=== PATIENT | female | born 1940 | race Asian ===

== ENCOUNTER 2018-03-07 13:04 | Emergency (ER) | payer OTHER, MEDICARE ==
[2018-03-07 13:10] VITALS: BMI 21.4
--- NOTE | 2018-03-07 13:11 | PDOC ---
History of Present Illness - General Chief Complaint: Pain, Acute Stated Complaint: SHOULDER PAIN - History of Present Illness Initial Comments: The patient is a 77F w/ a history of breast ca s/p lumpectomy, hypothyroidism, T2DM, HTN, s/p L shoulder arthroplasty 3y ago who presents for evaluation of 10d of worsening, atraumatic, L shoulder pain. Denies joint swelling/redness, denies changes in sensation. Denies ever having had this type of pain since prior to her surgery. Denies fevers/chills, States that previously, her orthopedist would give her an injection in her shoulder that would alleviate this type of pain. Her orthopedist is in [place] and her PCP is unable to see her until next week. At baseline the patient reports she is able to abduct her L shoulder to 90degrees and is now unable to abduct her shoulder at all 2/2 pain Tried Tylenol 1g w/ minimal relief 03/07/18 13:42 Past History - Past Medical History Allergies/Adverse Reactions: Allergies Allergy/AdvReac Type Severity Reaction Status Date / Time No Known Allergies Allergy Verified 03/07/18 13:05 Home Medications: Ambulatory Orders Levothyroxine [Synthroid -] 25 mcg PO DAILY 03/07/18 Losartan Potassium 25 mg PO DAILY 03/07/18 Metformin HCl [Glucophage] 500 mg PO BID 03/07/18 Naproxen 500 gm MC BID PRN 10 Days #20 powder 03/07/18 Terazosin HCl [Hytrin] 1 mg PO DAILY 03/07/18 Review of Systems - Review of Systems Able to Perform ROS?: Yes Comments:: GENERAL/CONSTITUTIONAL: No fever or chills. No weakness HEAD, EYES, EARS, NOSE AND THROAT: No change in vision. No ear pain or discharge. No sore throat CARDIOVASCULAR: No chest pain or shortness of breath RESPIRATORY: No cough, wheezing, or hemoptysis GASTROINTESTINAL: No nausea, vomiting, diarrhea or constipation GENITOURINARY: No dysuria, frequency, or change in urination SKIN: No rash NEUROLOGIC: No headache, vertigo, loss of consciousness, or change in strength/ sensation ENDOCRINE: No increased thirst. No abnormal weight change HEMATOLOGIC/LYMPHATIC: No anemia, easy bleeding, or history of blood clots ALLERGIC/IMMUNOLOGIC: No hives or skin allergy 03/07/18 13:10 *Physical Exam - Vital Signs Vital Signs Temp Pulse Resp BP Pulse Ox 97 F L 92 H 16 140/60 100 03/07/18 13:06 03/07/18 13:06 03/07/18 13:06 03/07/18 13:06 03/07/18 13:06 03/07/18 13:10 - Physical Exam Comments: GENERAL: Awake, alert, and fully oriented, in no acute distress HEAD: No signs of trauma, normocephalic, atraumatic EYES: PERRLA, EOMI, sclera anicteric, conjunctiva clear ENT: Hearing grossly normal, nares patent, oropharynx clear without exudates. Moist mucosa LUNGS: breathing comfortably on room air, speaking in full sentences, symmetric chest rise HEART: Regular rate and rhythm, normal S1 and S2, no murmurs appreciated, peripheral pulses normal and equal bilaterally ABDOMEN: Soft, nontender, normoactive bowel sounds. No guarding, no rebound NEUROLOGICAL: Cranial nerves II through XII grossly intact. Normal speech, normal gait, no focal sensorimotor deficits SKIN: Warm, Dry, normal turgor, no rashes or lesions noted RUE: Inspection: No erythema or ecchymosis. Exquisite TTP over acromion process and with AROM/PROM of the shoulder; no distal TTP or limitations in ROM; no open wounds. Compartments soft and compressible Sensation: sensation present to light touch m/r/u n Motor: intact AIN/PIN/Ulnar in hand; 5/5 Wrist flex/ext; 5/5 Elbow flex/ext; 2/ 5 Shoulder ABd,Flex limited by pain Vascular: 2+ radial pulse palpated, BCR all fingers <2 sec. LUE: Inspection: No erythema or ecchymosis. No tenderness, no obvious abnormalities, no open wounds. Compartments soft and compressible, pain within proportion, no pain to passive stretch Sensation: sensation present to light touch m/r/u n Motor: intact AIN/PIN/Ulnar in hand; 5/5 Wrist flex/ext; 5/5 Elbow flex/ext; 5/ 5 Shoulder ABd,Flex Vascular: 2+ radial pulse palpated, BCR all fingers <2 sec. 03/07/18 13:10 ED Treatment Course - LABORATORY CBC & Chemistry Diagram: 03/07/18 14:02 03/07/18 14:02 Medical Decision Making - Medical Decision Making The patient is a 77F w/ a history of b/l shoulder arthroplasty who presents for evaluation of 10d of worsening L shoulder pain and subsequent decreased ROM. Shoulder is point TTP over acromion. CMP, CBC, cardiac enzymes ECG CXR, L shoulder series Toradol 15mg IV once 03/07/18 13:46 No leukocytosis Hgb 10, at baseline per pt 03/07/18 14:27 Trop I neg Lytes wnl no VAHID 03/07/18 15:28 XR w/o evidence of fx, dislocation, effusion, or SQ air Patient provided with sling Rx for Naproxen to pt's pharmacy Discharge instructions and return precautions given Ortho referral given Plan discussed w/ patient is in agreement and verbalized understanding Dispo: Home w/ ortho f/u 03/07/18 18:44 *DC/Admit/Observation/Transfer Diagnosis at time of Disposition: Left shoulder pain Qualifiers: Chronicity: acute Qualified Code(s): M25.512 - Pain in left shoulder - Discharge Dispostion Disposition: HOME Condition at time of disposition: Stable Decision to Admit order: No - Prescriptions Prescriptions: Naproxen 500 gm MC BID PRN 10 Days #20 powder PRN Reason: Pain - Referrals Referrals: Christopher Smith DO [Staff Physician] - - Patient Instructions Printed Discharge Instructions: DI for Shoulder Pain Additional Instructions: You were seen in the Emergency Department today for evaluation of left shoulder pain. You were evaluated and found not to have a fracture or dislocations. There is also no evidence of infection, build up of joint fluid, or overt joint inflammation. Please review the handout provided at discharge. You were given a referral to orthopedics, please follow up with them as well as your primary care provider. Return to the Emergency Department if you develop worsening pain, joint swelling or redness, changes in sensation, fevers/chills, or any new/concerning symptoms. - Post Discharge Activity
[2018-03-07] MEDS ORDERED: KETOROLAC TROMETHAMINE 15 MG/ML VIAL IVPUSH ONE (13:41)
[2018-03-07] MEDS ORDERED: KETOROLAC TROMETHAMINE 15 MG/ML VIAL ONE (13:51)
[2018-03-07 14:07] LABS: HEMOGLOBIN 10.5 GM/dL (10.7-15.3); MCH 25.6 pg (25.7-33.7); MCHC 31.8 g/dl (32.0-36.0); MEAN CELL VOLUME 80.6 fl (80-96); MEAN PLT VOLUME 7.6 fl (7.5-11.1); PLATELET COUNT 309 K/MM3 (134-434); RBC 4.09 M/mm3 (3.60-5.2); RDW 15.5 % (11.6-15.6); WHITE BLOOD COUNT 6.1 K/mm3 (4.0-10.0)
--- NOTE | 2018-03-07 14:33 | PDOC ---
Attending Attestation - Resident Resident Name: Jasper Mejia - ED Attending Attestation I have performed the following: I have examined & evaluated the patient, The case was reviewed & discussed with the resident, I agree w/resident's findings & plan, Exceptions are as noted - HPI HPI: 03/07/18 14:23 This is a 77 year old female with a significant past medical history of breast cancer in remission on tamoxifen, HLD, and HTN, that presents to the emergency department today complaining of left shoulder pain for 10 days. Patient notes she began feeling pain in the shoulder 10 days ago without any trauma. Patient reports that pain has gotten progressively worse, and is exacerbated with any movement of the left upper extremity. She notes the pain she is currently experiencing is similar to what she felt prior to her TSR, but she has not felt anything similar after the surgery. She does note the pain became worse after 2 sessions of PT in the last week, especially after the kinesio tape was placed. She removed the KT this AM from her shoulder with improvement. Patient tried Tylenol, with minimal relief. Patient notes she has had a steroid injection in the past which provided her with significant relief. Her injections were given by her ortho surgeon in [place] and thus she called 911 today to come to the ED for a steroid injection. Denies CP, SOB. Shoulder pain not worse with exertion, not pleuritic. Denies fevers, chills, dizziness, diaphoresis, weakness/numbness Denies n/v/d, abd pain Denies paresthesia. Surgical hx: L partial mastectomy and L shoulder arthroplasty. PCP: none reported - Physicial Exam PE: 03/07/18 14:33 GENERAL: Awake, alert, and fully oriented, in no acute distress EYES: EOMI, sclera anicteric, conjunctiva clear ENT: Oropharynx clear without exudates. Moist mucosa NECK: Normal ROM, supple, no lymphadenopathy, JVD, or masses LUNGS: Breath sounds equal, clear to auscultation bilaterally. No wheezes, and no crackles HEART: Regular rate and rhythm, normal S1 and S2, no murmurs, rubs or gallops ABDOMEN: Soft, nontender, normoactive bowel sounds. No guarding, no rebound. No masses EXTREMITIES: L shoulder with exquisite ttp over the L acromion, worse with ROM of the L shoulder. No edema. No cords, erythema. 2+ peripheral pulses. WWP distally NEUROLOGICAL: Normal speech, cranial nerves intact, 5/5 strength in all 4 extremities, normal sensation to light touch in all 4 extremities, normal gait SKIN: Warm, Dry, normal turgor, no rashes or lesions noted. - Medical Decision Making 03/07/18 14:43 77yo F hx HTN, HL, DM, breast ca in remission presents to the ED with atraumatic L shoulder pain worse after starting PT. Pt requesting steroid injection as her previous ortho is in [place]. This is likely musculoskeletal pain but as the pt has risk factors for ACS, trop and EKG have been checked which are wnl. CXR ordered to eval for structural disease, infiltrate or new mets ordered as is dedicated L shoulder XR. Will give toradol for pain control and reassess. 03/07/18 17:25 Pt feels better with toradol Labs wnl. CXR and L shoulder film with no acute findings Likely MSK pain PT's son at bedside requesting ortho to give steroid injection in ED Ortho c/s, but no call back yet Pt would prefer not to wait for ortho and would like to f/u as an outpt Referral given Pt is clinically well appearing, stable for DC home I discussed the physical exam findings, ancillary test results and final diagnoses with the patient. I answered all of the patient's questions. The patient was satisfied with the care received and felt comfortable with the discharge plan and treatment plan. The patient will call their primary care physician within 24 hours to arrange follow-up and will return to the Emergency Department with any new, persistent or worsening symptoms. Heart Score/ECG Review #1 03/07/18 14:42 Twelve-lead EKG was performed and reviewed by me. Normal sinus rhythm, rate 76. Normal axis and intervals. No ST elevations. No significant change compared to EKG from 03/03/2006.
[2018-03-07 14:34] LABS: ALBUMIN 3.5 g/dl (3.4-5.0); ALK PHOS 73 U/L (45-117); ANION GAP 11 MMOL/L (8-16); BILIRUBIN,TOTAL 0.3 mg/dL (0.2-1); BLOOD UREA NITROGEN 16 mg/dL (7-18); CALCIUM 8.3 mg/dL (8.5-10.1); CHLORIDE 96 mmol/L (98-107); CO2 24 mmol/L (21-32); CREATININE 0.7 mg/dL (0.55-1.3); GLUCOSE,RANDOM 92 mg/dL (74-106); POTASSIUM 4.5 mmol/L (3.5-5.1); SGOT/AST 36 U/L (15-37); SGPT/ALT 31 U/L (13-61); SODIUM 131 mmol/L (136-145); TOT PROT 7.5 g/dl (6.4-8.2)
--- NOTE | 2018-03-07 15:39 | EKG ---
Test Reason : Blood Pressure : / mmHG Vent. Rate : 076 BPM Atrial Rate : 076 BPM P-R Int : 146 ms QRS Dur : 078 ms QT Int : 378 ms P-R-T Axes : 058 -05 014 degrees QTc Int : 425 ms NORMAL SINUS RHYTHM POSSIBLE LEFT ATRIAL ENLARGEMENT LEFT VENTRICULAR HYPERTROPHY CANNOT RULE OUT SEPTAL INFARCT , AGE UNDETERMINED ABNORMAL ECG WHEN COMPARED WITH ECG OF 03-MAR-2006 17:30, MINIMAL CRITERIA FOR SEPTAL INFARCT ARE NOW PRESENT NONSPECIFIC T WAVE ABNORMALITY NO LONGER EVIDENT IN LATERAL LEADS Confirmed by MEDARDO GORDON, JESUS ([id number]) on 03/07/2018 3:38:57 PM Referred By: Confirmed By:JESUS BATRES MD
[2018-03-07 17:38] VITALS: BP 157/71; PULSE 76; TEMP 98.3
== END 2018-03-07 17:39 | disposition home or self-care (01) ==
LOC: JER 13:04
PROC: 3E0333Z Introduction of Anti-inflammatory into Peripheral Vein, Percutaneous Approach (ICD-10-PCS; principal; 2018-03-07)
DX: M25.512 Pain in left shoulder (principal); I10 Essential (primary) hypertension; E11.9 Type 2 diabetes mellitus without complications; Z79.84 Long term (current) use of oral hypoglycemic drugs; E03.9 Hypothyroidism, unspecified; Z85.3 Personal history of malignant neoplasm of breast
CPT/HCPCS: 36415; 71046-TC-FY; 73030-TC-LT-FY; 80053; 82550; 82553; 84484; 85027; 93005; 93010; 99283-25

== ENCOUNTER → 2018-03-22 | Day surgery (SDC) | payer OTHER, MEDICARE ==
[~2018-03-22] MED LIST: IBUPROFEN 400 MG TABLET (FP) PO PRN
--- NOTE | 2018-03-22 03:01 | HP ---
History & Physical Update - History History: No Change - Physical Physical: No Change - Assessment Assessment: No Change - Plan Plan: No Change (No change in HP from 03/13/18)
[2018-03-22 07:12] VITALS: BP 124/62; PULSE 80; TEMP 98.3; BMI 23.2
== END | disposition home or self-care (01) ==
LOC: JASU-SURG 06:18 → EDSTATUS 14:20
PROVIDERS: ATTEND Obstetrics & Gynecology
PROC: 3E013GC Introduction of Other Therapeutic Substance into Subcutaneous Tissue, Percutaneous Approach (ICD-10-PCS; principal; 2018-03-22)
DX: Z53.8 Procedure and treatment not carried out for other reasons (principal)
CPT/HCPCS: 86850; 86900; 86901

== ENCOUNTER 2018-09-20 07:20 | Day surgery (SDC) | payer OTHER, MEDICARE ==
[2018-09-20] MEDS ORDERED: ZOLEDRONIC ACID 4 MG in SODIUM CHLORIDE 100 ML IVPB ONE (10:00)
[2018-09-20 11:59] LABS: BASO % 0.8 % (0-2.0); EOS % 1.5 % (0-4.5); HEMATOCRIT 36.1 % (32.4-45.2); HEMOGLOBIN 11.8 GM/dL (10.7-15.3); LYMPH % 20.6 % (8-40); MCH 28.9 pg (25.7-33.7); MCHC 32.6 g/dl (32.0-36.0); MEAN CELL VOLUME 88.6 fl (80-96); MEAN PLT VOLUME 8.3 fl (7.5-11.1); MONO % 10.4 % (3.8-10.2); NEUT % 66.7 % (42.8-82.8); PLATELET COUNT 253 K/MM3 (134-434); RBC 4.07 M/mm3 (3.60-5.2); RDW 18.4 % (11.6-15.6); WHITE BLOOD COUNT 5.5 K/mm3 (4.0-10.0)
[2018-09-20 12:22] LABS: ALBUMIN 3.2 g/dl (3.4-5.0); BILIRUBIN,DIRECT 0.1 mg/dL (0.0-0.2); BILIRUBIN,TOTAL 0.4 mg/dL (0.2-1); CALCIUM 8.6 mg/dL (8.5-10.1); CREATININE 0.8 mg/dL (0.55-1.3); MAGNESIUM 2.1 mg/dL (1.8-2.4); POTASSIUM 4.5 mmol/L (3.5-5.1); TOT PROT 6.9 g/dl (6.4-8.2)
[2018-09-20 17:32] VITALS: TEMP 98.9
[2018-09-20 17:34] VITALS: BP 158/72; PULSE 80
== END 2018-09-20 13:40 | disposition home or self-care (01) ==
LOC: JONCCHEMO 07:20 → J7W 11:52 → JONCCHEMO 13:40
PROVIDERS: ATTEND Internal Medicine Hematology & Oncology
PROC: 3E033GC Introduction of Other Therapeutic Substance into Peripheral Vein, Percutaneous Approach (ICD-10-PCS; principal; 2018-09-20)
DX: C50.919 Malignant neoplasm of unspecified site of unspecified female breast (principal); C78.00 Secondary malignant neoplasm of unspecified lung; C79.51 Secondary malignant neoplasm of bone
CPT/HCPCS: 36415; 80048; 80076; 82728; 83036; 83735; 85025; 96417; J3489

== ENCOUNTER 2018-09-24 15:44 | Emergency (ER) | payer OTHER, MEDICARE ==
[2018-09-24 15:58] VITALS: BP 157/71; PULSE 96; TEMP 98; BMI 23.4
--- NOTE | 2018-09-24 17:04 | PDOC ---
Attending Attestation - Resident Resident Name: Young Love - ED Attending Attestation I have performed the following: I have examined & evaluated the patient, The case was reviewed & discussed with the resident, I agree w/resident's findings & plan, Exceptions are as noted - HPI HPI: 09/24/18 17:03 thsi 77 yo female was in outpt radiology and tripped and sustained a forehead laceration - Physicial Exam PE: 09/24/18 18:48 77 yo female had a witnessed mechanical fall in outpt radiology and sustained a forehead laceration head there is a forehead laceration neck no midline tenderness lungs no rales cvs [id number] abd nontender ext chronic left shoulder pain neuro axox3 skin warm and dry 09/24/18 23:28 - Medical Decision Making 09/24/18 23:29 ct scan of head no acute intracranial pathology ct scan of left shoulder shows the same fracture,no changed from previous ct scan pt to continue her follow up with her orthopedist d/c home
--- NOTE | 2018-09-24 17:06 | PDOC ---
History of Present Illness - General Chief Complaint: Injury Stated Complaint: RAPID RESPONSE / LAC Time Seen by Provider: 09/24/18 16:46 - History of Present Illness Initial Comments: 09/24/18 17:37 77 year old female with a significant past medical history of breast cancer with mets, bilateral shoulder replacement, HLD, and HTN, that presents to the emergency department today after a fall she sustained in our radiology hallway as she was on her way to get a b/l xray of the shoulders. She fell on her forehead and sustained a laceration. She did not end up getting her shoulder xrays. Past History - Past Medical History Allergies/Adverse Reactions: Allergies Allergy/AdvReac Type Severity Reaction Status Date / Time acetaminophen [From Vicodin] Allergy "can't Verified 09/24/18 16:01 remember reaction" fentanyl Allergy "feels out Verified 09/24/18 16:01 of it" gabapentin Allergy Verified 09/24/18 16:01 hydrocodone [From Vicodin] Allergy "can't Verified 09/24/18 16:01 remember reaction" indomethacin [From Indocin] Allergy "couldn't Verified 09/24/18 16:01 open eyes" sulfamethoxazole Allergy "rash on Verified 09/24/18 16:01 [From Bactrim] hands" trimethoprim [From Bactrim] Allergy "rash on Verified 09/24/18 16:01 hands" ibuprofen AdvReac "burning Verified 09/24/18 16:01 in stomach" naproxen [From Aleve] AdvReac "burning Verified 09/24/18 16:01 in stomach" oxaprozin [From Daypro] AdvReac "stomach Verified 09/24/18 16:01 intolerance-burning" Home Medications: Ambulatory Orders Levothyroxine [Synthroid -] 25 mcg PO DAILY 03/07/18 Losartan Potassium 25 mg PO BID 03/07/18 Metformin HCl [Glucophage] 500 mg PO BID 03/07/18 Terazosin HCl [Hytrin] 1 mg PO HS 03/07/18 Aspirin Coated [Ecotrin -] 81 mg PO DAILY 03/20/18 Famotidine [Pepcid] 20 mg PO PRN PRN 03/20/18 Omeprazole 40 mg PO DAILY 03/20/18 Simvastatin 10 mg PO HS 03/20/18 Tamoxifen Citrate 20 mg PO DAILY 03/20/18 Meloxicam 7.5 mg PO BID 03/22/18 Anemia: Yes Asthma: No Cancer: Yes (breast left mastectomy) Cardiac Disorders: No CVA: No COPD: No CHF: No Dementia: No Diabetes: Yes GI Disorders: Yes (acid reflux) Disorders: No HTN: Yes Hypercholesterolemia: Yes Liver Disease: No Seizures: No Thyroid Disease: Yes (hyper) - Surgical History Abdominal Surgery: No Orthopedic Surgery: (trena shoulder replacement) - Suicide/Smoking/Psychosocial Hx Smoking History: Never smoked Have you smoked in the past 12 months: No Information on smoking cessation initiated: No Hx Alcohol Use: No Drug/Substance Use Hx: No Substance Use Type: None Hx Substance Use Treatment: No Review of Systems - Review of Systems Able to Perform ROS?: Yes Is the patient limited Sami proficient: No Constitutional: No: Symptoms Reported HEENTM: Yes: See HPI Respiratory: No: Symptoms reported Cardiac (ROS): No: Symptoms Reported : No: Symptoms Reported Musculoskeletal: Yes: See HPI Integumentary: No: Symptoms Reported All Other Systems: Reviewed and Negative *Physical Exam - Vital Signs Last Vital Signs Temp Pulse Resp BP Pulse Ox 98.0 F 96 H 16 157/71 100 09/24/18 15:45 09/24/18 15:45 09/24/18 15:45 09/24/18 15:45 09/24/18 15:45 - Physical Exam General Appearance: Yes: Thin HEENT: positive: Other (3cm laceration over left forehead. ) Respiratory/Chest: positive: Lungs Clear, Normal Breath Sounds. negative: Chest Tender, Respiratory Distress Cardiovascular: positive: Regular Rhythm, Regular Rate, S1, S2 Gastrointestinal/Abdominal: positive: Normal Bowel Sounds, Flat, Soft. negative : Tender Musculoskeletal: positive: Normal Inspection. negative: CVA Tenderness Extremity: positive: Normal Capillary Refill, Normal Inspection, Other (left arm in a sling. ) Integumentary: positive: Normal Color, Dry, Warm Neurologic: positive: Fully Oriented, Alert, Normal Mood/Affect, Normal Response , Motor Strength 5/5 Procedures - Laceration/Wound Repair Left Anterior Head Wound Length: 2.6 to 5.0 cm Wound Explored: clean Wound's Depth, Shape: superficial Irrigated w/ Saline: Yes Anesthesia: 2% Lidocaine Wound Repaired With: Sutures Suture Size/Type: 6:0, proline Number of Sutures: 6 ED Treatment Course - RADIOLOGY Radiology Studies Ordered: Category Date Time Status CERVICAL SPINE CT W/O CONTR [CT] Stat CT Scan 09/24/18 16:[address] WITHOUT CONTRAST [CT] Stat CT Scan 09/24/18 16:47 Ordered Medical Decision Making - Medical Decision Making 09/24/18 20:08 77f who sustained laceration to forehead s/p fall. Will get head and cervical ct to r/o fracture or bleed. Ct read negative for fracture of bleed. Laceration repaired with 6x sutures. Pending Shoulder xrays read. 09/24/18 20:17 No fracture seen on xray. Patient still complains of pain of her right shoulder , says she would feel more comfortable getting a ct shoulder as it uncovered a fracture the last time. 09/24/18 20:57 09/24/18 23:[address] shoulder read. 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 No gross dislocation or acute fracture is identified. Previously described left acromial nonhealing fracture again seen. Orthopedics consult is suggested. Patient will follow up with Orthopedic surgery. Patient now complaining of pain upon swallowing, small pus-filled sac in top corner of mouth. Will follow up with PCP or dentist. *DC/Admit/Observation/Transfer Diagnosis at time of Disposition: Fall, Left shoulder pain - Discharge Dispostion Disposition: HOME Condition at time of disposition: Improved Decision to Admit order: No - Referrals Referrals: De Lovell DO [Staff Physician] - - Patient Instructions Printed Discharge Instructions: DI for Laceration Repair -- Simple Additional Instructions: Come back in 3 to 5 days for suture removal. Follow up with your orthopedic surgeon about your fracture (unchanged). Come back to the emergency department for any new, worsening or concerning symptom. - Post Discharge Activity
[2018-09-24] MEDS ORDERED: LIDOCAINE HCL 2% (50ML VIAL) SQ ONE (18:56)
[2018-09-24] MEDS ORDERED: LIDOCAINE HCL 2% (20ML MULTI-DOSE VIAL) NR ONE (19:02)
== END 2018-09-25 00:05 | disposition home or self-care (01) ==
LOC: JER 15:44
PROC: 0HQ1XZZ Repair Face Skin, External Approach (ICD-10-PCS; principal; 2018-09-24)
PROC: 3E013BZ Introduction of Anesthetic Agent into Subcutaneous Tissue, Percutaneous Approach (ICD-10-PCS; 2018-09-24)
DX: S01.81XA Laceration without foreign body of other part of head, initial encounter (principal); W18.39XA Other fall on same level, initial encounter; Y93.89 Activity, other specified; Y92.232 Corridor of hospital as the place of occurrence of the external cause; Y99.8 Other external cause status; I10 Essential (primary) hypertension; E78.00 Pure hypercholesterolemia, unspecified; E05.90 Thyrotoxicosis, unspecified without thyrotoxic crisis or storm; E11.9 Type 2 diabetes mellitus without complications; Z79.84 Long term (current) use of oral hypoglycemic drugs; K21.9 Gastro-esophageal reflux disease without esophagitis; Z85.3 Personal history of malignant neoplasm of breast; Z90.12 Acquired absence of left breast and nipple
CPT/HCPCS: 12013; 70450-TC; 71046-TC-FY; 71101-TC-LT-FY; 72125-TC; 73030-TC-LT-FY; 73030-TC-RT-FY; 73200-TC-RT; 96372; 99282-25

== ENCOUNTER 2018-09-30 02:21 | Emergency (ER) | payer OTHER, MEDICARE | END 2018-09-30 06:55 | disposition home or self-care (01) | LOC: JER 02:21 ==

== ENCOUNTER 2018-12-13 07:05 | Day surgery (SDC) | payer OTHER, MEDICARE ==
[2018-12-13 08:51] LABS: BASO % 0.7 % (0-2.0); EOS % 2.9 % (0-4.5); HEMOGLOBIN 12.7 GM/dL (10.7-15.3); LYMPH % 21.1 % (8-40); MCH 30.3 pg (25.7-33.7); MCHC 33.4 g/dl (32.0-36.0); MEAN CELL VOLUME 90.7 fl (80-96); MEAN PLT VOLUME 8.2 fl (7.5-11.1); MONO % 9.3 % (3.8-10.2); PLATELET COUNT 241 K/MM3 (134-434); RBC 4.18 M/mm3 (3.60-5.2); RDW 13.8 % (11.6-15.6); WHITE BLOOD COUNT 5.3 K/mm3 (4.0-10.0)
[2018-12-13 09:13] LABS: ALBUMIN 3.8 g/dl (3.4-5.0); BILIRUBIN,DIRECT 0.2 mg/dL (0.0-0.2); BILIRUBIN,TOTAL 0.4 mg/dL (0.2-1); BLOOD UREA NITROGEN 15.9 mg/dL (7-18); CALCIUM 8.9 mg/dL (8.5-10.1); CREATININE 0.8 mg/dL (0.55-1.3); MAGNESIUM 2.2 mg/dL (1.8-2.4); POTASSIUM 4.2 mmol/L (3.5-5.1); TOT PROT 7.8 g/dl (6.4-8.2)
[2018-12-13] MEDS ORDERED: ZOLEDRONIC ACID 4 MG in SODIUM CHLORIDE 100 ML IVPB ONE (10:00)
[2018-12-13 10:22] LABS: INR 0.92 (0.83-1.09); PROTHROMBIN TIME (PATIENT) 10.9 SEC (9.7-13.0)
[2018-12-13 13:10] VITALS: TEMP 97.5
[2018-12-13 13:15] VITALS: BP 168/48; PULSE 81
[2018-12-14 08:06] LABS: CARCINOEMBRYONIC ANTIGEN 4.3 ng/mL (0.0-4.7)
== END 2018-12-13 11:30 | disposition home or self-care (01) | DRG 951 ==
LOC: JONCCHEMO 07:05 → J7W 07:47 → UNDOADMIN 07:47 → JONCCHEMO 11:30 → UNDODISIN 11:30
PROVIDERS: ATTEND Internal Medicine Hematology & Oncology
PROC: 3E033GC Introduction of Other Therapeutic Substance into Peripheral Vein, Percutaneous Approach (ICD-10-PCS; principal; 2018-12-13)
DX: C50.919 Malignant neoplasm of unspecified site of unspecified female breast (principal); C79.51 Secondary malignant neoplasm of bone; C78.00 Secondary malignant neoplasm of unspecified lung; Z76.89 Persons encountering health services in other specified circumstances
CPT/HCPCS: 36415; 80048; 80076; 82378; 82728; 83036; 83540; 83550; 83735; 85025; 85610; 86300; 96417; J3489

== ENCOUNTER 2019-01-10 05:31 | Day surgery (SDC) | payer OTHER, MEDICARE ==
[2019-01-10] MEDS ORDERED: ZOLEDRONIC ACID 4 MG in SODIUM CHLORIDE 100 ML IVPB ONE (09:00)
[2019-01-10 09:33] LABS: BASO % 0.9 % (0-2.0); EOS % 2.5 % (0-4.5); HEMATOCRIT 38.9 % (32.4-45.2); HEMOGLOBIN 12.9 GM/dL (10.7-15.3); LYMPH % 22.1 % (8-40); MCH 30.1 pg (25.7-33.7); MCHC 33.2 g/dl (32.0-36.0); MEAN CELL VOLUME 90.5 fl (80-96); MEAN PLT VOLUME 8.3 fl (7.5-11.1); MONO % 10.1 % (3.8-10.2); NEUT % 64.4 % (42.8-82.8); PLATELET COUNT 276 K/MM3 (134-434); RDW 13.7 % (11.6-15.6); WHITE BLOOD COUNT 5.4 K/mm3 (4.0-10.0)
[2019-01-10 09:55] LABS: ALBUMIN 3.7 g/dl (3.4-5.0); BILIRUBIN,DIRECT 0.2 mg/dL (0.0-0.2); BILIRUBIN,TOTAL 0.4 mg/dL (0.2-1); BLOOD UREA NITROGEN 14.7 mg/dL (7-18); CALCIUM 9.2 mg/dL (8.5-10.1); CREATININE 0.9 mg/dL (0.55-1.3); IRON SERUM 79 ug/dL (50-175); MAGNESIUM 2.2 mg/dL (1.8-2.4); POTASSIUM 4.3 mmol/L (3.5-5.1); TOT PROT 7.5 g/dl (6.4-8.2); TOTAL IRON BINDING CAPACITY 444 ug/dL (250-450)
[2019-01-10 14:39] VITALS: TEMP 97.6
[2019-01-10 15:41] VITALS: BP 154/58; PULSE 82
== END 2019-01-10 11:45 | disposition home or self-care (01) ==
LOC: JONCCHEMO 05:31 → J7W 09:29 → JONCCHEMO 11:45
PROVIDERS: ATTEND Internal Medicine Hematology & Oncology
PROC: 3E033GC Introduction of Other Therapeutic Substance into Peripheral Vein, Percutaneous Approach (ICD-10-PCS; principal; 2019-01-10)
DX: C50.919 Malignant neoplasm of unspecified site of unspecified female breast (principal); C79.51 Secondary malignant neoplasm of bone; C78.00 Secondary malignant neoplasm of unspecified lung
CPT/HCPCS: 36415; 80048; 80076; 82378; 82728; 82784; 83540; 83550; 83735; 85025; 86300; 96365; 96417; J3489

== ENCOUNTER 2019-02-08 06:06 | Day surgery (SDC) | payer OTHER, MEDICARE ==
[2019-02-08] MEDS ORDERED: ZOLEDRONIC ACID 4 MG in SODIUM CHLORIDE 100 ML IVPB ONE (10:00)
[2019-02-08 10:03] LABS: BASO % 0.7 % (0-2.0); EOS % 2.7 % (0-4.5); HEMOGLOBIN 12.4 GM/dL (10.7-15.3); LYMPH % 22.7 % (8-40); MCH 29.6 pg (25.7-33.7); MCHC 32.7 g/dl (32.0-36.0); MEAN CELL VOLUME 90.4 fl (80-96); MONO % 9.4 % (3.8-10.2); NEUT % 64.5 % (42.8-82.8); PLATELET COUNT 290 K/MM3 (134-434); RDW 14.2 % (11.6-15.6); WHITE BLOOD COUNT 5.8 K/mm3 (4.0-10.0)
[2019-02-08 10:44] LABS: ALBUMIN 3.8 g/dl (3.4-5.0); BILIRUBIN,TOTAL 0.4 mg/dL (0.2-1); BLOOD UREA NITROGEN 16.4 mg/dL (7-18); CALCIUM 8.9 mg/dL (8.5-10.1); MAGNESIUM 2.3 mg/dL (1.8-2.4); POTASSIUM 4.4 mmol/L (3.5-5.1); TOT PROT 7.7 g/dl (6.4-8.2)
[2019-02-08 11:56] VITALS: PULSE 77; TEMP 97.8
[2019-02-08 11:58] VITALS: BP 113/52
== END 2019-02-08 11:53 | disposition home or self-care (01) ==
LOC: JONCCHEMO 06:06 → J7W 10:46 → JONCCHEMO 11:53
PROVIDERS: ATTEND Internal Medicine Hematology & Oncology
PROC: 3E033GC Introduction of Other Therapeutic Substance into Peripheral Vein, Percutaneous Approach (ICD-10-PCS; principal; 2019-02-08)
DX: C50.919 Malignant neoplasm of unspecified site of unspecified female breast (principal); C79.51 Secondary malignant neoplasm of bone; C78.00 Secondary malignant neoplasm of unspecified lung; Z76.89 Persons encountering health services in other specified circumstances
CPT/HCPCS: 36415; 80053; 82728; 83540; 83550; 83735; 85025; 96374; J3489

== ENCOUNTER 2019-03-07 07:07 | Day surgery (SDC) | payer OTHER, MEDICARE ==
[2019-03-07] MEDS ORDERED: ZOLEDRONIC ACID 4 MG in SODIUM CHLORIDE 100 ML IVPB ONE (10:00)
[2019-03-07 12:02] LABS: BASO % 1.5 % (0-2.0); EOS % 1.8 % (0-4.5); HEMATOCRIT 37.9 % (32.4-45.2); HEMOGLOBIN 12.3 GM/dL (10.7-15.3); LYMPH % 23.7 % (8-40); MCH 29.8 pg (25.7-33.7); MCHC 32.5 g/dl (32.0-36.0); MEAN CELL VOLUME 91.8 fl (80-96); MEAN PLT VOLUME 8.4 fl (7.5-11.1); MONO % 7.3 % (3.8-10.2); NEUT % 65.7 % (42.8-82.8); PLATELET COUNT 300 K/MM3 (134-434); RBC 4.13 M/mm3 (3.60-5.2); RDW 13.8 % (11.6-15.6); WHITE BLOOD COUNT 6.2 K/mm3 (4.0-10.0)
[2019-03-07 12:41] LABS: ALBUMIN 3.7 g/dl (3.4-5.0); BILIRUBIN,TOTAL 0.6 mg/dL (0.2-1); CREATININE 0.9 mg/dL (0.55-1.3); MAGNESIUM 2.3 mg/dL (1.8-2.4); POTASSIUM 4.6 mmol/L (3.5-5.1); TOT PROT 7.7 g/dl (6.4-8.2)
[2019-03-07 15:44] LABS: IRON SERUM 84 ug/dL (50-175); TOTAL IRON BINDING CAPACITY 437 ug/dL (250-450)
[2019-03-07 15:53] VITALS: BP 152/53; PULSE 82; TEMP 97.9
[2019-03-09 05:11] LABS: CARCINOEMBRYONIC ANTIGEN 4.3 ng/mL (0.0-4.7)
== END 2019-03-07 15:15 | disposition home or self-care (01) ==
LOC: JONCCHEMO 07:07 → J7W 14:05 → JONCCHEMO 15:15
PROVIDERS: ATTEND Internal Medicine Hematology & Oncology
PROC: 3E033GC Introduction of Other Therapeutic Substance into Peripheral Vein, Percutaneous Approach (ICD-10-PCS; principal; 2019-03-07)
DX: C50.919 Malignant neoplasm of unspecified site of unspecified female breast (principal); C79.51 Secondary malignant neoplasm of bone; C78.00 Secondary malignant neoplasm of unspecified lung; Z76.89 Persons encountering health services in other specified circumstances
CPT/HCPCS: 36415; 80053; 82378; 83540; 83550; 83735; 85025; 86300; 96365; J3489

== ENCOUNTER 2019-04-02 06:55 | Day surgery (SDC) | payer MEDICARE, OTHER ==
[2019-04-02] MEDS ORDERED: FULVESTRANT 250 MG/5 ML SYRINGE IM ONE (10:00)
[2019-04-02] MEDS ORDERED: ZOLEDRONIC ACID 4 MG in SODIUM CHLORIDE 100 ML IVPB ONE (10:00)
[2019-04-02 10:02] LABS: BASO % 1.2 % (0-2.0); EOS % 3.6 % (0-4.5); HEMATOCRIT 35.3 % (32.4-45.2); HEMOGLOBIN 11.8 GM/dL (10.7-15.3); LYMPH % 22.2 % (8-40); MCH 30.3 pg (25.7-33.7); MCHC 33.5 g/dl (32.0-36.0); MEAN CELL VOLUME 90.5 fl (80-96); MEAN PLT VOLUME 8.1 fl (7.5-11.1); MONO % 9.7 % (3.8-10.2); NEUT % 63.3 % (42.8-82.8); PLATELET COUNT 279 K/MM3 (134-434); RDW 13.8 % (11.6-15.6); WHITE BLOOD COUNT 5.3 K/mm3 (4.0-10.0)
[2019-04-02 10:42] LABS: ALBUMIN 3.5 g/dl (3.4-5.0); BILIRUBIN,TOTAL 0.3 mg/dL (0.2-1); BLOOD UREA NITROGEN 18.4 mg/dL (7-18); CALCIUM 9.3 mg/dL (8.5-10.1); CREATININE 1.1 mg/dL (0.55-1.3); POTASSIUM 4.3 mmol/L (3.5-5.1); TOT PROT 7.6 g/dl (6.4-8.2)
[2019-04-02 14:41] VITALS: BP 124/48; PULSE 87; TEMP 97.9
[2019-04-03 04:08] LABS: CARCINOEMBRYONIC ANTIGEN 4.5 ng/mL (0.0-4.7)
== END 2019-04-02 12:10 | disposition home or self-care (01) ==
LOC: JONCCHEMO 06:55 → J7W 10:38 → JONCCHEMO 12:10
PROVIDERS: ATTEND Internal Medicine Hematology & Oncology
PROC: 3E02305 Introduction of Other Antineoplastic into Muscle, Percutaneous Approach (ICD-10-PCS; principal; 2019-04-02)
PROC: 3E033GC Introduction of Other Therapeutic Substance into Peripheral Vein, Percutaneous Approach (ICD-10-PCS; 2019-04-02)
DX: Z51.11 Encounter for antineoplastic chemotherapy (principal); C50.412 Malignant neoplasm of upper-outer quadrant of left female breast; C78.01 Secondary malignant neoplasm of right lung; C79.51 Secondary malignant neoplasm of bone; Z17.0 Estrogen receptor positive status [ER+]; I10 Essential (primary) hypertension; E78.00 Pure hypercholesterolemia, unspecified
CPT/HCPCS: 36415; 80053; 82378; 82728; 83540; 83550; 83735; 85025; 86300; 96374; 96402; J3489; J9395

== ENCOUNTER 2019-04-15 07:07 | Day surgery (SDC) | payer OTHER, MEDICARE ==
[2019-04-15] MEDS ORDERED: FULVESTRANT 250 MG/5 ML SYRINGE IM ONE (10:00)
[2019-04-15 18:12] VITALS: BP 139/47; PULSE 88; TEMP 97.5
== END 2019-04-15 14:15 | disposition home or self-care (01) ==
LOC: JONCCHEMO 07:07 → J7W 13:49 → JONCCHEMO 14:15
PROVIDERS: ATTEND Internal Medicine Hematology & Oncology
DX: Z51.11 Encounter for antineoplastic chemotherapy (principal); C50.412 Malignant neoplasm of upper-outer quadrant of left female breast; C78.01 Secondary malignant neoplasm of right lung; C79.51 Secondary malignant neoplasm of bone; Z17.0 Estrogen receptor positive status [ER+]; I10 Essential (primary) hypertension; E78.00 Pure hypercholesterolemia, unspecified
CPT/HCPCS: 96402; J9395

== ENCOUNTER 2019-04-30 05:56 | Day surgery (SDC) | payer OTHER, MEDICARE ==
[2019-04-30] MEDS ORDERED: ZOLEDRONIC ACID 4 MG in SODIUM CHLORIDE 100 ML IVPB ONE (10:00)
[2019-04-30] MEDS ORDERED: FULVESTRANT 250 MG/5 ML SYRINGE IM ONE (10:00)
[2019-04-30 10:04] LABS: EOS % 1.9 % (0-4.5); HEMATOCRIT 34.9 % (32.4-45.2); HEMOGLOBIN 11.6 GM/dL (10.7-15.3); LYMPH % 14.9 % (8-40); MCHC 33.4 g/dl (32.0-36.0); MEAN CELL VOLUME 89.9 fl (80-96); MEAN PLT VOLUME 8.1 fl (7.5-11.1); MONO % 8.9 % (3.8-10.2); NEUT % 73.3 % (42.8-82.8); PLATELET COUNT 273 K/MM3 (134-434); RBC 3.88 M/mm3 (3.60-5.2); RDW 13.8 % (11.6-15.6); WHITE BLOOD COUNT 7.4 K/mm3 (4.0-10.0)
[2019-04-30 10:30] LABS: ALBUMIN 3.7 g/dl (3.4-5.0); BILIRUBIN,TOTAL 0.4 mg/dL (0.2-1); CALCIUM 8.9 mg/dL (8.5-10.1); CREATININE 1.1 mg/dL (0.55-1.3); MAGNESIUM 2.3 mg/dL (1.8-2.4); POTASSIUM 4.2 mmol/L (3.5-5.1); TOT PROT 7.8 g/dl (6.4-8.2)
[2019-04-30 12:56] VITALS: TEMP 97.8
[2019-04-30 13:03] VITALS: BP 165/82; PULSE 83
== END 2019-04-30 12:50 | disposition home or self-care (01) ==
LOC: JONCCHEMO 05:56 → J7W 10:43 → JONCCHEMO 12:50
PROVIDERS: ATTEND Internal Medicine Hematology & Oncology
PROC: 3E02305 Introduction of Other Antineoplastic into Muscle, Percutaneous Approach (ICD-10-PCS; principal; 2019-04-30)
PROC: 3E033GC Introduction of Other Therapeutic Substance into Peripheral Vein, Percutaneous Approach (ICD-10-PCS; 2019-04-30)
DX: Z51.11 Encounter for antineoplastic chemotherapy (principal); C50.412 Malignant neoplasm of upper-outer quadrant of left female breast; C79.51 Secondary malignant neoplasm of bone; C78.01 Secondary malignant neoplasm of right lung; Z17.0 Estrogen receptor positive status [ER+]
CPT/HCPCS: 36415; 80053; 83036; 83735; 85025; 96365; 96402; J3489; J9395

== ENCOUNTER 2019-05-28 05:26 | Day surgery (SDC) | payer OTHER, MEDICARE ==
[2019-05-28 09:39] LABS: BASO % 1.4 % (0-2.0); EOS % 4.2 % (0-4.5); HEMATOCRIT 35.1 % (32.4-45.2); HEMOGLOBIN 11.8 GM/dL (10.7-15.3); LYMPH % 21.7 % (8-40); MCH 30.4 pg (25.7-33.7); MCHC 33.7 g/dl (32.0-36.0); MEAN CELL VOLUME 90.1 fl (80-96); MEAN PLT VOLUME 7.9 fl (7.5-11.1); MONO % 7.8 % (3.8-10.2); NEUT % 64.9 % (42.8-82.8); PLATELET COUNT 284 K/MM3 (134-434); RBC 3.89 M/mm3 (3.60-5.2); RDW 13.6 % (11.6-15.6); WHITE BLOOD COUNT 5.5 K/mm3 (4.0-10.0)
[2019-05-28] MEDS ORDERED: FULVESTRANT 250 MG/5 ML SYRINGE IM ONE (10:00)
[2019-05-28] MEDS ORDERED: ZOLEDRONIC ACID 4 MG in SODIUM CHLORIDE 100 ML IVPB ONE (10:00)
[2019-05-28 10:18] LABS: ALBUMIN 3.5 g/dl (3.4-5.0); BILIRUBIN,TOTAL 0.3 mg/dL (0.2-1); BLOOD UREA NITROGEN 15.4 mg/dL (7-18); CALCIUM 8.6 mg/dL (8.5-10.1); CREATININE 1.1 mg/dL (0.55-1.3); MAGNESIUM 2.2 mg/dL (1.8-2.4); POTASSIUM 3.8 mmol/L (3.5-5.1); TOT PROT 7.7 g/dl (6.4-8.2)
[2019-05-28 15:17] VITALS: BP 141/56; PULSE 79; TEMP 97.4
== END 2019-05-28 11:25 | disposition home or self-care (01) ==
LOC: JONCCHEMO 05:26 → J7W 10:41 → JONCCHEMO 11:25
PROVIDERS: ATTEND Internal Medicine Hematology & Oncology
PROC: 3E02305 Introduction of Other Antineoplastic into Muscle, Percutaneous Approach (ICD-10-PCS; principal; 2019-05-28)
PROC: 3E033GC Introduction of Other Therapeutic Substance into Peripheral Vein, Percutaneous Approach (ICD-10-PCS; 2019-05-28)
DX: Z51.11 Encounter for antineoplastic chemotherapy (principal); C50.412 Malignant neoplasm of upper-outer quadrant of left female breast; C79.51 Secondary malignant neoplasm of bone; C78.01 Secondary malignant neoplasm of right lung; Z17.0 Estrogen receptor positive status [ER+]; I10 Essential (primary) hypertension; E78.00 Pure hypercholesterolemia, unspecified; E61.1 Iron deficiency; K21.9 Gastro-esophageal reflux disease without esophagitis
CPT/HCPCS: 36415; 80053; 82306; 82378; 83735; 85025; 86300; 96365; 96402; J3489; J9395

== ENCOUNTER 2019-06-25 07:17 | Day surgery (SDC) | payer OTHER, MEDICARE ==
[2019-06-25] MEDS ORDERED: FULVESTRANT 250 MG/5 ML SYRINGE IM ONE (10:00)
[2019-06-25] MEDS ORDERED: ZOLEDRONIC ACID 4 MG in SODIUM CHLORIDE 100 ML IVPB ONE (10:00)
[2019-06-25 10:25] LABS: BASO % 1.2 % (0-2.0); EOS % 5.8 % (0-4.5); HEMATOCRIT 33.7 % (32.4-45.2); HEMOGLOBIN 11.4 GM/dL (10.7-15.3); LYMPH % 22.3 % (8-40); MCH 30.4 pg (25.7-33.7); MCHC 33.7 g/dl (32.0-36.0); MEAN CELL VOLUME 90.2 fl (80-96); MONO % 8.9 % (3.8-10.2); NEUT % 61.8 % (42.8-82.8); PLATELET COUNT 269 K/MM3 (134-434); RBC 3.74 M/mm3 (3.60-5.2); RDW 14.1 % (11.6-15.6); WHITE BLOOD COUNT 5.6 K/mm3 (4.0-10.0)
[2019-06-25 10:48] LABS: ALBUMIN 3.5 g/dl (3.4-5.0); BILIRUBIN,TOTAL 0.4 mg/dL (0.2-1); BLOOD UREA NITROGEN 15.3 mg/dL (7-18); CALCIUM 8.3 mg/dL (8.5-10.1); CREATININE 1.1 mg/dL (0.55-1.3); MAGNESIUM 2.3 mg/dL (1.8-2.4); POTASSIUM 4.1 mmol/L (3.5-5.1); TOT PROT 7.7 g/dl (6.4-8.2)
[2019-06-25 18:15] VITALS: BP 151/61; PULSE 74; TEMP 98.1
== END 2019-06-25 12:05 | disposition home or self-care (01) ==
LOC: JONCCHEMO 07:17 → J7W 10:23 → JONCCHEMO 12:05
PROVIDERS: ATTEND Nurse Practitioner Family
PROC: 3E02305 Introduction of Other Antineoplastic into Muscle, Percutaneous Approach (ICD-10-PCS; principal; 2019-06-25)
PROC: 3E033GC Introduction of Other Therapeutic Substance into Peripheral Vein, Percutaneous Approach (ICD-10-PCS; 2019-06-25)
DX: Z51.11 Encounter for antineoplastic chemotherapy (principal); C50.412 Malignant neoplasm of upper-outer quadrant of left female breast; C79.51 Secondary malignant neoplasm of bone; E61.1 Iron deficiency; I10 Essential (primary) hypertension; Z17.0 Estrogen receptor positive status [ER+]
CPT/HCPCS: 36415; 80053; 82378; 82728; 83036; 83540; 83550; 83735; 85025; 86300; 96365; 96402; J3489; J9395

== ENCOUNTER 2019-10-17 07:23 | Day surgery (SDC) | payer OTHER, MEDICARE ==
[2019-10-17] MEDS ORDERED: FULVESTRANT 250 MG/5 ML SYRINGE IM ONE (10:00)
[2019-10-17 10:26] LABS: EOS % 2.8 % (0-4.5); HEMATOCRIT 29.3 % (32.4-45.2); HEMOGLOBIN 9.9 GM/dL (10.7-15.3); LYMPH % 28.9 % (8-40); MCH 33.7 pg (25.7-33.7); MCHC 33.9 g/dl (32.0-36.0); MEAN CELL VOLUME 99.4 fl (80-96); MONO % 8.4 % (3.8-10.2); NEUT % 58.9 % (42.8-82.8); PLATELET COUNT 200 K/MM3 (134-434); RBC 2.95 M/mm3 (3.60-5.2); RDW 19.6 % (11.6-15.6); WHITE BLOOD COUNT 3.3 K/mm3 (4.0-10.0)
[2019-10-17 11:00] LABS: IRON SERUM 89 ug/dL (50-175); TOTAL IRON BINDING CAPACITY 398 ug/dL (250-450)
[2019-10-17 11:03] LABS: ALBUMIN 3.6 g/dl (3.4-5.0); BILIRUBIN,DIRECT 0.1 mg/dL (0.0-0.2); BILIRUBIN,TOTAL 0.2 mg/dL (0.2-1); BLOOD UREA NITROGEN 16.1 mg/dL (7-18); CALCIUM 8.8 mg/dL (8.5-10.1); CREATININE 1.4 mg/dL (0.55-1.3); MAGNESIUM 2.3 mg/dL (1.8-2.4); POTASSIUM 4.4 mmol/L (3.5-5.1); TOT PROT 7.4 g/dl (6.4-8.2)
[2019-10-17] MEDS: ZOLEDRONIC ACID 3 MG in SODIUM CHLORIDE 100 ML IVPB ONE ×2 (11:11→11:17)
[2019-10-17 14:09] VITALS: BP 147/71; PULSE 92; TEMP 98.3
== END 2019-10-17 11:35 | disposition home or self-care (01) ==
LOC: JONCCHEMO 07:23
PROVIDERS: ATTEND Internal Medicine Hematology & Oncology
DX: Z51.11 Encounter for antineoplastic chemotherapy (principal); C50.412 Malignant neoplasm of upper-outer quadrant of left female breast; C79.51 Secondary malignant neoplasm of bone; C78.01 Secondary malignant neoplasm of right lung
CPT/HCPCS: 36415; 80048; 80076; 82378; 82728; 83540; 83550; 83735; 85025; 86300; 96402; J3489; J9395

== ENCOUNTER 2019-11-12 07:08 | Day surgery (SDC) | payer OTHER, MEDICARE ==
[2019-11-12] MEDS ORDERED: FULVESTRANT 250 MG/5 ML SYRINGE IM ONE (10:00)
[2019-11-12] MEDS ORDERED: ZOLEDRONIC ACID 3 MG in SODIUM CHLORIDE 100 ML IVPB ONE (10:00)
[2019-11-12 11:01] LABS: BASO % 1.7 % (0-2.0); EOS % 2.4 % (0-4.5); LYMPH % 19.4 % (8-40); MCH 34.6 pg (25.7-33.7); MCHC 33.4 g/dl (32.0-36.0); MEAN CELL VOLUME 103.6 fl (80-96); MEAN PLT VOLUME 8.2 fl (7.5-11.1); MONO % 6.6 % (3.8-10.2); NEUT % 69.9 % (42.8-82.8); PLATELET COUNT 204 K/MM3 (134-434); RDW 17.6 % (11.6-15.6); WHITE BLOOD COUNT 4.4 K/mm3 (4.0-10.0)
[2019-11-12 11:30] LABS: IRON SERUM 104 ug/dL (50-175)
[2019-11-12 11:35] LABS: ALBUMIN 3.5 g/dl (3.4-5.0); ALK PHOS 64 U/L (45-117); ANION GAP 7 MMOL/L (8-16); BILIRUBIN,DIRECT < 0.1 mg/dL (0.0-0.2); BILIRUBIN,TOTAL 0.4 mg/dL (0.2-1); BLOOD UREA NITROGEN 18.5 mg/dL (7-18); CHLORIDE 102 mmol/L (98-107); CO2 24 mmol/L (21-32); CREATININE 1.4 mg/dL (0.55-1.3); GLUCOSE,RANDOM 130 mg/dL (74-106); MAGNESIUM 2.2 mg/dL (1.8-2.4); SGOT/AST 66 U/L (15-37); SGPT/ALT 26 U/L (13-61); SODIUM 133 mmol/L (136-145); TOT PROT 7.9 g/dl (6.4-8.2)
[2019-11-12] MEDS ORDERED: SODIUM CHLORIDE 0.45% 1,000 ML IV SCH (12:15)
[2019-11-12 13:23] LABS: BLOOD UREA NITROGEN 16.8 mg/dL (7-18); CALCIUM 9.4 mg/dL (8.5-10.1); CREATININE 1.2 mg/dL (0.55-1.3); POTASSIUM 4.2 mmol/L (3.5-5.1)
[2019-11-12 13:33] LABS: ALBUMIN 3.6 g/dl (3.4-5.0); BILIRUBIN,TOTAL 0.3 mg/dL (0.2-1); CREATININE 1.3 mg/dL (0.55-1.3); POTASSIUM 4.2 mmol/L (3.5-5.1); TOT PROT 7.4 g/dl (6.4-8.2)
[2019-11-12 16:29] VITALS: TEMP 98.3
[2019-11-12 16:46] VITALS: BP 163/65; PULSE 73
== END 2019-11-12 13:35 | disposition home or self-care (01) ==
LOC: JONCCHEMO 07:08
PROVIDERS: ATTEND Internal Medicine Hematology & Oncology
PROC: 3E02305 Introduction of Other Antineoplastic into Muscle, Percutaneous Approach (ICD-10-PCS; principal; 2019-11-12)
PROC: 3E02305 Introduction of Other Antineoplastic into Muscle, Percutaneous Approach (ICD-10-PCS; 2019-11-12)
PROC: 3E0337Z Introduction of Electrolytic and Water Balance Substance into Peripheral Vein, Percutaneous Approach (ICD-10-PCS; 2019-11-12)
DX: Z51.11 Encounter for antineoplastic chemotherapy (principal); C50.412 Malignant neoplasm of upper-outer quadrant of left female breast; C79.51 Secondary malignant neoplasm of bone; C78.01 Secondary malignant neoplasm of right lung
CPT/HCPCS: 36415; 80048; 80053; 80076; 82378; 82728; 83540; 83550; 83735; 85025; 86300; 96360; 96402; J9395

== ENCOUNTER 2019-12-10 07:17 | Day surgery (SDC) | payer OTHER, MEDICARE ==
[2019-12-10] MEDS ORDERED: FULVESTRANT 250 MG/5 ML SYRINGE IM ONE (10:00)
[2019-12-10 13:12] LABS: BASO % 1.3 % (0-2.0); EOS % 1.6 % (0-4.5); HEMATOCRIT 30.3 % (32.4-45.2); HEMOGLOBIN 10.1 GM/dL (10.7-15.3); MCHC 33.4 g/dl (32.0-36.0); MEAN CELL VOLUME 107.9 fl (80-96); MEAN PLT VOLUME 8.6 fl (7.5-11.1); MONO % 7.2 % (3.8-10.2); NEUT % 62.9 % (42.8-82.8); RDW 14.8 % (11.6-15.6); WHITE BLOOD COUNT 2.9 K/mm3 (4.0-10.0)
[2019-12-10 13:36] LABS: ALBUMIN 3.6 g/dl (3.4-5.0); BILIRUBIN,DIRECT 0.1 mg/dL (0.0-0.2); BILIRUBIN,TOTAL 0.3 mg/dL (0.2-1); CALCIUM 8.8 mg/dL (8.5-10.1); CREATININE 1.1 mg/dL (0.55-1.3); MAGNESIUM 2.3 mg/dL (1.8-2.4); POTASSIUM 4.6 mmol/L (3.5-5.1); TOT PROT 7.5 g/dl (6.4-8.2)
[2019-12-10 13:56] LABS: ANISOCYTOSIS 0; MACROCYTOSIS 0; PLATELET ESTIMATE DECREASED
[2019-12-10 16:35] VITALS: BP 126/55; PULSE 80; TEMP 97.7
== END 2019-12-10 12:05 | disposition home or self-care (01) ==
LOC: JONCCHEMO 07:17
PROVIDERS: ATTEND Internal Medicine Hematology & Oncology
DX: C50.412 Malignant neoplasm of upper-outer quadrant of left female breast (principal); C79.51 Secondary malignant neoplasm of bone; C78.01 Secondary malignant neoplasm of right lung
CPT/HCPCS: 36415; 80048; 80076; 82378; 82607; 83036; 83540; 83550; 83735; 85025; 86300; 96402; J9395

== ENCOUNTER 2020-01-07 06:49 | Day surgery (SDC) | payer OTHER, MEDICARE ==
--- OUTSIDE RECORDS SUMMARY | 2020-01-07 06:53 | XMS ---
:1940 Author Organization [facility] Support Name Relationship Address Phone RE, RETIRED Unavailable Unavailable Unavailable RETIRED Unavailable Unavailable Unavailable MARELY JARAMILLO [address] [facility] [place] [address] RE Unavailable Unavailable Unavailable ALIC[place] [address] Re-disclosure Warning The records that you are about to access may contain information from federally- assisted alcohol or drug abuse programs. If such information is present, then the following federally mandated warning applies: This information has been disclosed to you from records protected by federal confidentiality rules (42 CFR part 2). The federal rules prohibit you from making any further disclosure of this information unless further disclosure is expressly permitted by the written consent of the person to whom it pertains or as otherwise permitted by 42 CFR part 2. A general authorization for the release of medical or other information is NOT sufficient for this purpose. The Federal rules restrict any use of the information to criminally investigate or prosecute any alcohol or drug abuse patient.The records that you are about to access may contain highly sensitive health information, the redisclosure of which is protected by Article 27-F of the [facility] Public Health law. If you continue you may haveaccess to information: Regarding HIV / AIDS; Provided by facilities licensed or operated by the [facility] Office of Mental Health; or Provided by the [facility] Office for People With Developmental Disabilities. If such information is present, then the following [facility] mandated warning applies: This information has been disclosed to you from confidential records which are protected by state law. State law prohibits you from making any further disclosure of this information without the specific written consent of the person to whom it pertains, or as otherwise permitted by law. Any unauthorized further disclosure in violation of state law may result in a fine or residential sentence or both. A general authorization for the release of medical or other information is NOT sufficient authorization for further disclosure. Encounters Encounter Providers Location Date Indications Data Source(s ) Outpatient 07/05/2019 BREAST CA YES [facility] 10:18:00 AM EDT [facility]ET[facility] BREAST [facility] YES DIABETIC 134LBS Outpatient 07/20/2018 08:36:00 AM BREAST CA YES DIABETIC [facility] EDT 128LBS BREAST CA YES DIABETIC 128LBS Insurance Providers Payer name Policy type Policy ID Covered Covered republican's Policy P beverly / Coverage republican ID relationship to Gaming Inf ormation type gaming [facility] [id number] SP [id number] [employer] MEDICARE [id number] SP [id number] P01 [facility] [id number] PT [id number] [employer] MEDICARE [id number] PT [id number] P01 [facility] [id number] SP [id number] [employer] MEDICARE [id number] SP [id number] P01 [facility] [id number] SP [id number] CARE OPTIONS STATE INS [id number] SP [id number] [facility] MEDICARE [id number] SP [id number] P01 [facility] [id number] SP [id number] [employer] MEDICARE [id number] SP [id number] A [facility]LY [facility] INS [id number] SP [id number] [facility] [id number] SP [id number] [facility] [id number] SP [id number] [employer] Problems, Conditions, and Diagnoses Code Display Name Description Problem Type Effective Dates Data Source(s) 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:18:00 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
[2020-01-07 11:53] LABS: BASO % 2.5 % (0-2.0); EOS % 1.8 % (0-4.5); HEMATOCRIT 30.6 % (32.4-45.2); HEMOGLOBIN 10.4 GM/dL (10.7-15.3); LYMPH % 26.4 % (8-40); MCH 36.9 pg (25.7-33.7); MCHC 34.1 g/dl (32.0-36.0); MEAN CELL VOLUME 108.2 fl (80-96); MEAN PLT VOLUME 8.2 fl (7.5-11.1); NEUT % 64.3 % (42.8-82.8); PLATELET COUNT 182 K/MM3 (134-434); RBC 2.82 M/mm3 (3.60-5.2); RDW 14.4 % (11.6-15.6); WHITE BLOOD COUNT 3.3 K/mm3 (4.0-10.0)
[2020-01-07 12:20] LABS: ALBUMIN 3.6 g/dl (3.4-5.0); BILIRUBIN,DIRECT 0.1 mg/dL (0.0-0.2); BILIRUBIN,TOTAL 0.3 mg/dL (0.2-1); BLOOD UREA NITROGEN 13.6 mg/dL (7-18); CALCIUM 8.5 mg/dL (8.5-10.1); CREATININE 1.1 mg/dL (0.55-1.3); POTASSIUM 4.2 mmol/L (3.5-5.1); TOT PROT 7.7 g/dl (6.4-8.2)
[2020-01-07] MEDS ORDERED: FULVESTRANT 250 MG/5 ML SYRINGE IM ONE (12:30)
[2020-01-07 12:39] LABS: ANISOCYTOSIS 2+; MACROCYTOSIS 2+; PLATELET ESTIMATE NORMAL
[2020-01-07 16:56] VITALS: BP 124/64; PULSE 93; TEMP 97.9
== END 2020-01-07 12:45 | disposition home or self-care (01) ==
LOC: JONCCHEMO 06:49
PROVIDERS: ATTEND Internal Medicine Hematology & Oncology
DX: Z51.11 Encounter for antineoplastic chemotherapy (principal); C50.412 Malignant neoplasm of upper-outer quadrant of left female breast; C78.01 Secondary malignant neoplasm of right lung; C79.51 Secondary malignant neoplasm of bone; I10 Essential (primary) hypertension; E78.00 Pure hypercholesterolemia, unspecified; K21.9 Gastro-esophageal reflux disease without esophagitis
CPT/HCPCS: 36415; 80048; 80076; 82378; 82728; 83540; 83550; 83735; 85025; 86300; 96402; J9395

== ENCOUNTER 2020-04-01 10:38 | Inpatient (IN) | payer OTHER, MEDICARE ==
[2020-04-01 11:01] VITALS: BMI 26.2
[2020-04-01 13:42] LABS: BASO % 0.7 % (0-2.0); EOS % 1.2 % (0-4.5); HEMATOCRIT 32.7 % (32.4-45.2); HEMOGLOBIN 11.1 GM/dL (10.7-15.3); LYMPH % 25.5 % (8-40); MCH 37.4 pg (25.7-33.7); MCHC 33.8 g/dl (32.0-36.0); MEAN CELL VOLUME 110.5 fl (80-96); MEAN PLT VOLUME 7.8 fl (7.5-11.1); MONO % 5.4 % (3.8-10.2); NEUT % 67.2 % (42.8-82.8); PLATELET COUNT 198 K/MM3 (134-434); RBC 2.96 M/mm3 (3.60-5.2); RDW 16.2 % (11.6-15.6); WHITE BLOOD COUNT 3.6 K/mm3 (4.0-10.0)
[2020-04-01] MEDS ORDERED: KETOROLAC TROMETHAMINE 15 MG/ML VIAL ONE (14:06)
[2020-04-01 14:09] LABS: CALCIUM 8.9 mg/dL (8.5-10.1)
[2020-04-01 14:10] LABS: ALBUMIN 3.7 g/dl (3.4-5.0); BLOOD UREA NITROGEN 20.5 mg/dL (7-18)
[2020-04-01 14:13] LABS: CREATININE 1.1 mg/dL (0.55-1.3)
[2020-04-01 14:14] LABS: BILIRUBIN,TOTAL 0.4 mg/dL (0.2-1)
[2020-04-01 14:15] LABS: TOT PROT 7.4 g/dl (6.4-8.2)
[2020-04-01 14:36] LABS: ANISOCYTOSIS 2+; MACROCYTOSIS 2+; OVALOCYTE 1+; PLATELET ESTIMATE NORMAL; TEAR DROP CELLS 1+
[2020-04-01] MEDS ORDERED: KETOROLAC TROMETHAMINE 30 MG/1 ML VIAL IM ONE (14:40)
[2020-04-01] MEDS ORDERED: LIDOCAINE 5% TOPICAL PATCH TP ONE (15:43)
[2020-04-01] MEDS ORDERED: LIDOCAINE 5% TOPICAL PATCH ONE (16:13)
[2020-04-01] MEDS ORDERED: traMADol HCL 50 MG TABLET PO PRN (16:16)
[2020-04-01] MEDS ORDERED: ACETAMINOPHEN 325 MG TABLET (FP) PO PRN (16:16)
[2020-04-01] MEDS: PANTOPRAZOLE 40 MG TABLET PO SCH (16:41)
[2020-04-01] MEDS ORDERED: FLUCONAZOLE 100 MG TABLET (UD) ONE (17:39)
[2020-04-01] MEDS: FLUCONAZOLE 100 MG TABLET (UD) PO SCH (17:41)
[2020-04-01] MEDS: LOSARTAN POTASSIUM 25 MG TABLET PO SCH (22:12)
[2020-04-01] MEDS: predniSONE 20 MG TABLET (UD) PO SCH (22:12)
[2020-04-01] MEDS: INSULIN SLIDING SCALE (NOVOLOG) 1 VIAL SQ SCH (22:13)
[2020-04-01] MEDS: TERAZOSIN HCL 1 MG CAPSULE PO SCH (22:20)
[2020-04-02] MEDS ORDERED: LIDOCAINE PATCH REMOVAL MC ONE ×2 (04:00→17:00)
[2020-04-02] MEDS ORDERED: LIDOCAINE 5% TOPICAL PATCH TP ONE ×2 (04:49→20:45)
[2020-04-02] MEDS: LEVOTHYROXINE NA 25 MCG TABLET (FP) PO SCH (05:59)
[2020-04-02] MEDS: INSULIN SLIDING SCALE (NOVOLOG) 1 VIAL SQ SCH ×4 (06:05→21:51)
[2020-04-02 08:41] LABS: BASO % 0.2 % (0-2.0); EOS % 0.1 % (0-4.5); HEMATOCRIT 29.9 % (32.4-45.2); HEMOGLOBIN 10.2 GM/dL (10.7-15.3); LYMPH % 17.6 % (8-40); MCHC 34.1 g/dl (32.0-36.0); MEAN CELL VOLUME 111.6 fl (80-96); MEAN PLT VOLUME 8.2 fl (7.5-11.1); MONO % 5.4 % (3.8-10.2); NEUT % 76.7 % (42.8-82.8); PLATELET COUNT 178 K/MM3 (134-434); RBC 2.68 M/mm3 (3.60-5.2); RDW 15.8 % (11.6-15.6); WHITE BLOOD COUNT 2.8 K/mm3 (4.0-10.0)
[2020-04-02 08:59] LABS: POTASSIUM 4.7 mmol/L (3.5-5.1)
[2020-04-02 09:02] LABS: ALBUMIN 3.2 g/dl (3.4-5.0); BLOOD UREA NITROGEN 22.2 mg/dL (7-18)
[2020-04-02 09:04] LABS: CALCIUM 8.2 mg/dL (8.5-10.1); MAGNESIUM 2.4 mg/dL (1.8-2.4)
[2020-04-02 09:05] LABS: CREATININE 1.1 mg/dL (0.55-1.3); PHOSPHOROUS 4.2 mg/dL (2.5-4.9)
[2020-04-02 09:06] LABS: BILIRUBIN,TOTAL 0.4 mg/dL (0.2-1); TOT PROT 6.5 g/dl (6.4-8.2)
[2020-04-02] MEDS ORDERED: IBRANCE 100 MG PO SCH (10:00)
[2020-04-02] MEDS ORDERED: PT OWN MED DRAWER 7, Y5N ONE ×5 (10:35→21:03)
[2020-04-02] MEDS: ENOXAPARIN NA (PORCINE) 40 MG/0.4 ML DISP.SYRIN SQ SCH (10:59)
[2020-04-02] MEDS: ASPIRIN COATED 81 MG TABLET.EC PO SCH (11:00)
[2020-04-02] MEDS: LORATADINE 10 MG TABLET PO SCH (11:00)
[2020-04-02] MEDS: MULTIVITAMINS (DAILY MVI) TABLET (FP) PO SCH (11:00)
[2020-04-02] MEDS: LOSARTAN POTASSIUM 25 MG TABLET PO SCH ×2 (11:00→21:47)
[2020-04-02] MEDS: PANTOPRAZOLE 40 MG TABLET PO SCH (11:00)
[2020-04-02] MEDS: predniSONE 20 MG TABLET (UD) PO SCH ×2 (11:00→21:47)
[2020-04-02] MEDS: FLUCONAZOLE 100 MG TABLET (UD) PO SCH (12:03)
[2020-04-02] MEDS: metFORMIN HCL 500 MG TABLET (FP) PO SCH (16:50)
[2020-04-02] MEDS: LIDOCAINE 5% TOPICAL PATCH TP SCH (21:51)
[2020-04-02] MEDS ORDERED: LIDOCAINE PATCH REMOVAL MC SCH ×2 (22:00)
[2020-04-02] MEDS: TERAZOSIN HCL 1 MG CAPSULE PO SCH (22:30)
[2020-04-03] MEDS ORDERED: KETOROLAC TROMETHAMINE 15 MG/ML VIAL IVPUSH ONE (03:58)
[2020-04-03] MEDS: metFORMIN HCL 500 MG TABLET (FP) PO SCH (06:08)
[2020-04-03] MEDS: LEVOTHYROXINE NA 25 MCG TABLET (FP) PO SCH (06:08)
[2020-04-03] MEDS ORDERED: INSULIN (NOVOLOG) ASPART 100 UNITS/ML 10ML VIAL ONE (06:27)
[2020-04-03] MEDS: INSULIN SLIDING SCALE (NOVOLOG) 1 VIAL SQ SCH (06:28)
[2020-04-03] MEDS: ENOXAPARIN NA (PORCINE) 40 MG/0.4 ML DISP.SYRIN SQ SCH ×2 (09:24→09:35)
[2020-04-03] MEDS: LORATADINE 10 MG TABLET PO SCH (09:24)
[2020-04-03] MEDS: MULTIVITAMINS (DAILY MVI) TABLET (FP) PO SCH (09:24)
[2020-04-03] MEDS: LOSARTAN POTASSIUM 25 MG TABLET PO SCH (09:24)
[2020-04-03] MEDS: PANTOPRAZOLE 40 MG TABLET PO SCH (09:24)
[2020-04-03] MEDS: ASPIRIN COATED 81 MG TABLET.EC PO SCH ×2 (09:25→09:35)
[2020-04-03] MEDS: predniSONE 20 MG TABLET (UD) PO SCH (09:25)
[2020-04-03] MEDS: FLUCONAZOLE 100 MG TABLET (UD) PO SCH (09:26)
[2020-04-03] MEDS ORDERED: PT OWN MED DRAWER 7, Y5N ONE (09:26)
[2020-04-03] MEDS: LIDOCAINE 5% TOPICAL PATCH TP SCH (09:35)
[2020-04-03 10:51] VITALS: BP 140/70; PULSE 72; TEMP 98
[2020-04-03] MEDS ORDERED: predniSONE 10 MG TABLET (UD) PO SCH (22:00)
== END 2020-04-03 12:00 | disposition home health service (06) | DRG 552 ==
LOC: JER 10:38 → JERBED 16:05 → J6S 20:43
PROVIDERS: ADMIT Internal Medicine; ATTEND Internal Medicine
DX: M47.27 Other spondylosis with radiculopathy, lumbosacral region (principal); B37.0 Candidal stomatitis; C78.00 Secondary malignant neoplasm of unspecified lung; C79.51 Secondary malignant neoplasm of bone; E11.9 Type 2 diabetes mellitus without complications; M48.07 Spinal stenosis, lumbosacral region; I10 Essential (primary) hypertension; E78.5 Hyperlipidemia, unspecified; Z85.3 Personal history of malignant neoplasm of breast
CPT/HCPCS: 36415; 71046-TC-FY; 72148-TC; 72170-TC-FY; 73552-TC-LT-FY; 73590-TC-LT-FY; 80053; 82962; 83735; 84100; 85025; 93005; 93010; 97116-GP; 97162-GP; 99285-25; C9803; U0003

== ENCOUNTER 2020-04-07 07:20 | Day surgery (SDC) | payer OTHER, MEDICARE ==
[2020-04-07] MEDS ORDERED: FULVESTRANT 250 MG/5 ML SYRINGE IM ONE (10:00)
[2020-04-07 12:18] LABS: BASO % 0.5 % (0-2.0); EOS % 0.9 % (0-4.5); HEMATOCRIT 32.7 % (32.4-45.2); HEMOGLOBIN 10.9 GM/dL (10.7-15.3); LYMPH % 29.3 % (8-40); MCH 37.6 pg (25.7-33.7); MCHC 33.4 g/dl (32.0-36.0); MEAN CELL VOLUME 112.4 fl (80-96); MEAN PLT VOLUME 7.6 fl (7.5-11.1); MONO % 8.8 % (3.8-10.2); NEUT % 60.5 % (42.8-82.8); PLATELET COUNT 183 K/MM3 (134-434); RBC 2.91 M/mm3 (3.60-5.2); RDW 16.5 % (11.6-15.6); WHITE BLOOD COUNT 4.6 K/mm3 (4.0-10.0)
[2020-04-07 12:44] LABS: POTASSIUM 3.7 mmol/L (3.5-5.1)
[2020-04-07 12:48] LABS: ALBUMIN 3.4 g/dl (3.4-5.0); BLOOD UREA NITROGEN 23.6 mg/dL (7-18); CALCIUM 9.1 mg/dL (8.5-10.1)
[2020-04-07 12:51] LABS: BILIRUBIN,DIRECT 0.1 mg/dL (0.0-0.2); CREATININE 1.1 mg/dL (0.55-1.3)
[2020-04-07 12:53] LABS: BILIRUBIN,TOTAL 0.6 mg/dL (0.2-1); TOT PROT 6.9 g/dl (6.4-8.2)
[2020-04-07 14:20] LABS: ANISOCYTOSIS 1+; MACROCYTOSIS 1+; PLATELET ESTIMATE NORMAL
[2020-04-07 16:14] VITALS: BP 135/53; PULSE 83; TEMP 98
== END 2020-04-07 12:10 | disposition home or self-care (01) ==
LOC: JONCCHEMO 07:20
PROVIDERS: ATTEND Internal Medicine Hematology & Oncology
DX: Z51.11 Encounter for antineoplastic chemotherapy (principal); C50.412 Malignant neoplasm of upper-outer quadrant of left female breast; C78.01 Secondary malignant neoplasm of right lung; C79.51 Secondary malignant neoplasm of bone
CPT/HCPCS: 36415; 80048; 80076; 82378; 83735; 85025; 86300; 96402; J9395

== ENCOUNTER 2020-04-14 04:23 | Day surgery (SDC) | payer OTHER, MEDICARE ==
[2020-04-13 17:29] VITALS: BMI 29.3
[~2020-04-14 04:23] MED LIST changes: +BUPIVACAINE HCL/PF 0.5% (5MG/ML) 10 ML VIAL IJ ONE; +BUPIVACAINE HCL/PF 0.75% 10 ML VIAL NR ONE; +DEXAMETHASONE SOD PHOSPHATE 10 MG/1 ML VIAL IVPUSH ONE; -IBUPROFEN 400 MG TABLET (FP) PO PRN; +IOHEXOL 180 MG/1 ML ML IJ ONE; +LIDOCAINE HCL 1%, 10 MG/ML (20ML VIAL) ID ONE; +LIDOCAINE HCL/PF 2% SDV 5ML VIAL SQ ONE
[2020-04-14] MEDS ORDERED: LIDOCAINE HCL/PF 1% SDV 5ML VIAL ONE (07:16)
[2020-04-14] MEDS ORDERED: BUPIVACAINE HCL/PF 0.75% 10 ML VIAL ONE (07:17)
[2020-04-14] MEDS ORDERED: LIDOCAINE HCL/PF 2% SDV 5ML VIAL ONE (07:20)
[2020-04-14] MEDS ORDERED: DEXAMETHASONE SOD PHOSPHATE/PF 10 MG/ML SDV ONE (07:55)
[2020-04-14] MEDS ORDERED: IOHEXOL 180 MG/1 ML ML IJ ONE (08:15)
[2020-04-14] MEDS ORDERED: DEXAMETHASONE SOD PHOSPHATE 10 MG/1 ML VIAL IVPUSH ONE (08:15)
[2020-04-14] MEDS ORDERED: LIDOCAINE HCL/PF 2% SDV 5ML VIAL SQ ONE (08:15)
[2020-04-14 08:53] VITALS: TEMP 97.8
[2020-04-14 10:02] VITALS: BP 140/60; PULSE 80
== END 2020-04-14 09:40 | disposition home or self-care (01) ==
LOC: JASU-SURG 04:23
PROVIDERS: ATTEND Pain Medicine Pain Medicine
PROC: 3E0R3BZ Introduction of Anesthetic Agent into Spinal Canal, Percutaneous Approach (ICD-10-PCS; 2020-04-14)
PROC: 3E0R33Z Introduction of Anti-inflammatory into Spinal Canal, Percutaneous Approach (ICD-10-PCS; 2020-04-14)
PROC: B01BYZZ Fluoroscopy of Spinal Cord using Other Contrast (ICD-10-PCS; principal; 2020-04-14 07:30)
DX: M54.16 Radiculopathy, lumbar region (principal)
CPT/HCPCS: 76000-TC-FY; J1100

== ENCOUNTER 2020-04-24 04:12 | Day surgery (SDC) | payer OTHER, MEDICARE ==
[2020-04-22 10:11] VITALS: BMI 29.3
[2020-04-24] MEDS ORDERED: BUPIVACAINE HCL/PF 0.75% 10 ML VIAL ONE (07:11)
[2020-04-24] MEDS ORDERED: DEXAMETHASONE SOD PHOSPHATE/PF 10 MG/ML SDV ONE (07:11)
[2020-04-24] MEDS ORDERED: LIDOCAINE HCL/PF 1% SDV 5ML VIAL ONE (07:11)
[2020-04-24] MEDS ORDERED: SODIUM CHLORIDE 0.9% P/F 10 ML VIAL IJ ONE (07:20)
[2020-04-24] MEDS ORDERED: IOHEXOL 180 MG/1 ML ML IJ ONE (11:48)
[2020-04-24] MEDS ORDERED: DEXAMETHASONE SOD PHOSPHATE 10 MG/1 ML VIAL IVPUSH ONE (11:48)
[2020-04-24] MEDS ORDERED: LIDOCAINE HCL 1% PRESERVATIVE FREE - 30ML VIAL IJ ONE (11:48)
[2020-04-24 13:16] VITALS: BP 132/59; PULSE 90; TEMP 97.9
== END 2020-04-24 14:02 | disposition home or self-care (01) ==
LOC: JASU-SURG 04:12
PROVIDERS: ATTEND Pain Medicine Pain Medicine
PROC: 3E0R33Z Introduction of Anti-inflammatory into Spinal Canal, Percutaneous Approach (ICD-10-PCS; 2020-04-24)
PROC: 3E0R3BZ Introduction of Anesthetic Agent into Spinal Canal, Percutaneous Approach (ICD-10-PCS; principal; 2020-04-24 12:00)
DX: M54.16 Radiculopathy, lumbar region (principal)
CPT/HCPCS: 76000-TC-FY; J1100

== ENCOUNTER 2020-05-08 10:45 | Day surgery (SDC) | payer OTHER, MEDICARE ==
[2020-05-08] MEDS ORDERED: FULVESTRANT 250 MG/5 ML SYRINGE IM ONE (12:00)
[2020-05-08] MEDS ORDERED: DENOSUMAB 120 MG/1.7 ML VIAL SQ ONE (12:00)
[2020-05-08 12:24] LABS: EOS % 0.6 % (0-4.5); HEMATOCRIT 30.9 % (32.4-45.2); HEMOGLOBIN 10.7 GM/dL (10.7-15.3); LYMPH % 21.6 % (8-40); MCH 38.8 pg (25.7-33.7); MCHC 34.5 g/dl (32.0-36.0); MEAN CELL VOLUME 112.6 fl (80-96); MEAN PLT VOLUME 7.2 fl (7.5-11.1); MONO % 8.4 % (3.8-10.2); NEUT % 67.4 % (42.8-82.8); PLATELET COUNT 201 K/MM3 (134-434); RBC 2.74 M/mm3 (3.60-5.2); RDW 16.2 % (11.6-15.6); WHITE BLOOD COUNT 3.5 K/mm3 (4.0-10.0)
[2020-05-08 12:44] LABS: POTASSIUM 4.2 mmol/L (3.5-5.1)
[2020-05-08 12:46] LABS: CALCIUM 8.4 mg/dL (8.5-10.1)
[2020-05-08 12:47] LABS: ALBUMIN 3.1 g/dl (3.4-5.0); BLOOD UREA NITROGEN 13.6 mg/dL (7-18)
[2020-05-08 12:52] LABS: BILIRUBIN,TOTAL 0.4 mg/dL (0.2-1); TOT PROT 6.2 g/dl (6.4-8.2)
[2020-05-08 14:31] LABS: ANISOCYTOSIS 1+; MACROCYTOSIS 1+; OVALOCYTE 1+; PLATELET ESTIMATE NORMAL; TEAR DROP CELLS 1+
[2020-05-08 17:38] VITALS: BP 142/35; PULSE 94; TEMP 98.5
== END 2020-05-08 12:50 | disposition home or self-care (01) ==
LOC: JONCCHEMO 10:45
PROVIDERS: ATTEND Internal Medicine Hematology & Oncology
PROC: 3E02305 Introduction of Other Antineoplastic into Muscle, Percutaneous Approach (ICD-10-PCS; principal; 2020-05-08)
PROC: 3E013GC Introduction of Other Therapeutic Substance into Subcutaneous Tissue, Percutaneous Approach (ICD-10-PCS; 2020-05-08)
DX: Z51.11 Encounter for antineoplastic chemotherapy (principal); C50.412 Malignant neoplasm of upper-outer quadrant of left female breast; C78.01 Secondary malignant neoplasm of right lung; C79.51 Secondary malignant neoplasm of bone
CPT/HCPCS: 36415; 80053; 82378; 83735; 85025; 86300; 96372; 96402; J0897; J9395

== ENCOUNTER 2020-06-09 07:44 | Day surgery (SDC) | payer OTHER, MEDICARE ==
[2020-06-09] MEDS ORDERED: DENOSUMAB 120 MG/1.7 ML VIAL SQ ONE (10:00)
[2020-06-09] MEDS ORDERED: FULVESTRANT 250 MG/5 ML SYRINGE IM ONE (10:00)
[2020-06-09 14:25] LABS: BASO % 3.1 % (0-2.0); EOS % 2.1 % (0-4.5); HEMATOCRIT 31.5 % (32.4-45.2); LYMPH % 24.3 % (8-40); MCH 38.3 pg (25.7-33.7); MCHC 34.8 g/dl (32.0-36.0); MEAN PLT VOLUME 7.1 fl (7.5-11.1); MONO % 6.8 % (3.8-10.2); NEUT % 63.7 % (42.8-82.8); PLATELET COUNT 408 K/MM3 (134-434); RBC 2.87 M/mm3 (3.60-5.2); RDW 15.2 % (11.6-15.6); WHITE BLOOD COUNT 3.8 K/mm3 (4.0-10.0)
[2020-06-09 14:41] LABS: ALBUMIN 3.4 g/dl (3.4-5.0); BLOOD UREA NITROGEN 12.1 mg/dL (7-18)
[2020-06-09 14:45] LABS: BILIRUBIN,DIRECT 0.2 mg/dL (0.0-0.2); CREATININE 0.9 mg/dL (0.55-1.3)
[2020-06-09 14:46] LABS: BILIRUBIN,TOTAL 0.3 mg/dL (0.2-1)
[2020-06-09 15:43] LABS: ANISOCYTOSIS 1+; MACROCYTOSIS 2+; PLATELET ESTIMATE NORMAL
[2020-06-09 16:55] VITALS: BP 146/56; PULSE 96; TEMP 98.1
== END 2020-06-09 14:35 | disposition home or self-care (01) ==
LOC: JONCCHEMO 07:44
PROVIDERS: ATTEND Internal Medicine Hematology & Oncology
PROC: 3E02305 Introduction of Other Antineoplastic into Muscle, Percutaneous Approach (ICD-10-PCS; principal; 2020-06-09)
PROC: 3E013GC Introduction of Other Therapeutic Substance into Subcutaneous Tissue, Percutaneous Approach (ICD-10-PCS; 2020-06-09)
DX: Z51.11 Encounter for antineoplastic chemotherapy (principal); C50.412 Malignant neoplasm of upper-outer quadrant of left female breast; C78.01 Secondary malignant neoplasm of right lung; C79.51 Secondary malignant neoplasm of bone
CPT/HCPCS: 36415; 80048; 80076; 83735; 85025; 96372; 96402; J0897; J9395

== ENCOUNTER 2020-06-12 06:28 | Day surgery (SDC) | payer OTHER, MEDICARE ==
[2020-06-11 14:11] VITALS: BMI 30.6
[2020-06-12] MEDS ORDERED: LIDOCAINE HCL 1% PRESERVATIVE FREE - 30ML VIAL EP ONE (12:39)
[2020-06-12] MEDS ORDERED: DEXAMETHASONE SOD PHOSPHATE 10 MG/1 ML VIAL IVPUSH ONE (12:39)
[2020-06-12] MEDS ORDERED: IOHEXOL 180 MG/1 ML ML IJ ONE (12:39)
[2020-06-12 13:31] VITALS: BP 148/62; PULSE 96; TEMP 98.9
[2020-06-12 16:38] LABS: POTASSIUM 4.4 mmol/L (3.5-5.1)
[2020-06-12 16:44] LABS: CALCIUM 9.1 mg/dL (8.5-10.1)
[2020-06-12 16:45] LABS: BLOOD UREA NITROGEN 13.2 mg/dL (7-18)
[2020-06-12 16:48] LABS: CREATININE 0.9 mg/dL (0.55-1.3)
== END 2020-06-12 14:40 | disposition home or self-care (01) ==
LOC: JASU-SURG 06:28
PROVIDERS: ATTEND Pain Medicine Pain Medicine
PROC: 3E0R33Z Introduction of Anti-inflammatory into Spinal Canal, Percutaneous Approach (ICD-10-PCS; 2020-06-12)
PROC: B01BYZZ Fluoroscopy of Spinal Cord using Other Contrast (ICD-10-PCS; 2020-06-12)
PROC: 3E0R3BZ Introduction of Anesthetic Agent into Spinal Canal, Percutaneous Approach (ICD-10-PCS; principal; 2020-06-12 12:00)
DX: M54.16 Radiculopathy, lumbar region (principal); Z88.8 Allergy status to other drugs, medicaments and biological substances; Z88.5 Allergy status to narcotic agent
CPT/HCPCS: 36415; 76000-TC-FY; 80048; 82533; 83930; 83935; J1100

== ENCOUNTER 2020-07-07 06:48 | Day surgery (SDC) | payer OTHER, MEDICARE ==
[2020-07-07] MEDS ORDERED: FULVESTRANT 250 MG/5 ML SYRINGE IM ONE (10:00)
[2020-07-07] MEDS ORDERED: DENOSUMAB 120 MG/1.7 ML VIAL SQ ONE (10:00)
[2020-07-07 13:59] LABS: HEMATOCRIT 34.3 % (32.4-45.2); HEMOGLOBIN 11.7 GM/dL (10.7-15.3); LYMPH % 6.4 % (8-40); MCH 37.4 pg (25.7-33.7); MCHC 34.2 g/dl (32.0-36.0); MEAN CELL VOLUME 109.6 fl (80-96); MONO % 5.2 % (3.8-10.2); NEUT % 88.4 % (42.8-82.8); PLATELET COUNT 373 K/MM3 (134-434); RBC 3.13 M/mm3 (3.60-5.2); RDW 15.4 % (11.6-15.6)
[2020-07-07 14:16] LABS: POTASSIUM 4.1 mmol/L (3.5-5.1)
[2020-07-07 14:19] LABS: ALBUMIN 3.3 g/dl (3.4-5.0); BLOOD UREA NITROGEN 23.4 mg/dL (7-18); IRON SERUM 82 ug/dL (50-175); MAGNESIUM 2.4 mg/dL (1.8-2.4)
[2020-07-07 14:20] LABS: TOTAL IRON BINDING CAPACITY 376 ug/dL (250-450)
[2020-07-07 14:22] LABS: BILIRUBIN,DIRECT 0.2 mg/dL (0.0-0.2); CREATININE 1.1 mg/dL (0.55-1.3)
[2020-07-07 14:24] LABS: BILIRUBIN,TOTAL 0.6 mg/dL (0.2-1); TOT PROT 7.1 g/dl (6.4-8.2)
[2020-07-07 15:07] LABS: ANISOCYTOSIS 1+; MACROCYTOSIS 1+; OVALOCYTE 1+; PLATELET ESTIMATE NORMAL; TEAR DROP CELLS 1+
[2020-07-07 15:28] VITALS: BP 151/72; PULSE 91; TEMP 98.6
== END 2020-07-07 13:30 | disposition home or self-care (01) ==
LOC: JONCCHEMO 06:48
PROVIDERS: ATTEND Internal Medicine Hematology & Oncology
PROC: 3E02305 Introduction of Other Antineoplastic into Muscle, Percutaneous Approach (ICD-10-PCS; principal; 2020-07-07)
PROC: 3E013GC Introduction of Other Therapeutic Substance into Subcutaneous Tissue, Percutaneous Approach (ICD-10-PCS; 2020-07-07)
DX: Z51.11 Encounter for antineoplastic chemotherapy (principal); C50.412 Malignant neoplasm of upper-outer quadrant of left female breast; C78.01 Secondary malignant neoplasm of right lung; C79.51 Secondary malignant neoplasm of bone
CPT/HCPCS: 36415; 80048; 80076; 82607; 83540; 83550; 83735; 85025; 96372; 96402; J0897; J9395

== ENCOUNTER 2020-08-14 07:14 | Day surgery (SDC) | payer OTHER, MEDICARE ==
[~2020-08-14 07:14] MED LIST changes: -BUPIVACAINE HCL/PF 0.5% (5MG/ML) 10 ML VIAL IJ ONE; -BUPIVACAINE HCL/PF 0.75% 10 ML VIAL NR ONE; +DENOSUMAB 120 MG/1.7 ML VIAL SQ ONE; -DEXAMETHASONE SOD PHOSPHATE 10 MG/1 ML VIAL IVPUSH ONE; +FULVESTRANT 250 MG/5 ML SYRINGE IM ONE; -IOHEXOL 180 MG/1 ML ML IJ ONE; -LIDOCAINE HCL 1%, 10 MG/ML (20ML VIAL) ID ONE; -LIDOCAINE HCL/PF 2% SDV 5ML VIAL SQ ONE
[2020-08-14] MEDS ORDERED: DENOSUMAB 120 MG/1.7 ML VIAL SQ ONE (10:00)
[2020-08-14] MEDS ORDERED: FULVESTRANT 250 MG/5 ML SYRINGE IM ONE (10:00)
[2020-08-14 15:13] VITALS: BP 132/52; PULSE 103; TEMP 98
[2020-08-14 15:16] LABS: BASO % 1.5 % (0-2.0); EOS % 1.4 % (0-4.5); HEMATOCRIT 27.6 % (32.4-45.2); HEMOGLOBIN 9.5 GM/dL (10.7-15.3); LYMPH % 23.1 % (8-40); MCH 36.6 pg (25.7-33.7); MCHC 34.4 g/dl (32.0-36.0); MEAN CELL VOLUME 106.6 fl (80-96); MEAN PLT VOLUME 7.6 fl (7.5-11.1); PLATELET COUNT 336 K/MM3 (134-434); RBC 2.59 M/mm3 (3.60-5.2); RDW 16.6 % (11.6-15.6); WHITE BLOOD COUNT 3.2 K/mm3 (4.0-10.0)
[2020-08-14 15:34] LABS: ALBUMIN 2.6 g/dl (3.4-5.0)
[2020-08-14 15:36] LABS: BLOOD UREA NITROGEN 5.1 mg/dL (7-18); MAGNESIUM 2.2 mg/dL (1.8-2.4)
[2020-08-14 15:37] LABS: BILIRUBIN,DIRECT 0.2 mg/dL (0.0-0.2); CREATININE 0.7 mg/dL (0.55-1.3)
[2020-08-14 15:39] LABS: BILIRUBIN,TOTAL 0.5 mg/dL (0.2-1); TOT PROT 5.7 g/dl (6.4-8.2)
[2020-08-14 16:52] LABS: ANISOCYTOSIS 2+; MACROCYTOSIS 2+; OVALOCYTE 1+; PLATELET ESTIMATE NORMAL; ROULEAU 1+
== END 2020-08-14 15:16 | disposition home or self-care (01) ==
LOC: JONCCHEMO 07:14
PROVIDERS: ATTEND Internal Medicine Hematology & Oncology
PROC: 3E02305 Introduction of Other Antineoplastic into Muscle, Percutaneous Approach (ICD-10-PCS; principal; 2020-08-14)
PROC: 3E013GC Introduction of Other Therapeutic Substance into Subcutaneous Tissue, Percutaneous Approach (ICD-10-PCS; 2020-08-14)
DX: Z51.11 Encounter for antineoplastic chemotherapy (principal); C50.412 Malignant neoplasm of upper-outer quadrant of left female breast; C78.01 Secondary malignant neoplasm of right lung; C79.51 Secondary malignant neoplasm of bone
CPT/HCPCS: 36415; 80048; 80061; 80076; 82378; 82728; 83036; 83540; 83550; 83721; 83735; 85025; 86300; 96372; 96402; J0897; J9395

== ENCOUNTER 2020-09-11 07:27 | Day surgery (SDC) | payer OTHER, MEDICARE ==
[2020-09-11] MEDS ORDERED: DENOSUMAB 120 MG/1.7 ML VIAL SQ ONE (10:00)
[2020-09-11] MEDS ORDERED: FULVESTRANT 250 MG/5 ML SYRINGE IM ONE (10:00)
[2020-09-11 14:25] LABS: BASO % 2.7 % (0-2.0); EOS % 2.1 % (0-4.5); HEMATOCRIT 27.2 % (32.4-45.2); HEMOGLOBIN 9.4 GM/dL (10.7-15.3); LYMPH % 22.8 % (8-40); MCH 37.1 pg (25.7-33.7); MCHC 34.6 g/dl (32.0-36.0); MEAN CELL VOLUME 107.1 fl (80-96); MEAN PLT VOLUME 7.6 fl (7.5-11.1); MONO % 9.2 % (3.8-10.2); NEUT % 63.2 % (42.8-82.8); PLATELET COUNT 430 K/MM3 (134-434); RBC 2.54 M/mm3 (3.60-5.2)
[2020-09-11 14:46] LABS: CALCIUM 8.3 mg/dL (8.5-10.1)
[2020-09-11 14:47] LABS: BLOOD UREA NITROGEN 5.7 mg/dL (7-18); MAGNESIUM 2.1 mg/dL (1.8-2.4)
[2020-09-11 14:50] LABS: BILIRUBIN,DIRECT 0.2 mg/dL (0.0-0.2); CREATININE 0.7 mg/dL (0.55-1.3)
[2020-09-11 14:51] LABS: BILIRUBIN,TOTAL 0.5 mg/dL (0.2-1)
[2020-09-11 14:52] LABS: TOT PROT 6.5 g/dl (6.4-8.2)
[2020-09-11 14:57] LABS: ANISOCYTOSIS 1+; MACROCYTOSIS 1+; OVALOCYTE 1+; PLATELET ESTIMATE NORMAL
[2020-09-11 17:48] VITALS: BP 133/51; PULSE 95; TEMP 98.1
== END 2020-09-11 14:30 | disposition home or self-care (01) ==
LOC: JONCCHEMO 07:27
PROVIDERS: ATTEND Internal Medicine Hematology & Oncology
PROC: 3E01305 Introduction of Other Antineoplastic into Subcutaneous Tissue, Percutaneous Approach (ICD-10-PCS; principal; 2020-09-11)
PROC: 3E013GC Introduction of Other Therapeutic Substance into Subcutaneous Tissue, Percutaneous Approach (ICD-10-PCS; 2020-09-11)
DX: Z51.11 Encounter for antineoplastic chemotherapy (principal); C50.412 Malignant neoplasm of upper-outer quadrant of left female breast; C78.01 Secondary malignant neoplasm of right lung; C79.51 Secondary malignant neoplasm of bone; Z17.0 Estrogen receptor positive status [ER+]
CPT/HCPCS: 36415; 80048; 80076; 82378; 82607; 83735; 85025; 86300; 96372; 96402; J0897; J9395

== ENCOUNTER 2020-10-09 07:21 | Day surgery (SDC) | payer OTHER, MEDICARE ==
[2020-10-09] MEDS ORDERED: FULVESTRANT 250 MG/5 ML SYRINGE IM ONE (10:00)
[2020-10-09] MEDS ORDERED: DENOSUMAB 120 MG/1.7 ML VIAL SQ ONE (10:00)
[2020-10-09 14:07] LABS: BASO % 3.2 % (0-2.0); EOS % 2.2 % (0-4.5); HEMOGLOBIN 9.3 GM/dL (10.7-15.3); LYMPH % 19.4 % (8-40); MCH 35.7 pg (25.7-33.7); MEAN PLT VOLUME 7.5 fl (7.5-11.1); MONO % 14.1 % (3.8-10.2); NEUT % 61.1 % (42.8-82.8); PLATELET COUNT 369 10^3/uL (134-434); WHITE BLOOD COUNT 3.9 K/mm3 (4.0-10.0)
[2020-10-09 14:25] LABS: CALCIUM 8.2 mg/dL (8.5-10.1)
[2020-10-09 14:26] LABS: ALBUMIN 3.2 g/dl (3.4-5.0); BLOOD UREA NITROGEN 5.6 mg/dL (7-18); MAGNESIUM 2.1 mg/dL (1.8-2.4)
[2020-10-09 14:29] LABS: BILIRUBIN,DIRECT 0.1 mg/dL (0.0-0.2); CREATININE 0.7 mg/dL (0.55-1.3)
[2020-10-09 14:30] LABS: BILIRUBIN,TOTAL 0.3 mg/dL (0.2-1); TOT PROT 6.3 g/dl (6.4-8.2)
[2020-10-09 14:46] LABS: ANISOCYTOSIS 1+; MACROCYTOSIS 1+; OVALOCYTE 1+; PLATELET ESTIMATE NORMAL
[2020-10-09 16:27] VITALS: BP 124/52; PULSE 96; TEMP 98.2
== END 2020-10-09 13:40 | disposition home or self-care (01) ==
LOC: JONCCHEMO 07:21
PROVIDERS: ATTEND Internal Medicine Hematology & Oncology
PROC: 3E02305 Introduction of Other Antineoplastic into Muscle, Percutaneous Approach (ICD-10-PCS; principal; 2020-10-09)
PROC: 3E013GC Introduction of Other Therapeutic Substance into Subcutaneous Tissue, Percutaneous Approach (ICD-10-PCS; 2020-10-09)
DX: Z51.11 Encounter for antineoplastic chemotherapy (principal); C50.412 Malignant neoplasm of upper-outer quadrant of left female breast; C78.01 Secondary malignant neoplasm of right lung; C79.51 Secondary malignant neoplasm of bone; Z17.0 Estrogen receptor positive status [ER+]
CPT/HCPCS: 36415; 80048; 80076; 83735; 85025; 96372; 96402; J0897; J9395

== ENCOUNTER 2020-11-02 21:06 | Inpatient (IN) | payer OTHER, MEDICARE ==
[2020-11-02 23:04] LABS: EOS % 2.6 % (0-4.5); HEMATOCRIT 26.5 % (32.4-45.2); MCH 36.6 pg (25.7-33.7); MCHC 33.9 g/dl (32.0-36.0); MEAN PLT VOLUME 8.7 fl (7.5-11.1); MONO % 9.9 % (3.8-10.2); NEUT % 63.5 % (42.8-82.8); PLATELET COUNT 134 10^3/uL (134-434); RBC 2.45 M/mm3 (3.60-5.2); RDW 17.1 % (11.6-15.6); WHITE BLOOD COUNT 2.6 K/mm3 (4.0-10.0)
[2020-11-02] MEDS ORDERED: PIPERACILLIN/TAZOB 3.375 GM 3.375 GM in DEXTROSE 5%-WATER - 50 ML IVPB ONE (23:06)
[2020-11-02] MEDS ORDERED: VANCOMYCIN 1 GM in D5W (PRE-DOCKED) 1,000 MG/250 ML IVPB ONE (23:06)
[2020-11-02] MEDS ORDERED: VANCOMYCIN 1 GRAM (PRE-DOCKED) 1,000 MG/250 ML BAG IVPB ONE (23:15)
[2020-11-02] MEDS ORDERED: PIPERACILLIN/TAZOB 3.375 GM 3.375 GM/50 ML BAG IVPB ONE (23:15)
[2020-11-02 23:24] LABS: ALBUMIN 3.3 g/dl (3.4-5.0); BLOOD UREA NITROGEN 8.3 mg/dL (7-18); CALCIUM 8.5 mg/dL (8.5-10.1)
[2020-11-02 23:28] LABS: CREATININE 0.8 mg/dL (0.55-1.3)
[2020-11-02 23:29] LABS: BILIRUBIN,TOTAL 0.3 mg/dL (0.2-1); TOT PROT 6.6 g/dl (6.4-8.2)
[2020-11-02] MEDS ORDERED: IMIPENEM/CILASTATIN SODIUM 500 MG in SODIUM CHLORIDE 100 ML IVPB ONE (23:45)
[2020-11-03 00:03] LABS: ANISOCYTOSIS 1+; MACROCYTOSIS 2+; PLATELET ESTIMATE DECREASED
[2020-11-03] MEDS ORDERED: traMADol HCL 50 MG TABLET PO ONE (02:54)
[2020-11-03] MEDS ORDERED: traMADol HCL 50 MG TABLET ONE (03:07)
[2020-11-03 05:44] VITALS: BMI 26.6
[2020-11-03] MEDS: INSULIN SLIDING SCALE (NOVOLOG) 1 VIAL SQ SCH ×2 (06:18→11:05)
[2020-11-03] MEDS: LEVOTHYROXINE NA 25 MCG TABLET (FP) PO SCH (06:43)
[2020-11-03 08:24] LABS: BASO % 2.2 % (0-2.0); LYMPH % 36.7 % (8-40); MCH 36.1 pg (25.7-33.7); MCHC 33.2 g/dl (32.0-36.0); MEAN CELL VOLUME 108.5 fl (80-96); MEAN PLT VOLUME 9.2 fl (7.5-11.1); MONO % 9.7 % (3.8-10.2); NEUT % 47.4 % (42.8-82.8); PLATELET COUNT 136 10^3/uL (134-434); RBC 2.49 M/mm3 (3.60-5.2); RDW 17.1 % (11.6-15.6); WHITE BLOOD COUNT 2.3 K/mm3 (4.0-10.0)
[2020-11-03 08:40] LABS: CALCIUM 8.1 mg/dL (8.5-10.1)
[2020-11-03 08:41] LABS: BLOOD UREA NITROGEN 6.2 mg/dL (7-18)
[2020-11-03 08:43] LABS: CREATININE 0.7 mg/dL (0.55-1.3)
[2020-11-03] MEDS ORDERED: PANTOPRAZOLE 40 MG TABLET PO SCH (10:00)
[2020-11-03] MEDS: LORATADINE 10 MG TABLET PO SCH (10:02)
[2020-11-03] MEDS: LOSARTAN POTASSIUM 25 MG TABLET PO SCH (10:03)
[2020-11-03] MEDS: HEPARIN NA (PORCINE) 5,000 UNITS/ML 1ML VIAL SQ SCH ×2 (10:03→21:29)
[2020-11-03] MEDS: [UNRECOGNIZED DRUG - REMARK] PO SCH (14:34)
[2020-11-03] MEDS: VANCOMYCIN/WATER FOR INJ (PEG) 750 MG/150 ML BAG IVPB SCH (15:25)
[2020-11-03] MEDS: FAMOTIDINE 20 MG TABLET PO SCH (16:11)
[2020-11-03] MEDS: diphenhydrAMINE HCL 25 MG CAPSULE (FP) PO PRN (16:25)
[2020-11-03] MEDS: metFORMIN HCL 500 MG TABLET (FP) PO SCH (16:25)
[2020-11-03] MEDS ORDERED: PT OWN MED DRAWER 7, Y5N ONE (20:59)
[2020-11-03] MEDS: ATORVASTATIN CA 10 MG TABLET (FP) PO SCH (21:27)
[2020-11-03] MEDS: traMADol HCL 50 MG TABLET PO PRN (21:27)
[2020-11-03] MEDS: CYCLOBENZAPRINE HCL 5 MG TABLET PO SCH (21:27)
[2020-11-03] MEDS: NORTRIPTYLINE HCL 10 MG CAPSULE PO SCH (21:27)
[2020-11-03] MEDS: TERAZOSIN HCL 1 MG CAPSULE PO SCH (21:29)
[2020-11-04] MEDS ORDERED: VANCOMYCIN 750 MG in DEXTROSE 5%-WATER - 250 ML IVPB SCH (01:00)
[2020-11-04] MEDS: diphenhydrAMINE HCL 25 MG CAPSULE (FP) PO PRN ×2 (03:31→15:20)
[2020-11-04] MEDS: VANCOMYCIN/WATER FOR INJ (PEG) 750 MG/150 ML BAG IVPB SCH ×2 (04:01→15:52)
[2020-11-04] MEDS: metFORMIN HCL 500 MG TABLET (FP) PO SCH ×2 (06:31→15:51)
[2020-11-04] MEDS: LEVOTHYROXINE NA 25 MCG TABLET (FP) PO SCH (06:31)
[2020-11-04 09:23] LABS: BASO % 2.4 % (0-2.0); EOS % 4.3 % (0-4.5); HEMATOCRIT 28.5 % (32.4-45.2); HEMOGLOBIN 9.6 GM/dL (10.7-15.3); LYMPH % 41.1 % (8-40); MCH 36.4 pg (25.7-33.7); MCHC 33.6 g/dl (32.0-36.0); MEAN CELL VOLUME 108.4 fl (80-96); MONO % 6.3 % (3.8-10.2); NEUT % 45.9 % (42.8-82.8); PLATELET COUNT 149 10^3/uL (134-434); RBC 2.63 M/mm3 (3.60-5.2); RDW 17.3 % (11.6-15.6); WHITE BLOOD COUNT 2.3 K/mm3 (4.0-10.0)
[2020-11-04 09:52] LABS: CALCIUM 8.1 mg/dL (8.5-10.1)
[2020-11-04 09:53] LABS: ALBUMIN 3.2 g/dl (3.4-5.0)
[2020-11-04 09:55] LABS: CREATININE 0.7 mg/dL (0.55-1.3)
[2020-11-04 09:57] LABS: BILIRUBIN,TOTAL 0.3 mg/dL (0.2-1); TOT PROT 6.4 g/dl (6.4-8.2)
[2020-11-04] MEDS: HEPARIN NA (PORCINE) 5,000 UNITS/ML 1ML VIAL SQ SCH ×2 (11:23→21:13)
[2020-11-04] MEDS: FAMOTIDINE 20 MG TABLET PO SCH (11:23)
[2020-11-04] MEDS: LOSARTAN POTASSIUM 25 MG TABLET PO SCH (11:24)
[2020-11-04] MEDS: LORATADINE 10 MG TABLET PO SCH (11:24)
[2020-11-04] MEDS: [UNRECOGNIZED DRUG - REMARK] PO SCH (11:24)
[2020-11-04] MEDS: CYCLOBENZAPRINE HCL 5 MG TABLET PO SCH ×2 (11:24→21:13)
[2020-11-04] MEDS ORDERED: PT OWN MED DRAWER 7, Y5N ONE ×5 (11:34→21:04)
[2020-11-04] MEDS: HYDROCORTISONE 1% TOPICAL CREAM 30 GM TUBE TP SCH ×2 (16:52→21:14)
[2020-11-04] MEDS: NORTRIPTYLINE HCL 10 MG CAPSULE PO SCH (21:12)
[2020-11-04] MEDS: ATORVASTATIN CA 10 MG TABLET (FP) PO SCH (21:12)
[2020-11-04] MEDS: PANTOPRAZOLE 40 MG TABLET PO SCH (21:13)
[2020-11-04] MEDS: traMADol HCL 50 MG TABLET PO PRN (21:14)
[2020-11-04] MEDS: TERAZOSIN HCL 1 MG CAPSULE PO SCH (21:14)
[2020-11-05] MEDS ORDERED: PT OWN MED DRAWER 7, Y5N ONE ×4 (04:08→22:22)
[2020-11-05] MEDS: diphenhydrAMINE HCL 25 MG CAPSULE (FP) PO PRN ×2 (04:12→15:57)
[2020-11-05] MEDS: VANCOMYCIN/WATER FOR INJ (PEG) 750 MG/150 ML BAG IVPB SCH ×2 (04:40→16:45)
[2020-11-05] MEDS: metFORMIN HCL 500 MG TABLET (FP) PO SCH ×2 (06:11→16:49)
[2020-11-05] MEDS: LEVOTHYROXINE NA 25 MCG TABLET (FP) PO SCH (06:11)
[2020-11-05] MEDS: LOSARTAN POTASSIUM 25 MG TABLET PO SCH (09:14)
[2020-11-05] MEDS: CYCLOBENZAPRINE HCL 5 MG TABLET PO SCH ×2 (09:14→21:41)
[2020-11-05] MEDS: HYDROCORTISONE 1% TOPICAL CREAM 30 GM TUBE TP SCH ×2 (09:15→21:42)
[2020-11-05] MEDS: HEPARIN NA (PORCINE) 5,000 UNITS/ML 1ML VIAL SQ SCH ×2 (09:15→21:42)
[2020-11-05] MEDS: FAMOTIDINE 20 MG TABLET PO SCH (09:15)
[2020-11-05] MEDS: LORATADINE 10 MG TABLET PO SCH (09:15)
[2020-11-05] MEDS: LIDOCAINE 5% TOPICAL PATCH TP SCH (09:16)
[2020-11-05] MEDS: [UNRECOGNIZED DRUG - REMARK] PO SCH (09:17)
[2020-11-05] MEDS: LIDOCAINE HCL 5% TOP OINTMENT 50 GM TUBE TP SCH ×2 (15:57→21:42)
[2020-11-05] MEDS: TERAZOSIN HCL 1 MG CAPSULE PO SCH (21:41)
[2020-11-05] MEDS: ATORVASTATIN CA 10 MG TABLET (FP) PO SCH (21:41)
[2020-11-05] MEDS: PANTOPRAZOLE 40 MG TABLET PO SCH (21:41)
[2020-11-05] MEDS ORDERED: LIDOCAINE PATCH REMOVAL MC SCH (22:00)
[2020-11-05] MEDS: NORTRIPTYLINE HCL 10 MG CAPSULE PO SCH (22:12)
[2020-11-05] MEDS: traMADol HCL 50 MG TABLET PO PRN (22:43)
[2020-11-06] MEDS: LEVOTHYROXINE NA 25 MCG TABLET (FP) PO SCH (06:22)
[2020-11-06] MEDS: FAMOTIDINE 20 MG TABLET PO SCH (09:48)
[2020-11-06] MEDS: LOSARTAN POTASSIUM 25 MG TABLET PO SCH (09:48)
[2020-11-06] MEDS: CYCLOBENZAPRINE HCL 5 MG TABLET PO SCH ×2 (09:48→21:31)
[2020-11-06] MEDS: GABAPENTIN 100 MG CAPSULE PO SCH (09:48)
[2020-11-06] MEDS: LORATADINE 10 MG TABLET PO SCH (09:49)
[2020-11-06] MEDS: [UNRECOGNIZED DRUG - REMARK] PO SCH (09:49)
[2020-11-06] MEDS: HYDROCORTISONE 1% TOPICAL CREAM 30 GM TUBE TP SCH ×2 (09:51→21:32)
[2020-11-06] MEDS: LIDOCAINE 5% TOPICAL PATCH TP SCH ×2 (09:51→10:30)
[2020-11-06] MEDS: LIDOCAINE HCL 5% TOP OINTMENT 50 GM TUBE TP SCH ×2 (09:52→21:32)
[2020-11-06] MEDS: HEPARIN NA (PORCINE) 5,000 UNITS/ML 1ML VIAL SQ SCH ×2 (09:52→21:32)
[2020-11-06] MEDS ORDERED: PT OWN MED DRAWER 7, Y5N ONE (10:00)
[2020-11-06 11:01] LABS: BASO % 4.3 % (0-2.0); EOS % 2.8 % (0-4.5); HEMATOCRIT 28.7 % (32.4-45.2); HEMOGLOBIN 9.6 GM/dL (10.7-15.3); LYMPH % 30.3 % (8-40); MCHC 33.5 g/dl (32.0-36.0); MEAN CELL VOLUME 110.5 fl (80-96); MEAN PLT VOLUME 9.4 fl (7.5-11.1); MONO % 5.6 % (3.8-10.2); PLATELET COUNT 168 10^3/uL (134-434); RDW 17.7 % (11.6-15.6); WHITE BLOOD COUNT 2.3 K/mm3 (4.0-10.0)
[2020-11-06 11:10] LABS: ALBUMIN 3.2 g/dl (3.4-5.0); CALCIUM 8.1 mg/dL (8.5-10.1)
[2020-11-06 11:15] LABS: BILIRUBIN,TOTAL 0.3 mg/dL (0.2-1); CREATININE 0.7 mg/dL (0.55-1.3); TOT PROT 6.7 g/dl (6.4-8.2)
[2020-11-06 11:41] LABS: ANISOCYTOSIS 2+; MACROCYTOSIS 2+; PLATELET ESTIMATE NORMAL
[2020-11-06] MEDS: metFORMIN HCL 500 MG TABLET (FP) PO SCH ×2 (12:13→19:16)
[2020-11-06] MEDS: ATORVASTATIN CA 10 MG TABLET (FP) PO SCH (21:31)
[2020-11-06] MEDS: TERAZOSIN HCL 1 MG CAPSULE PO SCH (21:31)
[2020-11-06] MEDS: PANTOPRAZOLE 40 MG TABLET PO SCH (21:31)
[2020-11-06] MEDS: NORTRIPTYLINE HCL 10 MG CAPSULE PO SCH (21:34)
[2020-11-06] MEDS: traMADol HCL 50 MG TABLET PO PRN (23:52)
[2020-11-07] MEDS: LEVOTHYROXINE NA 25 MCG TABLET (FP) PO SCH (06:43)
[2020-11-07] MEDS: metFORMIN HCL 500 MG TABLET (FP) PO SCH (08:26)
[2020-11-07] MEDS: LOSARTAN POTASSIUM 25 MG TABLET PO SCH (10:42)
[2020-11-07] MEDS: CYCLOBENZAPRINE HCL 5 MG TABLET PO SCH (10:42)
[2020-11-07] MEDS: GABAPENTIN 100 MG CAPSULE PO SCH (10:43)
[2020-11-07] MEDS: LIDOCAINE 5% TOPICAL PATCH TP SCH (10:43)
[2020-11-07] MEDS: LORATADINE 10 MG TABLET PO SCH (10:43)
[2020-11-07] MEDS: LIDOCAINE HCL 5% TOP OINTMENT 50 GM TUBE TP SCH (10:43)
[2020-11-07] MEDS: [UNRECOGNIZED DRUG - REMARK] PO SCH (10:43)
[2020-11-07] MEDS: FAMOTIDINE 20 MG TABLET PO SCH (10:43)
[2020-11-07] MEDS: HEPARIN NA (PORCINE) 5,000 UNITS/ML 1ML VIAL SQ SCH (10:44)
[2020-11-07] MEDS: HYDROCORTISONE 1% TOPICAL CREAM 30 GM TUBE TP SCH (10:44)
[2020-11-07 10:48] VITALS: BP 138/58; PULSE 89; TEMP 98.6
== END 2020-11-07 12:16 | disposition home health service (06) | DRG 607 ==
LOC: JER 21:06 → JERBED 11-03 00:56 → J5S 11-03 05:28
PROVIDERS: ADMIT Internal Medicine; ATTEND Internal Medicine
DX: M79.3 Panniculitis, unspecified (principal); C78.00 Secondary malignant neoplasm of unspecified lung; C79.51 Secondary malignant neoplasm of bone; I10 Essential (primary) hypertension; E78.5 Hyperlipidemia, unspecified; E11.9 Type 2 diabetes mellitus without complications; K21.9 Gastro-esophageal reflux disease without esophagitis; C50.919 Malignant neoplasm of unspecified site of unspecified female breast; D72.819 Decreased white blood cell count, unspecified; D64.9 Anemia, unspecified; M54.9 Dorsalgia, unspecified; E03.9 Hypothyroidism, unspecified
CPT/HCPCS: 36415; 71045-TC-FY; 73590-TC-LT-FY; 73590-TC-RT-FY; 80048; 80053; 82607; 82728; 82747; 82962; 83036; 83540; 83550; 84443; 84466; 85014; 85025; 85045; 85651; 87040; 93005; 93010; 93970-TC; 97116-GP; 97162-GP; 99285-25; C9803; G0480; J1644; U0003; U0005

== ENCOUNTER 2020-11-16 06:42 | Day surgery (SDC) | payer OTHER, MEDICARE ==
[2020-11-16] MEDS ORDERED: DENOSUMAB 120 MG/1.7 ML VIAL SQ ONE (10:00)
[2020-11-16] MEDS ORDERED: FULVESTRANT 250 MG/5 ML SYRINGE IM ONE (10:00)
[2020-11-16 13:51] LABS: BASO % 3.8 % (0-2.0); LYMPH % 33.9 % (8-40); MCH 38.1 pg (25.7-33.7); MCHC 34.8 g/dl (32.0-36.0); MEAN CELL VOLUME 109.6 fl (80-96); MEAN PLT VOLUME 8.2 fl (7.5-11.1); MONO % 7.3 % (3.8-10.2); PLATELET COUNT 206 10^3/uL (134-434); RBC 2.37 M/mm3 (3.60-5.2); RDW 17.6 % (11.6-15.6); WHITE BLOOD COUNT 2.2 K/mm3 (4.0-10.0)
[2020-11-16 14:13] LABS: ALBUMIN 3.3 g/dl (3.4-5.0); CALCIUM 8.2 mg/dL (8.5-10.1)
[2020-11-16 14:14] LABS: BLOOD UREA NITROGEN 7.7 mg/dL (7-18)
[2020-11-16 14:16] LABS: BILIRUBIN,DIRECT 0.1 mg/dL (0.0-0.2); CREATININE 0.8 mg/dL (0.55-1.3)
[2020-11-16 14:18] LABS: BILIRUBIN,TOTAL 0.4 mg/dL (0.2-1); TOT PROT 6.6 g/dl (6.4-8.2)
[2020-11-16 14:27] LABS: ANISOCYTOSIS 1+; MACROCYTOSIS 1+; PLATELET ESTIMATE NORMAL
[2020-11-16 16:46] VITALS: BP 126/48; PULSE 86; TEMP 99.1
== END 2020-11-16 14:10 | disposition home or self-care (01) ==
LOC: JONCCHEMO 06:42
PROVIDERS: ATTEND Internal Medicine Hematology & Oncology
PROC: 3E02305 Introduction of Other Antineoplastic into Muscle, Percutaneous Approach (ICD-10-PCS; principal; 2020-11-16)
PROC: 3E013GC Introduction of Other Therapeutic Substance into Subcutaneous Tissue, Percutaneous Approach (ICD-10-PCS; 2020-11-16)
DX: Z51.11 Encounter for antineoplastic chemotherapy (principal); C50.412 Malignant neoplasm of upper-outer quadrant of left female breast; C78.01 Secondary malignant neoplasm of right lung; C79.51 Secondary malignant neoplasm of bone; Z17.0 Estrogen receptor positive status [ER+]
CPT/HCPCS: 36415; 80048; 80076; 82378; 83735; 85025; 86300; 96372; 96402; J0897; J9395

== ENCOUNTER 2020-12-18 07:25 | Day surgery (SDC) | payer OTHER, MEDICARE ==
[2020-12-18] MEDS ORDERED: FULVESTRANT 250 MG/5 ML SYRINGE IM ONE (10:00)
[2020-12-18 14:47] LABS: HEMATOCRIT 23.2 % (32.4-45.2); MCH 37.7 pg (25.7-33.7); MCHC 34.4 g/dl (32.0-36.0); MEAN CELL VOLUME 109.9 fl (80-96); MEAN PLT VOLUME 9.5 fl (7.5-11.1); PLATELET COUNT 167 10^3/uL (134-434); RBC 2.11 M/mm3 (3.60-5.2); RDW 17.9 % (11.6-15.6); WHITE BLOOD COUNT 2.4 K/mm3 (4.0-10.0)
[2020-12-18 15:07] LABS: ALBUMIN 2.8 g/dl (3.4-5.0); CALCIUM 7.9 mg/dL (8.5-10.1); MAGNESIUM 1.9 mg/dL (1.8-2.4)
[2020-12-18 15:10] LABS: BILIRUBIN,DIRECT 0.1 mg/dL (0.0-0.2); CREATININE 0.9 mg/dL (0.55-1.3)
[2020-12-18 15:12] LABS: BILIRUBIN,TOTAL 0.3 mg/dL (0.2-1); TOT PROT 6.4 g/dl (6.4-8.2)
[2020-12-18 15:27] LABS: ANISOCYTOSIS 1+; MACROCYTOSIS 1+; OVALOCYTE 1+; PLATELET ESTIMATE NORMAL; TEAR DROP CELLS 1+
[2020-12-18 16:38] VITALS: BP 125/50; PULSE 84; TEMP 98.4
== END 2020-12-18 14:35 | disposition home or self-care (01) ==
LOC: JONCCHEMO 07:25
PROVIDERS: ATTEND Internal Medicine Hematology & Oncology
DX: Z51.11 Encounter for antineoplastic chemotherapy (principal); C50.412 Malignant neoplasm of upper-outer quadrant of left female breast; Z17.0 Estrogen receptor positive status [ER+]; C78.01 Secondary malignant neoplasm of right lung; C79.51 Secondary malignant neoplasm of bone
CPT/HCPCS: 36415; 80048; 80076; 82378; 83735; 85025; 86300; 96372; J9395

== ENCOUNTER 2021-01-15 07:21 | Day surgery (SDC) | payer OTHER, MEDICARE ==
[2021-01-15] MEDS ORDERED: FULVESTRANT 250 MG/5 ML SYRINGE IM ONE (11:30)
[2021-01-15 14:47] LABS: HEMATOCRIT 23.6 % (32.4-45.2); HEMOGLOBIN 8.1 GM/dL (10.7-15.3); MCH 37.6 pg (25.7-33.7); MCHC 34.4 g/dl (32.0-36.0); MEAN CELL VOLUME 109.2 fl (80-96); MEAN PLT VOLUME 8.9 fl (7.5-11.1); PLATELET COUNT 196 10^3/uL (134-434); RBC 2.17 M/mm3 (3.60-5.2); RDW 18.2 % (11.6-15.6); WHITE BLOOD COUNT 2.6 K/mm3 (4.0-10.0)
[2021-01-15 15:07] LABS: CALCIUM 8.3 mg/dL (8.5-10.1)
[2021-01-15 15:08] LABS: BLOOD UREA NITROGEN 8.4 mg/dL (7-18); MAGNESIUM 1.8 mg/dL (1.8-2.4)
[2021-01-15 15:10] LABS: BILIRUBIN,DIRECT 0.2 mg/dL (0.0-0.2)
[2021-01-15 15:12] LABS: BILIRUBIN,TOTAL 0.3 mg/dL (0.2-1); TOT PROT 6.6 g/dl (6.4-8.2)
[2021-01-15 15:16] LABS: ANISOCYTOSIS 1+; MACROCYTOSIS 1+; OVALOCYTE 1+; PLATELET ESTIMATE NORMAL; TEAR DROP CELLS 1+
[2021-01-15 16:26] VITALS: BP 132/51; PULSE 87; TEMP 98.7
== END 2021-01-15 14:30 | disposition home or self-care (01) ==
LOC: JONCCHEMO 07:21
PROVIDERS: ATTEND Internal Medicine Hematology & Oncology
DX: Z51.11 Encounter for antineoplastic chemotherapy (principal); C50.412 Malignant neoplasm of upper-outer quadrant of left female breast; C78.01 Secondary malignant neoplasm of right lung; C79.51 Secondary malignant neoplasm of bone; Z17.0 Estrogen receptor positive status [ER+]; E11.9 Type 2 diabetes mellitus without complications; Z79.84 Long term (current) use of oral hypoglycemic drugs
CPT/HCPCS: 36415; 80048; 80076; 82306; 82378; 82728; 83036; 83540; 83550; 83735; 85025; 86300; 96402; J9395

== ENCOUNTER 2021-02-12 07:51 | Day surgery (SDC) | payer OTHER, MEDICARE ==
[2021-02-12] MEDS ORDERED: FULVESTRANT 250 MG/5 ML SYRINGE IM ONE (10:00)
[2021-02-12] MEDS ORDERED: DENOSUMAB 120 MG/1.7 ML VIAL SQ ONE (10:00)
[2021-02-12 15:00] LABS: EOS % 2.5 % (0-4.5); HEMATOCRIT 28.7 % (32.4-45.2); LYMPH % 27.3 % (8-40); MCH 39.1 pg (25.7-33.7); MCHC 34.8 g/dl (32.0-36.0); MEAN CELL VOLUME 112.4 fl (80-96); MEAN PLT VOLUME 7.7 fl (7.5-11.1); MONO % 6.4 % (3.8-10.2); NEUT % 61.8 % (42.8-82.8); PLATELET COUNT 261 10^3/uL (134-434); RBC 2.55 M/mm3 (3.60-5.2); RDW 17.6 % (11.6-15.6); WHITE BLOOD COUNT 3.3 K/mm3 (4.0-10.0)
[2021-02-12 15:07] LABS: CALCIUM 8.6 mg/dL (8.5-10.1)
[2021-02-12 15:08] LABS: ALBUMIN 3.3 g/dl (3.4-5.0); BLOOD UREA NITROGEN 15.6 mg/dL (7-18); MAGNESIUM 1.9 mg/dL (1.8-2.4)
[2021-02-12 15:10] LABS: BILIRUBIN,DIRECT 0.2 mg/dL (0.0-0.2)
[2021-02-12 15:12] LABS: BILIRUBIN,TOTAL 0.4 mg/dL (0.2-1); TOT PROT 6.7 g/dl (6.4-8.2)
[2021-02-12 15:31] LABS: ANISOCYTOSIS 2+; MACROCYTOSIS 2+; OVALOCYTE 1+; PLATELET ESTIMATE NORMAL
[2021-02-12 17:10] VITALS: BP 156/58; PULSE 76; TEMP 97.7
[2021-02-16 07:14] LABS: CARCINOEMBRYONIC ANTIGEN 6.6 ng/mL (0.0-4.7)
== END 2021-02-12 14:30 | disposition home or self-care (01) ==
LOC: JONCCHEMO 07:51
PROVIDERS: ATTEND Internal Medicine Hematology & Oncology
PROC: 3E02305 Introduction of Other Antineoplastic into Muscle, Percutaneous Approach (ICD-10-PCS; principal; 2021-02-12)
PROC: 3E013GC Introduction of Other Therapeutic Substance into Subcutaneous Tissue, Percutaneous Approach (ICD-10-PCS; 2021-02-12)
DX: Z51.11 Encounter for antineoplastic chemotherapy (principal); C50.412 Malignant neoplasm of upper-outer quadrant of left female breast; C78.01 Secondary malignant neoplasm of right lung; C79.51 Secondary malignant neoplasm of bone; Z17.0 Estrogen receptor positive status [ER+]; E11.9 Type 2 diabetes mellitus without complications; Z79.84 Long term (current) use of oral hypoglycemic drugs
CPT/HCPCS: 36415; 80048; 80076; 82378; 83735; 85025; 86300; 96372; 96402; J0897; J9395

== ENCOUNTER 2021-03-10 07:15 | Day surgery (SDC) | payer OTHER, MEDICARE ==
[2021-03-10] MEDS ORDERED: FULVESTRANT 250 MG/5 ML SYRINGE IM ONE (10:00)
[2021-03-10 15:30] LABS: BASO % 2.2 % (0-2.0); EOS % 3.8 % (0-4.5); HEMATOCRIT 28.9 % (32.4-45.2); LYMPH % 29.2 % (8-40); MCH 38.2 pg (25.7-33.7); MCHC 34.4 g/dl (32.0-36.0); MEAN CELL VOLUME 110.9 fl (80-96); MEAN PLT VOLUME 7.2 fl (7.5-11.1); MONO % 11.3 % (3.8-10.2); NEUT % 53.5 % (42.8-82.8); PLATELET COUNT 344 10^3/uL (134-434); RBC 2.61 M/mm3 (3.60-5.2); RDW 16.9 % (11.6-15.6); WHITE BLOOD COUNT 3.3 K/mm3 (4.0-10.0)
[2021-03-10 15:50] LABS: ANISOCYTOSIS 2+; MACROCYTOSIS 2+; PLATELET ESTIMATE NORMAL
[2021-03-10 16:06] LABS: ALBUMIN 3.3 g/dl (3.4-5.0); BILIRUBIN,DIRECT 0.1 mg/dL (0.0-0.2); BILIRUBIN,TOTAL 0.3 mg/dL (0.2-1); BLOOD UREA NITROGEN 8.7 mg/dL (7-18); CALCIUM 8.7 mg/dL (8.5-10.1); CREATININE 0.8 mg/dL (0.55-1.3); MAGNESIUM 2.2 mg/dL (1.8-2.4); TOT PROT 6.9 g/dl (6.4-8.2)
[2021-03-10 18:02] VITALS: BP 152/42; PULSE 87; TEMP 98
== END 2021-03-10 15:20 | disposition home or self-care (01) ==
LOC: JONCCHEMO 07:15
PROVIDERS: ATTEND Internal Medicine Hematology & Oncology
DX: Z51.11 Encounter for antineoplastic chemotherapy (principal); C50.412 Malignant neoplasm of upper-outer quadrant of left female breast; C78.01 Secondary malignant neoplasm of right lung; C79.51 Secondary malignant neoplasm of bone; Z17.0 Estrogen receptor positive status [ER+]; E11.9 Type 2 diabetes mellitus without complications
CPT/HCPCS: 36415; 80048; 80076; 82378; 83735; 85025; 86300; 96402; J9395

== ENCOUNTER 2021-04-14 07:28 | Day surgery (SDC) | payer OTHER, MEDICARE ==
[2021-04-14] MEDS ORDERED: FULVESTRANT 250 MG/5 ML SYRINGE IM ONE (10:00)
[2021-04-14 14:46] LABS: BASO % 2.9 % (0-2.0); EOS % 1.6 % (0-4.5); HEMATOCRIT 28.9 % (32.4-45.2); HEMOGLOBIN 9.9 GM/dL (10.7-15.3); LYMPH % 25.9 % (8-40); MCH 37.8 pg (25.7-33.7); MCHC 34.1 g/dl (32.0-36.0); MEAN CELL VOLUME 110.9 fl (80-96); MEAN PLT VOLUME 7.4 fl (7.5-11.1); MONO % 5.4 % (3.8-10.2); NEUT % 64.2 % (42.8-82.8); PLATELET COUNT 311 10^3/uL (134-434); RBC 2.61 M/mm3 (3.60-5.2); RDW 16.1 % (11.6-15.6); WHITE BLOOD COUNT 2.9 K/mm3 (4.0-10.0)
[2021-04-14 15:08] LABS: CALCIUM 8.6 mg/dL (8.5-10.1); MAGNESIUM 2.2 mg/dL (1.8-2.4)
[2021-04-14 15:11] LABS: ALBUMIN 3.4 g/dl (3.4-5.0); BLOOD UREA NITROGEN 11.1 mg/dL (7-18)
[2021-04-14 15:12] LABS: CREATININE 0.8 mg/dL (0.55-1.3)
[2021-04-14 15:14] LABS: BILIRUBIN,DIRECT 0.1 mg/dL (0.0-0.2); TOT PROT 6.6 g/dl (6.4-8.2)
[2021-04-14 15:15] LABS: BILIRUBIN,TOTAL 0.4 mg/dL (0.2-1)
[2021-04-14 15:35] LABS: ANISOCYTOSIS 2+; MACROCYTOSIS 2+; PLATELET ESTIMATE NORMAL
[2021-04-14 19:12] VITALS: BP 129/66; PULSE 82; TEMP 97.8
== END 2021-04-14 15:00 | disposition home or self-care (01) ==
LOC: JONCCHEMO 07:28
PROVIDERS: ATTEND Internal Medicine Hematology & Oncology
DX: Z51.11 Encounter for antineoplastic chemotherapy (principal); C50.412 Malignant neoplasm of upper-outer quadrant of left female breast; C78.01 Secondary malignant neoplasm of right lung; C79.51 Secondary malignant neoplasm of bone; E11.9 Type 2 diabetes mellitus without complications
CPT/HCPCS: 36415; 80048; 80061; 80076; 82378; 83036; 83735; 85025; 86300; 96402; J9395

== ENCOUNTER 2021-04-30 04:10 | Day surgery (SDC) | payer OTHER, MEDICARE ==
[2021-04-30] MEDS ORDERED: DEXAMETHASONE SOD PHOSPHATE 10 MG/1 ML VIAL ONE (07:23)
[2021-04-30] MEDS ORDERED: BUPIVACAINE HCL/PF 0.5% (5MG/ML) 10 ML VIAL ONE (07:24)
[2021-04-30] MEDS ORDERED: LIDOCAINE HCL/PF 1% SDV 5ML VIAL ONE (07:24)
[2021-04-30] MEDS ORDERED: BUPIVACAINE HCL/PF 0.75% 10 ML VIAL ONE (07:24)
[2021-04-30 09:30] VITALS: BMI 26.4
[2021-04-30] MEDS ORDERED: LIDOCAINE HCL 1% PRESERVATIVE FREE - 30ML VIAL IJ ONE (10:49)
[2021-04-30] MEDS ORDERED: IOHEXOL 180 MG/1 ML ML IJ ONE (10:51)
[2021-04-30] MEDS ORDERED: DEXAMETHASONE SOD PHOSPHATE 10 MG/1 ML VIAL IM ONE (10:54)
[2021-04-30 11:18] VITALS: PULSE 80; TEMP 97.9
[2021-04-30 12:53] VITALS: BP 140/60
== END 2021-04-30 12:35 | disposition home or self-care (01) ==
LOC: JASU-SURG 04:10
PROVIDERS: ATTEND Pain Medicine Pain Medicine
PROC: 3E0R33Z Introduction of Anti-inflammatory into Spinal Canal, Percutaneous Approach (ICD-10-PCS; 2021-04-30)
PROC: B01BYZZ Fluoroscopy of Spinal Cord using Other Contrast (ICD-10-PCS; 2021-04-30)
PROC: 3E0R3BZ Introduction of Anesthetic Agent into Spinal Canal, Percutaneous Approach (ICD-10-PCS; principal; 2021-04-30 11:30)
DX: M54.16 Radiculopathy, lumbar region (principal); I10 Essential (primary) hypertension; E11.9 Type 2 diabetes mellitus without complications
CPT/HCPCS: 76000-TC-FY; J1100

== ENCOUNTER 2021-05-14 07:56 | Day surgery (SDC) | payer OTHER, MEDICARE ==
[2021-05-14] MEDS ORDERED: FULVESTRANT 250 MG/5 ML SYRINGE IM ONE (10:00)
[2021-05-14] MEDS ORDERED: DENOSUMAB 120 MG/1.7 ML VIAL SQ ONE (10:00)
[2021-05-14 14:05] LABS: BASO % 1.9 % (0-2.0); EOS % 1.8 % (0-4.5); HEMATOCRIT 28.9 % (32.4-45.2); HEMOGLOBIN 9.5 GM/dL (10.7-15.3); LYMPH % 29.2 % (8-40); MCH 36.8 pg (25.7-33.7); MCHC 32.8 g/dl (32.0-36.0); MEAN CELL VOLUME 112.2 fl (80-96); MEAN PLT VOLUME 7.6 fl (7.5-11.1); MONO % 6.8 % (3.8-10.2); NEUT % 60.3 % (42.8-82.8); PLATELET COUNT 305 10^3/uL (134-434); RBC 2.58 M/mm3 (3.60-5.2); RDW 16.5 % (11.6-15.6); WHITE BLOOD COUNT 2.8 K/mm3 (4.0-10.0)
[2021-05-14 14:30] LABS: CALCIUM 9.1 mg/dL (8.5-10.1)
[2021-05-14 14:31] LABS: ALBUMIN 3.3 g/dl (3.4-5.0); BLOOD UREA NITROGEN 13.4 mg/dL (7-18); MAGNESIUM 1.9 mg/dL (1.8-2.4)
[2021-05-14 14:34] LABS: BILIRUBIN,DIRECT 0.1 mg/dL (0.0-0.2); CREATININE 0.8 mg/dL (0.55-1.3)
[2021-05-14 14:35] LABS: BILIRUBIN,TOTAL 0.3 mg/dL (0.2-1)
[2021-05-14 14:36] LABS: TOT PROT 6.5 g/dl (6.4-8.2)
[2021-05-14 16:27] VITALS: TEMP 97.6
[2021-05-14 16:29] VITALS: BP 124/43; PULSE 81
== END 2021-05-14 14:50 | disposition home or self-care (01) ==
LOC: JONCCHEMO 07:56
PROVIDERS: ATTEND Internal Medicine Hematology & Oncology
PROC: 3E02305 Introduction of Other Antineoplastic into Muscle, Percutaneous Approach (ICD-10-PCS; principal; 2021-05-14)
PROC: 3E013GC Introduction of Other Therapeutic Substance into Subcutaneous Tissue, Percutaneous Approach (ICD-10-PCS; 2021-05-14)
DX: Z51.11 Encounter for antineoplastic chemotherapy (principal); C50.412 Malignant neoplasm of upper-outer quadrant of left female breast; C78.01 Secondary malignant neoplasm of right lung; C79.51 Secondary malignant neoplasm of bone; Z17.0 Estrogen receptor positive status [ER+]
CPT/HCPCS: 36415; 80048; 80076; 82378; 82607; 82728; 83540; 83550; 83735; 85025; 86300; 96372; 96402; J0897; J9395

== ENCOUNTER 2021-05-25 04:38 | Day surgery (SDC) | payer OTHER, MEDICARE ==
[2021-05-21 12:59] VITALS: BMI 27.8
[~2021-05-25 04:38] MED LIST changes: +BUPIVACAINE HCL/PF 0.5% (5MG/ML) 10 ML VIAL IJ ONE; -DENOSUMAB 120 MG/1.7 ML VIAL SQ ONE; -FULVESTRANT 250 MG/5 ML SYRINGE IM ONE; +IOHEXOL 180 MG/1 ML ML IJ ONE; +LIDOCAINE HCL 1% PRESERVATIVE FREE - 30ML VIAL IJ ONE; +TRIAMCINOLONE ACETONIDE 40 MG/ML 10 ML VIAL IJ ONE
[2021-05-25] MEDS ORDERED: LIDOCAINE HCL/PF 1% SDV 5ML VIAL ONE (07:18)
[2021-05-25] MEDS ORDERED: TRIAMCINOLONE ACET 40MG/1ML VIAL ONE (07:19)
[2021-05-25] MEDS ORDERED: BUPIVACAINE HCL/PF 0.75% 10 ML VIAL ONE (07:20)
[2021-05-25] MEDS ORDERED: BUPIVACAINE HCL/PF 0.5% (5MG/ML) 10 ML VIAL ONE (07:20)
[2021-05-25] MEDS ORDERED: LIDOCAINE HCL 1% PRESERVATIVE FREE - 30ML VIAL IJ ONE (08:41)
[2021-05-25] MEDS ORDERED: IOHEXOL 180 MG/1 ML ML IJ ONE (08:41)
[2021-05-25] MEDS ORDERED: TRIAMCINOLONE ACETONIDE 40 MG/ML 10 ML VIAL IJ ONE (08:42)
[2021-05-25] MEDS ORDERED: BUPIVACAINE HCL/PF 0.5% (5MG/ML) 10 ML VIAL IJ ONE (08:42)
[2021-05-25 12:09] VITALS: BP 135/69; PULSE 89; TEMP 98
== END 2021-05-25 10:40 | disposition home or self-care (01) ==
LOC: JASU-SURG 04:38
PROVIDERS: ATTEND Pain Medicine Pain Medicine
PROC: 3E0U3BZ Introduction of Anesthetic Agent into Joints, Percutaneous Approach (ICD-10-PCS; 2021-05-25)
PROC: 3E0U33Z Introduction of Anti-inflammatory into Joints, Percutaneous Approach (ICD-10-PCS; principal; 2021-05-25 08:00)
DX: M53.3 Sacrococcygeal disorders, not elsewhere classified (principal); I10 Essential (primary) hypertension; E11.9 Type 2 diabetes mellitus without complications
CPT/HCPCS: 76000-TC-FY

== ENCOUNTER 2021-06-11 07:51 | Day surgery (SDC) | payer OTHER, MEDICARE ==
[2021-06-11] MEDS ORDERED: FULVESTRANT 250 MG/5 ML SYRINGE IM ONE (10:00)
[2021-06-11 14:38] LABS: BASO % 3.9 % (0-2.0); EOS % 1.2 % (0-4.5); HEMATOCRIT 29.6 % (32.4-45.2); HEMOGLOBIN 10.1 GM/dL (10.7-15.3); LYMPH % 29.8 % (8-40); MCH 38.3 pg (25.7-33.7); MCHC 34.2 g/dl (32.0-36.0); MEAN CELL VOLUME 111.8 fl (80-96); MEAN PLT VOLUME 7.6 fl (7.5-11.1); MONO % 5.7 % (3.8-10.2); NEUT % 59.4 % (42.8-82.8); PLATELET COUNT 340 10^3/uL (134-434); RBC 2.64 M/mm3 (3.60-5.2); RDW 16.9 % (11.6-15.6); WHITE BLOOD COUNT 2.5 K/mm3 (4.0-10.0)
[2021-06-11 14:52] LABS: ALBUMIN 3.5 g/dl (3.4-5.0); CALCIUM 9.2 mg/dL (8.5-10.1)
[2021-06-11 14:53] LABS: MAGNESIUM 1.8 mg/dL (1.8-2.4)
[2021-06-11 14:55] LABS: BILIRUBIN,DIRECT 0.2 mg/dL (0.0-0.2); CREATININE 0.9 mg/dL (0.55-1.3)
[2021-06-11 14:57] LABS: BILIRUBIN,TOTAL 0.4 mg/dL (0.2-1); TOT PROT 6.7 g/dl (6.4-8.2)
[2021-06-11 15:19] VITALS: BP 143/50; PULSE 83; TEMP 98.6
[2021-06-11 16:28] LABS: ANISOCYTOSIS 2+; MACROCYTOSIS 2+; OVALOCYTE 1+
== END 2021-06-11 15:00 | disposition home or self-care (01) ==
LOC: JONCCHEMO 07:51
PROVIDERS: ATTEND Internal Medicine Hematology & Oncology
DX: Z51.11 Encounter for antineoplastic chemotherapy (principal); C50.412 Malignant neoplasm of upper-outer quadrant of left female breast; C78.01 Secondary malignant neoplasm of right lung; C79.51 Secondary malignant neoplasm of bone; Z17.0 Estrogen receptor positive status [ER+]
CPT/HCPCS: 36415; 80048; 80076; 82378; 82728; 83540; 83550; 83735; 85025; 86300; 96401; J9395

== ENCOUNTER 2021-07-09 07:14 | Day surgery (SDC) | payer OTHER, MEDICARE ==
[2021-07-09] MEDS ORDERED: FULVESTRANT 250 MG/5 ML SYRINGE IM ONE (10:00)
[2021-07-09 14:09] LABS: HEMATOCRIT 28.1 % (32.4-45.2); HEMOGLOBIN 9.7 GM/dL (10.7-15.3); LYMPH % 24.3 % (8-40); MCH 38.9 pg (25.7-33.7); MCHC 34.5 g/dl (32.0-36.0); MEAN CELL VOLUME 112.9 fl (80-96); MEAN PLT VOLUME 8.1 fl (7.5-11.1); MONO % 8.2 % (3.8-10.2); NEUT % 62.5 % (42.8-82.8); PLATELET COUNT 271 10^3/uL (134-434); RBC 2.49 M/mm3 (3.60-5.2); RDW 17.2 % (11.6-15.6); WHITE BLOOD COUNT 2.4 K/mm3 (4.0-10.0)
[2021-07-09 14:36] LABS: ALBUMIN 3.4 g/dl (3.4-5.0); BLOOD UREA NITROGEN 15.7 mg/dL (7-18)
[2021-07-09 14:38] LABS: BILIRUBIN,DIRECT 0.1 mg/dL (0.0-0.2); CREATININE 0.7 mg/dL (0.55-1.3)
[2021-07-09 14:40] LABS: BILIRUBIN,TOTAL 0.4 mg/dL (0.2-1); TOT PROT 6.5 g/dl (6.4-8.2)
[2021-07-09 14:55] LABS: ANISOCYTOSIS 2+; MACROCYTOSIS 2+; OVALOCYTE 2+; TEAR DROP CELLS 1+
[2021-07-09 17:46] VITALS: BP 144/48; PULSE 81; TEMP 98.4
== END 2021-07-09 13:55 | disposition home or self-care (01) ==
LOC: JONCCHEMO 07:14
PROVIDERS: ATTEND Internal Medicine Hematology & Oncology
DX: Z51.11 Encounter for antineoplastic chemotherapy (principal); C50.412 Malignant neoplasm of upper-outer quadrant of left female breast; C78.01 Secondary malignant neoplasm of right lung; C79.51 Secondary malignant neoplasm of bone; Z17.0 Estrogen receptor positive status [ER+]
CPT/HCPCS: 36415; 80048; 80076; 82378; 83036; 83735; 85025; 86300; 96402; J9395

== ENCOUNTER 2021-08-04 20:47 | Emergency (ER) | payer OTHER, MEDICARE ==
[2021-08-04 21:08] VITALS: BP 158/68; PULSE 89; TEMP 97.8; BMI 60.7
[2021-08-05] MEDS ORDERED: LIDOCAINE 5% TOPICAL PATCH TP ONE (02:13)
[2021-08-05] MEDS ORDERED: ACETAMINOPHEN 500 MG TABLET (FP) PO ONE (02:13)
[2021-08-05] MEDS ORDERED: KETOROLAC TROMETHAMINE 60 MG/2 ML VIAL IM PRN (02:42)
[2021-08-05] MEDS ORDERED: ACETAMINOPHEN 325 MG TABLET (FP) ONE (02:55)
[2021-08-05] MEDS ORDERED: LIDOCAINE 5% TOPICAL PATCH ONE (02:56)
[2021-08-05] MEDS ORDERED: LIDOCAINE PATCH REMOVAL MC SCH (22:00)
== END 2021-08-05 04:34 | disposition home or self-care (01) ==
LOC: JER 20:47
DX: M54.50 Low back pain, unspecified (principal); G89.29 Other chronic pain
CPT/HCPCS: 72131-TC; 72192-TC; 73700-TC-RT; 99285-25

== ENCOUNTER 2021-08-06 08:25 | Day surgery (SDC) | payer OTHER, MEDICARE ==
[2021-08-06] MEDS ORDERED: FULVESTRANT 250 MG/5 ML SYRINGE IM ONE (10:00)
[2021-08-06 14:29] LABS: BASO % 3.1 % (0-2.0); EOS % 1.8 % (0-4.5); HEMATOCRIT 27.7 % (32.4-45.2); HEMOGLOBIN 9.5 GM/dL (10.7-15.3); LYMPH % 24.9 % (8-40); MCH 39.1 pg (25.7-33.7); MCHC 34.2 g/dl (32.0-36.0); MEAN CELL VOLUME 114.4 fl (80-96); MEAN PLT VOLUME 7.5 fl (7.5-11.1); MONO % 8.7 % (3.8-10.2); NEUT % 61.5 % (42.8-82.8); PLATELET COUNT 367 10^3/uL (134-434); RBC 2.42 M/mm3 (3.60-5.2); RDW 15.8 % (11.6-15.6); WHITE BLOOD COUNT 2.8 K/mm3 (4.0-10.0)
[2021-08-06 14:49] LABS: CALCIUM 8.8 mg/dL (8.5-10.1)
[2021-08-06 14:50] LABS: ALBUMIN 3.3 g/dl (3.4-5.0); BLOOD UREA NITROGEN 11.4 mg/dL (7-18)
[2021-08-06 14:52] LABS: BILIRUBIN,DIRECT 0.2 mg/dL (0.0-0.2)
[2021-08-06 14:53] LABS: CREATININE 0.7 mg/dL (0.55-1.3)
[2021-08-06 14:54] LABS: BILIRUBIN,TOTAL 0.4 mg/dL (0.2-1)
[2021-08-06 14:55] LABS: TOT PROT 6.6 g/dl (6.4-8.2)
[2021-08-06 15:19] LABS: ANISOCYTOSIS 2+; MACROCYTOSIS 1+; OVALOCYTE 2+
[2021-08-06 15:20] VITALS: BP 144/57; PULSE 92; TEMP 98.2
== END 2021-08-06 14:30 | disposition home or self-care (01) ==
LOC: JONCCHEMO 08:25
PROVIDERS: ATTEND Internal Medicine Hematology & Oncology
DX: Z51.11 Encounter for antineoplastic chemotherapy (principal); C50.412 Malignant neoplasm of upper-outer quadrant of left female breast; C78.01 Secondary malignant neoplasm of right lung; C79.51 Secondary malignant neoplasm of bone; Z17.0 Estrogen receptor positive status [ER+]
CPT/HCPCS: 36415; 80048; 80076; 82378; 83735; 85025; 86256; 86300; 96402; J9395

== ENCOUNTER 2021-08-20 04:25 | Day surgery (SDC) | payer OTHER, MEDICARE ==
[2021-08-18 13:24] VITALS: BMI 27.8
[2021-08-20] MEDS ORDERED: LIDOCAINE 1% P/F 10 MG/ML VIAL INF ONE (09:37)
[2021-08-20] MEDS ORDERED: IOHEXOL 180 MG/1 ML ML IJ ONE (09:37)
[2021-08-20] MEDS ORDERED: BUPIVACAINE HCL/PF 0.75% 10 ML VIAL PNB ONE (09:37)
[2021-08-20 10:39] VITALS: BP 133/65; PULSE 85; TEMP 97.2
== END 2021-08-20 10:56 | disposition home or self-care (01) ==
LOC: JASU-SURG 04:25
PROVIDERS: ATTEND Pain Medicine Pain Medicine
PROC: 3E0T33Z Introduction of Anti-inflammatory into Peripheral Nerves and Plexi, Percutaneous Approach (ICD-10-PCS; 2021-08-20)
PROC: 3E0T3BZ Introduction of Anesthetic Agent into Peripheral Nerves and Plexi, Percutaneous Approach (ICD-10-PCS; principal; 2021-08-20 10:00)
DX: M47.816 Spondylosis without myelopathy or radiculopathy, lumbar region (principal)
CPT/HCPCS: 76000-TC-FY

== ENCOUNTER 2021-09-03 08:00 | Day surgery (SDC) | payer OTHER, MEDICARE ==
[2021-09-03] MEDS ORDERED: FULVESTRANT 250 MG/5 ML SYRINGE IM ONE (10:00)
[2021-09-03 13:10] LABS: BASO % 2.7 % (0-2.0); EOS % 3.8 % (0-4.5); HEMATOCRIT 29.9 % (32.4-45.2); HEMOGLOBIN 10.2 GM/dL (10.7-15.3); MCH 39.5 pg (25.7-33.7); MCHC 34.3 g/dl (32.0-36.0); MEAN CELL VOLUME 115.1 fl (80-96); MEAN PLT VOLUME 8.1 fl (7.5-11.1); MONO % 6.1 % (3.8-10.2); NEUT % 66.4 % (42.8-82.8); PLATELET COUNT 311 10^3/uL (134-434); RDW 15.6 % (11.6-15.6); WHITE BLOOD COUNT 3.1 K/mm3 (4.0-10.0)
[2021-09-03 13:36] LABS: CALCIUM 9.2 mg/dL (8.5-10.1)
[2021-09-03 13:37] LABS: ALBUMIN 3.6 g/dl (3.4-5.0); BLOOD UREA NITROGEN 14.2 mg/dL (7-18); MAGNESIUM 2.1 mg/dL (1.8-2.4)
[2021-09-03 13:40] LABS: BILIRUBIN,DIRECT 0.1 mg/dL (0.0-0.2); CREATININE 0.7 mg/dL (0.55-1.3)
[2021-09-03 13:42] LABS: BILIRUBIN,TOTAL 0.3 mg/dL (0.2-1)
[2021-09-03 14:34] LABS: ANISOCYTOSIS 1+; MACROCYTOSIS 1+; OVALOCYTE 1+; PLATELET ESTIMATE NORMAL
[2021-09-03 16:38] VITALS: BP 169/59; PULSE 85; TEMP 98.4
== END 2021-09-03 14:40 | disposition home or self-care (01) ==
LOC: JONCCHEMO 08:00
PROVIDERS: ATTEND Internal Medicine Hematology & Oncology
DX: Z51.11 Encounter for antineoplastic chemotherapy (principal); C50.412 Malignant neoplasm of upper-outer quadrant of left female breast; C78.01 Secondary malignant neoplasm of right lung; C79.51 Secondary malignant neoplasm of bone; Z17.0 Estrogen receptor positive status [ER+]
CPT/HCPCS: 36415; 80048; 80076; 82378; 83735; 85025; 86300; 96402; J9395

== ENCOUNTER 2021-09-10 04:15 | Day surgery (SDC) | payer OTHER, MEDICARE ==
[2021-09-03 10:26] VITALS: BMI 27.8
[2021-09-10 07:53] VITALS: BP 148/69; PULSE 84; TEMP 98
== END 2021-09-10 10:15 | disposition home or self-care (01) ==
LOC: JASU-SURG 04:15
PROVIDERS: ATTEND Pain Medicine Pain Medicine
DX: Z53.8 Procedure and treatment not carried out for other reasons (principal)

== ENCOUNTER 2021-09-24 04:04 | Day surgery (SDC) | payer OTHER, MEDICARE ==
[2021-09-23 11:16] VITALS: BMI 27.8
[2021-09-24] MEDS ORDERED: LIDOCAINE HCL/PF 1% SDV 5ML VIAL ONE ×2 (07:29→10:46)
[2021-09-24] MEDS ORDERED: BUPIVACAINE HCL/PF 0.75% 10 ML VIAL ONE (07:29)
[2021-09-24] MEDS ORDERED: BUPIVACAINE HCL/PF 0.75% 10 ML VIAL NR ONE ×2 (10:47→10:58)
[2021-09-24] MEDS ORDERED: LIDOCAINE HCL 1% PRESERVATIVE FREE - 30ML VIAL IJ ONE ×2 (10:48→10:58)
[2021-09-24] MEDS ORDERED: IOHEXOL 180 MG/1 ML ML IJ ONE (10:49)
[2021-09-24 11:27] VITALS: BP 151/55; PULSE 81; TEMP 97.7
== END 2021-09-24 11:42 | disposition home or self-care (01) ==
LOC: JASU-SURG 04:04
PROVIDERS: ATTEND Pain Medicine Pain Medicine
PROC: 3E0T33Z Introduction of Anti-inflammatory into Peripheral Nerves and Plexi, Percutaneous Approach (ICD-10-PCS; 2021-09-24)
PROC: 3E0T3BZ Introduction of Anesthetic Agent into Peripheral Nerves and Plexi, Percutaneous Approach (ICD-10-PCS; principal; 2021-09-24 10:15)
DX: M47.816 Spondylosis without myelopathy or radiculopathy, lumbar region (principal)
CPT/HCPCS: 76000-TC-FY

== ENCOUNTER 2021-09-27 07:00 | Day surgery (SDC) | payer OTHER, MEDICARE ==
[2021-09-27] MEDS ORDERED: FULVESTRANT 250 MG/5 ML SYRINGE IM ONE (10:00)
[2021-09-27 14:34] LABS: HEMATOCRIT 28.5 % (32.4-45.2); HEMOGLOBIN 9.8 GM/dL (10.7-15.3); MCH 39.4 pg (25.7-33.7); MCHC 34.3 g/dl (32.0-36.0); MEAN PLT VOLUME 8.1 fl (7.5-11.1); PLATELET COUNT 235 10^3/uL (134-434); RBC 2.48 M/mm3 (3.60-5.2); RDW 15.5 % (11.6-15.6); WHITE BLOOD COUNT 2.9 K/mm3 (4.0-10.0)
[2021-09-27 15:00] LABS: ANISOCYTOSIS 1+; MACROCYTOSIS 0
[2021-09-27 15:08] LABS: CALCIUM 8.8 mg/dL (8.5-10.1)
[2021-09-27 15:09] LABS: ALBUMIN 3.5 g/dl (3.4-5.0); BLOOD UREA NITROGEN 17.2 mg/dL (7-18); MAGNESIUM 2.3 mg/dL (1.8-2.4)
[2021-09-27 15:11] LABS: BILIRUBIN,DIRECT 0.2 mg/dL (0.0-0.2)
[2021-09-27 15:12] LABS: CREATININE 0.7 mg/dL (0.55-1.3)
[2021-09-27 15:13] LABS: BILIRUBIN,TOTAL 0.3 mg/dL (0.2-1); TOT PROT 6.9 g/dl (6.4-8.2)
[2021-09-27 18:19] VITALS: BP 151/42; PULSE 89; TEMP 98
== END 2021-09-27 14:30 | disposition home or self-care (01) ==
LOC: JONCCHEMO 07:00
PROVIDERS: ATTEND Internal Medicine Hematology & Oncology
DX: Z51.11 Encounter for antineoplastic chemotherapy (principal); C50.412 Malignant neoplasm of upper-outer quadrant of left female breast; C78.01 Secondary malignant neoplasm of right lung; C79.51 Secondary malignant neoplasm of bone; Z17.0 Estrogen receptor positive status [ER+]
CPT/HCPCS: 36415; 80048; 80076; 82378; 83735; 85025; 86300; 96402; J9395

== ENCOUNTER 2021-10-22 04:33 | Day surgery (SDC) | payer OTHER, MEDICARE ==
[2021-10-21 11:10] VITALS: BMI 28.5
[2021-10-22] MEDS ORDERED: BUPIVACAINE HCL/PF 0.25% (2.5MG/ML) 10 ML VIAL ONE (07:37)
[2021-10-22] MEDS ORDERED: LIDOCAINE HCL/PF 1% SDV 5ML VIAL ONE (07:38)
[2021-10-22] MEDS ORDERED: DEXAMETHASONE SOD PHOSPHATE 10 MG/1 ML VIAL ONE (07:39)
[2021-10-22] MEDS ORDERED: LIDOCAINE HCL/PF 2% SDV 5ML VIAL INF ONE (10:04)
[2021-10-22] MEDS ORDERED: BUPIVACAINE HCL/PF 0.75% 10 ML VIAL NR ONE (10:05)
[2021-10-22] MEDS ORDERED: DEXAMETHASONE SOD PHOSPHATE 10 MG/1 ML VIAL IM ONE (10:07)
[2021-10-22 12:07] VITALS: TEMP 97.2
[2021-10-22 14:37] VITALS: BP 132/52; PULSE 80
== END 2021-10-22 11:17 | disposition home or self-care (01) ==
LOC: JASU-SURG 04:33
PROVIDERS: ATTEND Pain Medicine Pain Medicine
PROC: 3E0T3TZ Introduction of Destructive Agent into Peripheral Nerves and Plexi, Percutaneous Approach (ICD-10-PCS; principal; 2021-10-22 08:30)
DX: M47.816 Spondylosis without myelopathy or radiculopathy, lumbar region (principal)
CPT/HCPCS: 76000-TC-FY; J1100

== ENCOUNTER 2021-10-27 09:18 | Day surgery (SDC) | payer OTHER, MEDICARE ==
[2021-10-27 14:59] LABS: BASO % 1.8 % (0-2.0); EOS % 3.8 % (0-4.5); HEMATOCRIT 28.4 % (32.4-45.2); HEMOGLOBIN 9.6 GM/dL (10.7-15.3); LYMPH % 26.9 % (8-40); MCH 38.7 pg (25.7-33.7); MCHC 33.9 g/dl (32.0-36.0); MEAN CELL VOLUME 114.3 fl (80-96); MEAN PLT VOLUME 8.1 fl (7.5-11.1); MONO % 6.3 % (3.8-10.2); NEUT % 61.2 % (42.8-82.8); PLATELET COUNT 276 10^3/uL (134-434); RBC 2.49 M/mm3 (3.60-5.2); RDW 15.7 % (11.6-15.6); WHITE BLOOD COUNT 2.6 K/mm3 (4.0-10.0)
[2021-10-27] MEDS ORDERED: FULVESTRANT 250 MG/5 ML SYRINGE IM ONE (15:15)
[2021-10-27 15:47] LABS: CALCIUM 8.8 mg/dL (8.5-10.1)
[2021-10-27 15:48] LABS: ALBUMIN 3.2 g/dl (3.4-5.0); BLOOD UREA NITROGEN 13.2 mg/dL (7-18)
[2021-10-27 15:51] LABS: BILIRUBIN,DIRECT 0.2 mg/dL (0.0-0.2); CREATININE 0.9 mg/dL (0.55-1.3)
[2021-10-27 15:52] LABS: BILIRUBIN,TOTAL 0.4 mg/dL (0.2-1); TOT PROT 6.5 g/dl (6.4-8.2)
[2021-10-27 16:04] VITALS: BP 111/46; PULSE 87; TEMP 98.2
== END 2021-10-27 15:45 | disposition home or self-care (01) ==
LOC: JONCCHEMO 09:18
PROVIDERS: ATTEND Internal Medicine Hematology & Oncology
DX: Z51.11 Encounter for antineoplastic chemotherapy (principal); C50.412 Malignant neoplasm of upper-outer quadrant of left female breast; C78.01 Secondary malignant neoplasm of right lung; C79.51 Secondary malignant neoplasm of bone; Z17.0 Estrogen receptor positive status [ER+]
CPT/HCPCS: 36415; 80048; 80076; 83735; 85025; 86300; 86301; 96402; J9395

== ENCOUNTER 2021-11-24 08:05 | Day surgery (SDC) | payer OTHER, MEDICARE ==
[2021-11-24] MEDS ORDERED: FULVESTRANT 250 MG/5 ML SYRINGE IM ONE (10:00)
[2021-11-24 14:45] LABS: BASO % 3.4 % (0-2.0); EOS % 3.9 % (0-4.5); HEMATOCRIT 26.3 % (32.4-45.2); HEMOGLOBIN 9.1 GM/dL (10.7-15.3); LYMPH % 26.9 % (8-40); MCH 39.4 pg (25.7-33.7); MCHC 34.7 g/dl (32.0-36.0); MEAN CELL VOLUME 113.6 fl (80-96); MONO % 8.8 % (3.8-10.2); PLATELET COUNT 313 10^3/uL (134-434); RBC 2.32 M/mm3 (3.60-5.2); RDW 15.7 % (11.6-15.6); WHITE BLOOD COUNT 2.6 K/mm3 (4.0-10.0)
[2021-11-24 14:56] VITALS: BP 132/76; PULSE 87; RESP 22; TEMP 97.8
[2021-11-24 15:08] LABS: ALBUMIN 3.3 g/dl (3.4-5.0); BLOOD UREA NITROGEN 11.9 mg/dL (7-18); MAGNESIUM 2.1 mg/dL (1.8-2.4)
[2021-11-24 15:10] LABS: ANISOCYTOSIS 1+; CREATININE 0.8 mg/dL (0.55-1.3); MACROCYTOSIS 1+
[2021-11-24 15:11] LABS: BILIRUBIN,DIRECT 0.1 mg/dL (0.0-0.2)
[2021-11-24 15:13] LABS: BILIRUBIN,TOTAL 0.3 mg/dL (0.2-1); TOT PROT 6.6 g/dl (6.4-8.2)
== END 2021-11-24 14:45 | disposition home or self-care (01) ==
LOC: JONCCHEMO 08:05
PROVIDERS: ATTEND Internal Medicine Hematology & Oncology
DX: Z51.11 Encounter for antineoplastic chemotherapy (principal); C50.412 Malignant neoplasm of upper-outer quadrant of left female breast; C78.01 Secondary malignant neoplasm of right lung; C79.51 Secondary malignant neoplasm of bone; Z17.0 Estrogen receptor positive status [ER+]
CPT/HCPCS: 36415; 80048; 80076; 82378; 83735; 85025; 86300; 96402; J9395

== ENCOUNTER 2021-12-19 04:32 | Observation (INO) | payer OTHER, MEDICARE ==
[2021-12-19] MEDS ORDERED: LIDOCAINE 5% TOPICAL PATCH TP ONE (05:16)
[2021-12-19] MEDS ORDERED: LIDOCAINE 5% TOPICAL PATCH ONE (05:31)
[2021-12-19] MEDS ORDERED: traMADol HCL 50 MG TABLET PO ONE ×2 (05:40→05:43)
[2021-12-19] MEDS ORDERED: traMADol HCL 50 MG TABLET ONE ×2 (06:18→12:47)
[2021-12-19] MEDS ORDERED: METHOCARBAMOL 500 MG TABLET PO ONE (08:45)
[2021-12-19] MEDS ORDERED: METHOCARBAMOL 500 MG TABLET ONE (08:51)
[2021-12-19] MEDS ORDERED: morphine CARPU-JECT 2 MG/1 ML DISP.SYRIN IVPUSH ONE (09:07)
[2021-12-19 09:14] LABS: HEMATOCRIT 27.1 % (32.4-45.2); HEMOGLOBIN 9.2 GM/dL (10.7-15.3); MCH 38.3 pg (25.7-33.7); MCHC 33.7 g/dl (32.0-36.0); MEAN CELL VOLUME 113.6 fl (80-96); MEAN PLT VOLUME 8.3 fl (7.5-11.1); PLATELET COUNT 267 10^3/uL (134-434); RBC 2.39 M/mm3 (3.60-5.2); RDW 16.1 % (11.6-15.6); WHITE BLOOD COUNT 2.6 K/mm3 (4.0-10.0)
[2021-12-19 09:27] LABS: CALCIUM 8.6 mg/dL (8.5-10.1)
[2021-12-19 09:28] LABS: ALBUMIN 3.2 g/dl (3.4-5.0); BLOOD UREA NITROGEN 16.1 mg/dL (7-18)
[2021-12-19 09:31] LABS: CREATININE 0.7 mg/dL (0.55-1.3)
[2021-12-19 09:32] LABS: BILIRUBIN,TOTAL 0.4 mg/dL (0.2-1); TOT PROT 6.8 g/dl (6.4-8.2)
[2021-12-19 12:28] LABS: ANISOCYTOSIS 0; MACROCYTOSIS 1+; OVALOCYTE 1+
[2021-12-19] MEDS: traMADol HCL 50 MG TABLET PO PRN ×2 (12:59→21:51)
[2021-12-19 15:04] VITALS: BMI 29.0
[2021-12-19] MEDS: metFORMIN HCL 500 MG TABLET (FP) PO SCH (15:58)
[2021-12-19] MEDS: AMOX TR/POT CLAV 875MG/125MG TABLETS (FP) PO SCH (17:10)
[2021-12-19] MEDS: LIDOCAINE PATCH REMOVAL MC SCH ×2 (17:48→22:31)
[2021-12-19] MEDS ORDERED: PRAMIPEXOLE DIHYDROCHLORIDE 0.25 MG TABLET PO SCH (22:00)
[2021-12-19] MEDS ORDERED: TERAZOSIN HCL 1 MG CAPSULE PO SCH (22:00)
[2021-12-19] MEDS ORDERED: NORTRIPTYLINE HCL 10 MG CAPSULE PO SCH (22:00)
[2021-12-20] MEDS: AMOX TR/POT CLAV 875MG/125MG TABLETS (FP) PO SCH (08:22)
[2021-12-20] MEDS: traMADol HCL 50 MG TABLET PO PRN (08:23)
[2021-12-20] MEDS: metFORMIN HCL 500 MG TABLET (FP) PO SCH ×2 (08:23→17:37)
[2021-12-20 09:13] VITALS: BP 123/50; PULSE 81; RESP 20; TEMP 98.7
[2021-12-20] MEDS ORDERED: GABAPENTIN 100 MG CAPSULE PO SCH (10:00)
[2021-12-20] MEDS ORDERED: FAMOTIDINE 20 MG TABLET PO SCH (10:00)
[2021-12-20] MEDS ORDERED: ENOXAPARIN NA (PORCINE) 40 MG/0.4 ML DISP.SYRIN SQ SCH (10:00)
[2021-12-20] MEDS ORDERED: LOSARTAN POTASSIUM 25 MG TABLET PO SCH (10:00)
[2021-12-20] MEDS ORDERED: LORATADINE 10 MG TABLET PO SCH (10:00)
[2021-12-20] MEDS ORDERED: rOPINIRole HCL 2 MG TABLET (FP) PO SCH (22:00)
== END 2021-12-20 18:07 | disposition home or self-care (01) ==
LOC: JER 04:32 → JERBED 08:21 → J6S 14:36
PROVIDERS: ADMIT Internal Medicine; ATTEND Internal Medicine
PROC: 3E023GC Introduction of Other Therapeutic Substance into Muscle, Percutaneous Approach (ICD-10-PCS; principal; 2021-12-19)
PROC: 3E033NZ Introduction of Analgesics, Hypnotics, Sedatives into Peripheral Vein, Percutaneous Approach (ICD-10-PCS; 2021-12-19)
PROC: 3E023NZ Introduction of Analgesics, Hypnotics, Sedatives into Muscle, Percutaneous Approach (ICD-10-PCS; 2021-12-19)
DX: M79.604 Pain in right leg (principal); M79.605 Pain in left leg; E11.9 Type 2 diabetes mellitus without complications; I10 Essential (primary) hypertension; Z88.8 Allergy status to other drugs, medicaments and biological substances; W01.0XXA Fall on same level from slipping, tripping and stumbling without subsequent striking against object, initial encounter; Y93.89 Activity, other specified; C50.919 Malignant neoplasm of unspecified site of unspecified female breast; Y92.009 Unspecified place in unspecified non-institutional (private) residence as the place of occurrence of the external cause
CPT/HCPCS: 36415; 70450-TC; 72125-TC; 72128-TC; 72170-TC-FY; 73030-TC-LT-FY; 73030-TC-RT-FY; 73502-TC-RT-FY; 76937; 80053; 82962; 85025; 93005; 93010; 96372; 96374; 99285-25; C9803-CS; G0378; U0003; U0005

== ENCOUNTER 2021-12-24 10:11 | Day surgery (SDC) | payer OTHER, MEDICARE ==
[~2021-12-24 10:11] MED LIST changes: -BUPIVACAINE HCL/PF 0.5% (5MG/ML) 10 ML VIAL IJ ONE; +FULVESTRANT 250 MG/5 ML SYRINGE IM ONE; -IOHEXOL 180 MG/1 ML ML IJ ONE; -LIDOCAINE HCL 1% PRESERVATIVE FREE - 30ML VIAL IJ ONE; -TRIAMCINOLONE ACETONIDE 40 MG/ML 10 ML VIAL IJ ONE
[2021-12-24 14:37] VITALS: BP 138/48; PULSE 81; RESP 18; TEMP 98.7
[2021-12-24 14:45] LABS: BASO % 2.6 % (0-2.0); EOS % 3.7 % (0-4.5); HEMATOCRIT 28.7 % (32.4-45.2); HEMOGLOBIN 9.8 GM/dL (10.7-15.3); LYMPH % 31.6 % (8-40); MCH 38.7 pg (25.7-33.7); MCHC 34.1 g/dl (32.0-36.0); MEAN CELL VOLUME 113.4 fl (80-96); MONO % 7.9 % (3.8-10.2); NEUT % 54.2 % (42.8-82.8); PLATELET COUNT 357 10^3/uL (134-434); RBC 2.53 M/mm3 (3.60-5.2); RDW 15.5 % (11.6-15.6); WHITE BLOOD COUNT 2.6 K/mm3 (4.0-10.0)
[2021-12-24 15:12] LABS: ALBUMIN 3.4 g/dl (3.4-5.0); BLOOD UREA NITROGEN 14.6 mg/dL (7-18); MAGNESIUM 1.8 mg/dL (1.8-2.4)
[2021-12-24 15:14] LABS: ANISOCYTOSIS 2+; BILIRUBIN,DIRECT 0.1 mg/dL (0.0-0.2); CALCIUM 8.9 mg/dL (8.5-10.1); MACROCYTOSIS 2+
[2021-12-24 15:15] LABS: CREATININE 0.8 mg/dL (0.55-1.3)
[2021-12-24 15:16] LABS: BILIRUBIN,TOTAL 0.2 mg/dL (0.2-1)
== END 2021-12-24 14:45 | disposition home or self-care (01) ==
LOC: JONCCHEMO 10:11
PROVIDERS: ATTEND Internal Medicine Hematology & Oncology
DX: Z51.11 Encounter for antineoplastic chemotherapy (principal); C50.412 Malignant neoplasm of upper-outer quadrant of left female breast; C79.51 Secondary malignant neoplasm of bone; C78.01 Secondary malignant neoplasm of right lung; Z17.0 Estrogen receptor positive status [ER+]
CPT/HCPCS: 36415; 80048; 80076; 82378; 83735; 85025; 86300; 96402; J9395

== ENCOUNTER 2021-12-31 04:57 | Day surgery (SDC) | payer OTHER, MEDICARE ==
[2021-12-29 14:51] VITALS: BMI 28.5
[2021-12-31] MEDS ORDERED: DEXAMETHASONE SOD PHOSPHATE 10 MG/1 ML VIAL ONE (07:24)
[2021-12-31] MEDS ORDERED: LIDOCAINE HCL/PF 1% SDV 5ML VIAL ONE (07:24)
[2021-12-31] MEDS ORDERED: BUPIVACAINE HCL/PF 0.75% 10 ML VIAL ONE (07:24)
[2021-12-31] MEDS ORDERED: BUPIVACAINE HCL 50 ML ONE (07:24)
[2021-12-31 08:48] VITALS: RESP 18
[2021-12-31] MEDS ORDERED: LIDOCAINE 1% P/F 10 MG/ML VIAL PNB ONE ×2 (10:25)
[2021-12-31] MEDS ORDERED: LIDOCAINE HCL/PF 2% SDV 5ML VIAL PNB ONE (10:25)
[2021-12-31] MEDS ORDERED: BUPIVACAINE HCL/PF 0.75% 10 ML VIAL PNB ONE (10:25)
[2021-12-31 11:35] VITALS: BP 160/64; PULSE 83; TEMP 98
== END 2021-12-31 11:47 | disposition home or self-care (01) ==
LOC: JASU-SURG 04:57
PROVIDERS: ATTEND Pain Medicine Pain Medicine
PROC: 0S5 Lower Joints, Destruction (ICD-10-PCS; principal; 2021-12-31 09:30)
DX: M53.3 Sacrococcygeal disorders, not elsewhere classified (principal)
CPT/HCPCS: 76000-TC-FY; J1100

== ENCOUNTER 2022-01-21 13:39 | Day surgery (SDC) | payer OTHER, MEDICARE ==
[2022-01-21 14:12] LABS: BASO % 1.3 % (0-2.0); EOS % 0.7 % (0-4.5); HEMATOCRIT 29.5 % (32.4-45.2); HEMOGLOBIN 9.6 GM/dL (10.7-15.3); MCH 37.7 pg (25.7-33.7); MCHC 32.6 g/dl (32.0-36.0); MEAN CELL VOLUME 115.5 fl (80-96); MEAN PLT VOLUME 8.3 fl (7.5-11.1); MONO % 5.1 % (3.8-10.2); NEUT % 69.9 % (42.8-82.8); PLATELET COUNT 254 10^3/uL (134-434); RBC 2.56 M/mm3 (3.60-5.2); RDW 15.6 % (11.6-15.6); WHITE BLOOD COUNT 2.2 K/mm3 (4.0-10.0)
[2022-01-21 14:36] LABS: ANISOCYTOSIS 2+; MACROCYTOSIS 2+
[2022-01-21 14:39] LABS: CALCIUM 9.1 mg/dL (8.5-10.1)
[2022-01-21 14:40] LABS: ALBUMIN 3.5 g/dl (3.4-5.0); BLOOD UREA NITROGEN 19.4 mg/dL (7-18)
[2022-01-21 14:43] LABS: BILIRUBIN,DIRECT 0.1 mg/dL (0.0-0.2); CREATININE 0.8 mg/dL (0.55-1.3)
[2022-01-21 14:45] LABS: BILIRUBIN,TOTAL 0.3 mg/dL (0.2-1)
[2022-01-21] MEDS ORDERED: FULVESTRANT 250 MG/5 ML SYRINGE IM ONE (15:00)
[2022-01-21 17:18] VITALS: BP 111/45; PULSE 84; RESP 18; TEMP 97.9
== END 2022-01-21 14:35 | disposition home or self-care (01) ==
LOC: JONCCHEMO 13:39
PROVIDERS: ATTEND Internal Medicine Hematology & Oncology
DX: Z51.11 Encounter for antineoplastic chemotherapy (principal); C50.412 Malignant neoplasm of upper-outer quadrant of left female breast; C79.51 Secondary malignant neoplasm of bone; C78.01 Secondary malignant neoplasm of right lung; Z17.0 Estrogen receptor positive status [ER+]
CPT/HCPCS: 36415; 80048; 80076; 82378; 83735; 85025; 86300; 96402; J9395

== ENCOUNTER 2022-02-18 08:22 | Day surgery (SDC) | payer OTHER, MEDICARE ==
[2022-02-18] MEDS ORDERED: FULVESTRANT 250 MG/5 ML SYRINGE IM ONE (10:00)
[2022-02-18 14:29] LABS: BASO % 2.3 % (0-2.0); EOS % 1.1 % (0-4.5); HEMOGLOBIN 10.2 GM/dL (10.7-15.3); LYMPH % 22.2 % (8-40); MCH 39.1 pg (25.7-33.7); MEAN PLT VOLUME 7.8 fl (7.5-11.1); MONO % 5.7 % (3.8-10.2); NEUT % 68.7 % (42.8-82.8); PLATELET COUNT 298 10^3/uL (134-434); RBC 2.61 M/mm3 (3.60-5.2); RDW 16.3 % (11.6-15.6)
[2022-02-18 14:59] LABS: ALBUMIN 3.3 g/dl (3.4-5.0); BLOOD UREA NITROGEN 11.3 mg/dL (7-18); CALCIUM 8.8 mg/dL (8.5-10.1); MAGNESIUM 2.1 mg/dL (1.8-2.4)
[2022-02-18 15:00] LABS: ANISOCYTOSIS 2+; MACROCYTOSIS 2+; OVALOCYTE 1+
[2022-02-18 15:03] LABS: BILIRUBIN,DIRECT 0.1 mg/dL (0.0-0.2); CREATININE 0.8 mg/dL (0.55-1.3)
[2022-02-18 15:05] LABS: BILIRUBIN,TOTAL 0.3 mg/dL (0.2-1); TOT PROT 6.9 g/dl (6.4-8.2)
[2022-02-18 16:41] VITALS: BP 135/52; PULSE 85; RESP 20; TEMP 98.3
== END 2022-02-18 13:55 | disposition home or self-care (01) ==
LOC: JONCCHEMO 08:22
PROVIDERS: ATTEND Internal Medicine Hematology & Oncology
DX: Z51.11 Encounter for antineoplastic chemotherapy (principal)
CPT/HCPCS: 36415; 80048; 80076; 82378; 83735; 85025; 86300; 96365; 96402; J9395

== ENCOUNTER 2022-03-18 14:19 | Day surgery (SDC) | payer OTHER, MEDICARE ==
[2022-03-18 14:24] LABS: BASO % 2.4 % (0-2.0); EOS % 0.9 % (0-4.5); HEMATOCRIT 28.8 % (32.4-45.2); HEMOGLOBIN 9.7 GM/dL (10.7-15.3); LYMPH % 23.2 % (8-40); MCH 39.2 pg (25.7-33.7); MCHC 33.8 g/dl (32.0-36.0); MEAN CELL VOLUME 116.2 fl (80-96); MONO % 7.2 % (3.8-10.2); NEUT % 66.3 % (42.8-82.8); PLATELET COUNT 272 10^3/uL (134-434); RBC 2.48 M/mm3 (3.60-5.2); RDW 16.8 % (11.6-15.6); WHITE BLOOD COUNT 2.3 K/mm3 (4.0-10.0)
[2022-03-18 14:49] LABS: BLOOD UREA NITROGEN 13.4 mg/dL (7-18)
[2022-03-18 14:50] LABS: ALBUMIN 3.3 g/dl (3.4-5.0)
[2022-03-18 14:52] LABS: BILIRUBIN,DIRECT 0.1 mg/dL (0.0-0.2); CREATININE 0.8 mg/dL (0.55-1.3)
[2022-03-18 14:54] LABS: BILIRUBIN,TOTAL 0.3 mg/dL (0.2-1); TOT PROT 6.9 g/dl (6.4-8.2)
[2022-03-18 15:04] LABS: ANISOCYTOSIS 2+; MACROCYTOSIS 2+
[2022-03-18 16:10] VITALS: BP 140/59; PULSE 87; RESP 20; TEMP 98
== END 2022-03-18 14:40 | disposition home or self-care (01) ==
LOC: JONCCHEMO 14:19
PROVIDERS: ATTEND Internal Medicine Hematology & Oncology
DX: Z51.11 Encounter for antineoplastic chemotherapy (principal); C50.412 Malignant neoplasm of upper-outer quadrant of left female breast; C79.51 Secondary malignant neoplasm of bone; C78.01 Secondary malignant neoplasm of right lung; Z17.0 Estrogen receptor positive status [ER+]
CPT/HCPCS: 36415; 80048; 80076; 82378; 83735; 85025; 86300; 96402; J9395

== ENCOUNTER 2022-04-22 14:03 | Day surgery (SDC) | payer OTHER, MEDICARE ==
[2022-04-22 15:00] LABS: BASO % 0.1 % (0-2.0); EOS % 0.1 % (0-4.5); HEMATOCRIT 30.8 % (32.4-45.2); HEMOGLOBIN 10.2 GM/dL (10.7-15.3); LYMPH % 8.3 % (8-40); MCH 37.9 pg (25.7-33.7); MCHC 33.1 g/dl (32.0-36.0); MEAN CELL VOLUME 114.6 fl (80-96); MEAN PLT VOLUME 8.3 fl (7.5-11.1); MONO % 4.9 % (3.8-10.2); NEUT % 86.6 % (42.8-82.8); PLATELET COUNT 260 10^3/uL (134-434); RBC 2.69 M/mm3 (3.60-5.2); RDW 17.1 % (11.6-15.6); WHITE BLOOD COUNT 3.3 K/mm3 (4.0-10.0)
[2022-04-22 15:20] LABS: ALBUMIN 3.1 g/dl (3.4-5.0)
[2022-04-22 15:21] LABS: BLOOD UREA NITROGEN 23.4 mg/dL (7-18); MAGNESIUM 2.1 mg/dL (1.8-2.4)
[2022-04-22 15:23] LABS: BILIRUBIN,DIRECT 0.2 mg/dL (0.0-0.2); CREATININE 0.9 mg/dL (0.55-1.3)
[2022-04-22 15:25] LABS: BILIRUBIN,TOTAL 0.5 mg/dL (0.2-1); TOT PROT 6.6 g/dl (6.4-8.2)
[2022-04-22 15:52] LABS: ANISOCYTOSIS 2+; MACROCYTOSIS 2+
[2022-04-22 17:26] VITALS: BP 142/66; PULSE 94; RESP 18; TEMP 98.3
[2022-04-24 08:06] LABS: CARCINOEMBRYONIC ANTIGEN 15.6 ng/mL (0.0-4.7)
== END 2022-04-22 15:00 | disposition home or self-care (01) ==
LOC: JONCCHEMO 14:03
PROVIDERS: ATTEND Internal Medicine Hematology & Oncology
DX: Z51.11 Encounter for antineoplastic chemotherapy (principal); C50.412 Malignant neoplasm of upper-outer quadrant of left female breast; C79.51 Secondary malignant neoplasm of bone; C78.01 Secondary malignant neoplasm of right lung; Z17.0 Estrogen receptor positive status [ER+]
CPT/HCPCS: 36415; 80048; 80076; 82378; 83036; 83735; 85025; 86300; 96402; J9395

== ENCOUNTER 2022-05-20 14:01 | Day surgery (SDC) | payer OTHER, MEDICARE ==
[2022-05-20 14:44] LABS: BASO % 2.4 % (0-2.0); EOS % 3.3 % (0-4.5); HEMATOCRIT 28.9 % (32.4-45.2); HEMOGLOBIN 9.8 GM/dL (10.7-15.3); LYMPH % 25.3 % (8-40); MCH 38.2 pg (25.7-33.7); MCHC 33.7 g/dl (32.0-36.0); MEAN CELL VOLUME 113.3 fl (80-96); MEAN PLT VOLUME 8.3 fl (7.5-11.1); MONO % 7.4 % (3.8-10.2); NEUT % 61.6 % (42.8-82.8); PLATELET COUNT 240 10^3/uL (134-434); RBC 2.55 M/mm3 (3.60-5.2); RDW 16.8 % (11.6-15.6); WHITE BLOOD COUNT 2.8 K/mm3 (4.0-10.0)
[2022-05-20 15:06] LABS: CALCIUM 9.2 mg/dL (8.5-10.1)
[2022-05-20 15:07] LABS: ALBUMIN 3.3 g/dl (3.4-5.0); BLOOD UREA NITROGEN 11.9 mg/dL (7-18); MAGNESIUM 2.1 mg/dL (1.8-2.4)
[2022-05-20 15:08] LABS: ANISOCYTOSIS 2+; MACROCYTOSIS 2+
[2022-05-20 15:09] LABS: BILIRUBIN,DIRECT 0.1 mg/dL (0.0-0.2)
[2022-05-20 15:10] LABS: CREATININE 0.8 mg/dL (0.55-1.3)
[2022-05-20 15:11] LABS: BILIRUBIN,TOTAL 0.3 mg/dL (0.2-1)
[2022-05-20 17:25] VITALS: BP 139/65; PULSE 87; RESP 20; TEMP 98.1
== END 2022-05-20 14:40 | disposition home or self-care (01) ==
LOC: JONCCHEMO 14:01
PROVIDERS: ATTEND Internal Medicine Hematology & Oncology
DX: Z51.11 Encounter for antineoplastic chemotherapy (principal); C50.412 Malignant neoplasm of upper-outer quadrant of left female breast; C78.01 Secondary malignant neoplasm of right lung; C79.51 Secondary malignant neoplasm of bone; Z17.0 Estrogen receptor positive status [ER+]
CPT/HCPCS: 36415; 80048; 80076; 83735; 85025; 86300; 96402; J9395

== ENCOUNTER 2022-06-17 13:59 | Day surgery (SDC) | payer OTHER, MEDICARE ==
[2022-06-17 17:47] VITALS: BP 162/63; PULSE 96; RESP 20; TEMP 98.2
== END 2022-06-17 14:50 | disposition home or self-care (01) ==
LOC: JONCCHEMO 13:59
PROVIDERS: ATTEND Internal Medicine Hematology & Oncology
DX: Z51.11 Encounter for antineoplastic chemotherapy (principal); C50.412 Malignant neoplasm of upper-outer quadrant of left female breast; C78.01 Secondary malignant neoplasm of right lung; C79.51 Secondary malignant neoplasm of bone; Z17.0 Estrogen receptor positive status [ER+]
CPT/HCPCS: 96402; J9395

== ENCOUNTER 2022-06-28 04:22 | Day surgery (SDC) | payer OTHER, MEDICARE ==
[2022-06-24 13:07] VITALS: BMI 28.8
[~2022-06-28 04:22] MED LIST changes: +BUPIVACAINE HCL/PF 0.5% (5MG/ML) 10 ML VIAL PNB ONE; -FULVESTRANT 250 MG/5 ML SYRINGE IM ONE; +IOHEXOL 180 MG/1 ML ML IJ ONE; +LIDOCAINE 1% P/F 10 MG/ML VIAL SNB ONE
[2022-06-28] MEDS ORDERED: LIDOCAINE HCL/PF 1% SDV 5ML VIAL ONE (07:20)
[2022-06-28] MEDS ORDERED: BUPIVACAINE HCL/PF 0.5% (5MG/ML) 10 ML VIAL ONE (07:20)
[2022-06-28] MEDS ORDERED: BUPIVACAINE HCL/PF 0.5% (5MG/ML) 10 ML VIAL PNB ONE (09:40)
[2022-06-28 10:52] VITALS: BP 168/70; PULSE 96; RESP 20; TEMP 97.3
== END 2022-06-28 10:53 | disposition home or self-care (01) ==
LOC: JASU-SURG 04:22
PROVIDERS: ATTEND Pain Medicine Pain Medicine
PROC: 015B3ZZ Destruction of Lumbar Nerve, Percutaneous Approach (ICD-10-PCS; principal; 2022-06-28 09:00)
DX: M47.812 Spondylosis without myelopathy or radiculopathy, cervical region (principal)
CPT/HCPCS: 76000-TC-FY

== ENCOUNTER 2022-07-22 15:11 | Day surgery (SDC) | payer OTHER, MEDICARE ==
[~2022-07-22 15:11] MED LIST changes: -BUPIVACAINE HCL/PF 0.5% (5MG/ML) 10 ML VIAL PNB ONE; +FULVESTRANT 250 MG/5 ML SYRINGE IM ONE; -IOHEXOL 180 MG/1 ML ML IJ ONE; -LIDOCAINE 1% P/F 10 MG/ML VIAL SNB ONE
[2022-07-22] MEDS ORDERED: FULVESTRANT 250 MG/5 ML SYRINGE IM ONE (15:15)
[2022-07-22 18:04] VITALS: BP 164/45; PULSE 88; RESP 18; TEMP 98.5
== END 2022-07-22 15:50 | disposition home or self-care (01) ==
LOC: JONCCHEMO 15:11 → JERBED 15:12 → JONCCHEMO 15:50
PROVIDERS: ATTEND Internal Medicine Hematology & Oncology
DX: Z51.11 Encounter for antineoplastic chemotherapy (principal); C50.412 Malignant neoplasm of upper-outer quadrant of left female breast; C78.01 Secondary malignant neoplasm of right lung; C79.51 Secondary malignant neoplasm of bone; Z17.0 Estrogen receptor positive status [ER+]
CPT/HCPCS: 96402; J9395

== ENCOUNTER 2022-08-02 04:35 | Day surgery (SDC) | payer OTHER, MEDICARE ==
[2022-08-01 12:17] VITALS: BMI 28.8
[2022-08-02 09:45] VITALS: RESP 18
[2022-08-02] MEDS ORDERED: BUPIVACAINE HCL/PF 0.5% (5MG/ML) 10 ML VIAL IJ ONE ×4 (10:48)
[2022-08-02 11:54] VITALS: BP 116/72; PULSE 87; TEMP 97.5
[2022-08-02] MEDS ORDERED: ACETAMINOPHEN 500 MG TABLET (FP) PO PRN (16:26)
== END 2022-08-02 12:11 | disposition home or self-care (01) ==
LOC: JASU-SURG 04:35
PROVIDERS: ATTEND Pain Medicine Pain Medicine
PROC: 3E0T33Z Introduction of Anti-inflammatory into Peripheral Nerves and Plexi, Percutaneous Approach (ICD-10-PCS; 2022-08-02)
PROC: 3E0T3BZ Introduction of Anesthetic Agent into Peripheral Nerves and Plexi, Percutaneous Approach (ICD-10-PCS; principal; 2022-08-02 10:15)
DX: M47.812 Spondylosis without myelopathy or radiculopathy, cervical region (principal)
CPT/HCPCS: 76000-TC-FY

== ENCOUNTER 2022-08-26 13:47 | Day surgery (SDC) | payer OTHER, MEDICARE ==
[2022-08-26 15:12] VITALS: BP 120/54; PULSE 92; RESP 20; TEMP 98.5
== END 2022-08-26 14:30 | disposition home or self-care (01) ==
LOC: JONCCHEMO 13:47 → J7W 13:48 → JONCCHEMO 14:30
PROVIDERS: ATTEND Internal Medicine Hematology & Oncology
DX: Z51.11 Encounter for antineoplastic chemotherapy (principal); C50.919 Malignant neoplasm of unspecified site of unspecified female breast; C79.51 Secondary malignant neoplasm of bone
CPT/HCPCS: 96402; J9395

== ENCOUNTER 2022-09-09 03:52 | Day surgery (SDC) | payer OTHER, MEDICARE ==
[~2022-09-09 03:52] MED LIST changes: +BUPIVACAINE HCL/PF 0.5% (5MG/ML) 10 ML VIAL IJ ONE; +DEXAMETHASONE SOD PHOSPHATE 10 MG/1 ML VIAL IM ONE; -FULVESTRANT 250 MG/5 ML SYRINGE IM ONE; +LIDOCAINE HCL 1% PRESERVATIVE FREE - 30ML VIAL IJ ONE; +LIDOCAINE HCL/PF 2% SDV 5ML VIAL INF ONE
[2022-09-09 08:06] VITALS: BMI 28.8
[2022-09-09] MEDS ORDERED: LIDOCAINE HCL 1% PRESERVATIVE FREE - 30ML VIAL IJ ONE (10:17)
[2022-09-09] MEDS ORDERED: BUPIVACAINE HCL/PF 0.5% (5MG/ML) 10 ML VIAL IJ ONE (10:17)
[2022-09-09] MEDS ORDERED: DEXAMETHASONE SOD PHOSPHATE 10 MG/1 ML VIAL IM ONE (10:17)
[2022-09-09] MEDS ORDERED: LIDOCAINE HCL/PF 2% SDV 5ML VIAL INF ONE ×2 (10:17)
[2022-09-09] MEDS ORDERED: ACETAMINOPHEN 500 MG TABLET (FP) PO PRN (10:56)
[2022-09-09 11:11] VITALS: BP 157/67; PULSE 77; RESP 20; TEMP 98
== END 2022-09-09 11:20 | disposition home or self-care (01) ==
LOC: JASU-SURG 03:52
PROVIDERS: ATTEND Pain Medicine Pain Medicine
PROC: 01513ZZ Destruction of Cervical Nerve, Percutaneous Approach (ICD-10-PCS; principal; 2022-09-09 09:45)
DX: M47.812 Spondylosis without myelopathy or radiculopathy, cervical region (principal)
CPT/HCPCS: 76000-TC-FY; J1100

== ENCOUNTER 2022-09-23 13:39 | Day surgery (SDC) | payer OTHER, MEDICARE ==
[~2022-09-23 13:39] MED LIST changes: -BUPIVACAINE HCL/PF 0.5% (5MG/ML) 10 ML VIAL IJ ONE; -DEXAMETHASONE SOD PHOSPHATE 10 MG/1 ML VIAL IM ONE; +FULVESTRANT 250 MG/5 ML SYRINGE IM ONE; -LIDOCAINE HCL 1% PRESERVATIVE FREE - 30ML VIAL IJ ONE; -LIDOCAINE HCL/PF 2% SDV 5ML VIAL INF ONE
[2022-09-23 14:57] VITALS: BP 158/56; PULSE 86; RESP 20; TEMP 98.2
== END 2022-09-23 14:59 | disposition home or self-care (01) ==
LOC: JONCCHEMO 13:39 → J7W 13:43 → JONCCHEMO 14:59
PROVIDERS: ATTEND Internal Medicine Hematology & Oncology
DX: Z51.11 Encounter for antineoplastic chemotherapy (principal); C50.919 Malignant neoplasm of unspecified site of unspecified female breast; C79.51 Secondary malignant neoplasm of bone
CPT/HCPCS: 96402; J9395

== ENCOUNTER 2022-09-30 04:30 | Day surgery (SDC) | payer OTHER, MEDICARE ==
[2022-09-29 11:51] VITALS: BMI 28.3
[~2022-09-30 04:30] MED LIST changes: +BUPIVACAINE HCL/PF 0.75% 10 ML VIAL NR ONE; +DEXAMETHASONE SOD PHOSPHATE 10 MG/1 ML VIAL IVPUSH ONE; -FULVESTRANT 250 MG/5 ML SYRINGE IM ONE; +LIDOCAINE HCL 1% PRESERVATIVE FREE - 30ML VIAL IJ ONE; +LIDOCAINE HCL/PF 2% SDV 5ML VIAL PNB ONE
[2022-09-30] MEDS ORDERED: DEXAMETHASONE SOD PHOSPHATE 10 MG/1 ML VIAL ONE (07:43)
[2022-09-30] MEDS ORDERED: LIDOCAINE HCL/PF 1% SDV 5ML VIAL ONE ×2 (07:43→08:35)
[2022-09-30] MEDS ORDERED: LIDOCAINE HCL/PF 2% SDV 5ML VIAL ONE ×2 (07:43→07:52)
[2022-09-30] MEDS ORDERED: BUPIVACAINE HCL/PF 0.75% 10 ML VIAL ONE (07:43)
[2022-09-30] MEDS ORDERED: ACETAMINOPHEN 500 MG TABLET (FP) PO PRN (09:29)
[2022-09-30] MEDS ORDERED: LIDOCAINE HCL 1% PRESERVATIVE FREE - 30ML VIAL IJ ONE (11:30)
[2022-09-30] MEDS ORDERED: LIDOCAINE HCL/PF 2% SDV 5ML VIAL PNB ONE (11:30)
[2022-09-30] MEDS ORDERED: DEXAMETHASONE SOD PHOSPHATE 10 MG/1 ML VIAL IVPUSH ONE (11:40)
[2022-09-30] MEDS ORDERED: BUPIVACAINE HCL/PF 0.75% 10 ML VIAL NR ONE (11:40)
[2022-09-30 13:05] VITALS: BP 145/80; PULSE 82; RESP 20; TEMP 97.8
== END 2022-09-30 12:50 | disposition home or self-care (01) ==
LOC: JASU-SURG 04:30
PROVIDERS: ATTEND Pain Medicine Pain Medicine
PROC: 015B3ZZ Destruction of Lumbar Nerve, Percutaneous Approach (ICD-10-PCS; principal; 2022-09-30 11:45)
DX: M47.812 Spondylosis without myelopathy or radiculopathy, cervical region (principal)
CPT/HCPCS: 76000-TC-FY; J1100

== ENCOUNTER 2022-10-21 13:58 | Day surgery (SDC) | payer OTHER, MEDICARE ==
[~2022-10-21 13:58] MED LIST changes: -BUPIVACAINE HCL/PF 0.75% 10 ML VIAL NR ONE; -DEXAMETHASONE SOD PHOSPHATE 10 MG/1 ML VIAL IVPUSH ONE; +FULVESTRANT 250 MG/5 ML SYRINGE IM ONE; -LIDOCAINE HCL 1% PRESERVATIVE FREE - 30ML VIAL IJ ONE; -LIDOCAINE HCL/PF 2% SDV 5ML VIAL PNB ONE
[2022-10-21 16:50] VITALS: BP 138/60; PULSE 82; RESP 18; TEMP 98.2
== END 2022-10-21 14:45 | disposition home or self-care (01) ==
LOC: JONCCHEMO 13:58 → J7W 13:59 → JONCCHEMO 14:45
PROVIDERS: ATTEND Internal Medicine Hematology & Oncology
DX: Z51.11 Encounter for antineoplastic chemotherapy (principal); C50.919 Malignant neoplasm of unspecified site of unspecified female breast; C79.51 Secondary malignant neoplasm of bone
CPT/HCPCS: 96402; J9395

== ENCOUNTER 2022-11-18 13:39 | Day surgery (SDC) | payer OTHER, MEDICARE ==
[2022-11-18 18:44] VITALS: BP 116/79; PULSE 70; RESP 20; TEMP 97.6
== END 2022-11-18 14:10 | disposition home or self-care (01) ==
LOC: JONCCHEMO 13:39 → J7W 13:40 → JONCCHEMO 14:10
PROVIDERS: ATTEND Internal Medicine Hematology & Oncology
DX: Z51.11 Encounter for antineoplastic chemotherapy (principal); C50.412 Malignant neoplasm of upper-outer quadrant of left female breast; C78.01 Secondary malignant neoplasm of right lung; C79.51 Secondary malignant neoplasm of bone; Z17.0 Estrogen receptor positive status [ER+]
CPT/HCPCS: 96365; J9395

== ENCOUNTER 2022-12-16 14:17 | Day surgery (SDC) | payer OTHER, MEDICARE ==
[2022-12-16 17:21] VITALS: BP 129/53; PULSE 81; RESP 20; TEMP 97.9
== END 2022-12-16 15:00 | disposition home or self-care (01) ==
LOC: JONCCHEMO 14:17 → J7W 14:19 → JONCCHEMO 15:00
PROVIDERS: ATTEND Internal Medicine Hematology & Oncology
DX: Z51.11 Encounter for antineoplastic chemotherapy (principal); C50.919 Malignant neoplasm of unspecified site of unspecified female breast; C79.51 Secondary malignant neoplasm of bone
CPT/HCPCS: 96402; J9395

== ENCOUNTER 2023-02-10 10:15 | Day surgery (SDC) | payer OTHER, MEDICARE ==
[2023-02-10 16:11] VITALS: BP 126/41; PULSE 90; RESP 18; TEMP 98.4
== END 2023-02-10 10:50 | disposition home or self-care (01) ==
LOC: JONCCHEMO 10:15 → J7W 10:16 → JONCCHEMO 10:50
PROVIDERS: ATTEND Internal Medicine Hematology & Oncology
DX: Z51.11 Encounter for antineoplastic chemotherapy (principal); C50.812 Malignant neoplasm of overlapping sites of left female breast; C78.00 Secondary malignant neoplasm of unspecified lung; C79.51 Secondary malignant neoplasm of bone
CPT/HCPCS: 96402; J9395

== ENCOUNTER 2023-03-10 10:28 | Day surgery (SDC) | payer OTHER, MEDICARE ==
[2023-03-10 15:30] VITALS: BP 143/54; PULSE 88; RESP 20; TEMP 97.7
== END 2023-03-10 11:10 | disposition home or self-care (01) ==
LOC: JONCCHEMO 10:28 → J7W 10:29 → JONCCHEMO 11:10
PROVIDERS: ATTEND Internal Medicine Hematology & Oncology
DX: Z51.11 Encounter for antineoplastic chemotherapy (principal); C50.919 Malignant neoplasm of unspecified site of unspecified female breast
CPT/HCPCS: 96402; J9395

== ENCOUNTER 2023-04-07 10:03 | Day surgery (SDC) | payer OTHER, MEDICARE ==
[2023-04-07 15:49] VITALS: BP 152/46; PULSE 98; RESP 18; TEMP 97.9
== END 2023-04-07 10:55 | disposition home or self-care (01) ==
LOC: JONCCHEMO 10:03 → J7W 10:31 → JONCCHEMO 10:55
PROVIDERS: ATTEND Internal Medicine Hematology & Oncology
DX: Z51.11 Encounter for antineoplastic chemotherapy (principal); C50.919 Malignant neoplasm of unspecified site of unspecified female breast
CPT/HCPCS: 96402; J9395

== ENCOUNTER 2023-05-05 11:50 | Day surgery (SDC) | payer OTHER, MEDICARE ==
[2023-05-05 17:05] VITALS: BP 160/61; PULSE 75; RESP 20; TEMP 97.8
== END 2023-05-05 13:00 | disposition home or self-care (01) ==
LOC: J7W 11:50 → JONCCHEMO 11:50
PROVIDERS: ATTEND Internal Medicine Hematology & Oncology
DX: Z51.11 Encounter for antineoplastic chemotherapy (principal); C50.919 Malignant neoplasm of unspecified site of unspecified female breast
CPT/HCPCS: 96402; J9395

== ENCOUNTER 2023-06-02 10:34 | Day surgery (SDC) | payer OTHER, MEDICARE ==
[2023-06-02 11:11] LABS: BASO % 0.8 % (0-2.0); HEMATOCRIT 37.7 % (32.4-45.2); HEMOGLOBIN 12.8 GM/dL (10.7-15.3); LYMPH % 24.6 % (8-40); MCHC 34.1 g/dl (32.0-36.0); MEAN CELL VOLUME 88.2 fl (80-96); MEAN PLT VOLUME 7.6 fl (7.5-11.1); MONO % 6.8 % (3.8-10.2); NEUT % 61.8 % (42.8-82.8); PLATELET COUNT 306 10^3/uL (134-434); RBC 4.27 M/mm3 (3.60-5.2); RDW 14.9 % (11.6-15.6); WHITE BLOOD COUNT 4.8 K/mm3 (4.0-10.0)
[2023-06-02] MEDS: FULVESTRANT 250 MG/5 ML SYRINGE IM ONE (11:16)
[2023-06-02 11:50] LABS: POTASSIUM 4.1 mmol/L (3.5-5.1)
[2023-06-02 11:52] LABS: ALBUMIN 3.5 g/dl (3.4-5.0); BLOOD UREA NITROGEN 17.6 mg/dL (7-18); CALCIUM 9.4 mg/dL (8.5-10.1); MAGNESIUM 1.9 mg/dL (1.8-2.4)
[2023-06-02 11:56] LABS: CREATININE 0.8 mg/dL (0.55-1.3)
[2023-06-02 11:57] LABS: BILIRUBIN,TOTAL 0.3 mg/dL (0.2-1); TOT PROT 8.2 g/dl (6.4-8.2)
[2023-06-02 18:25] VITALS: BP 166/63; PULSE 67; RESP 18; TEMP 97.9
[2023-06-03 08:06] LABS: CARCINOEMBRYONIC ANTIGEN 4.7 ng/mL (0.0-4.7)
== END 2023-06-02 11:30 | disposition home or self-care (01) ==
LOC: JONCCHEMO 10:34 → J7W 10:35 → JONCCHEMO 11:30
PROVIDERS: ATTEND Internal Medicine Hematology & Oncology
DX: Z51.11 Encounter for antineoplastic chemotherapy (principal); C50.919 Malignant neoplasm of unspecified site of unspecified female breast
CPT/HCPCS: 36415; 80053; 82306; 82378; 83735; 85025; 86300; 96402; J9395

== ENCOUNTER 2023-06-30 10:58 | Day surgery (SDC) | payer OTHER, MEDICARE ==
[2023-06-30] MEDS: FULVESTRANT 250 MG/5 ML SYRINGE IM ONE (11:10)
[2023-06-30 15:23] VITALS: BP 140/46; PULSE 86; RESP 20; TEMP 97.7
== END 2023-06-30 11:30 | disposition home or self-care (01) ==
LOC: JONCCHEMO 10:58 → J7W 10:59 → JONCCHEMO 11:30
PROVIDERS: ATTEND Internal Medicine Hematology & Oncology
DX: Z51.11 Encounter for antineoplastic chemotherapy (principal); C50.919 Malignant neoplasm of unspecified site of unspecified female breast
CPT/HCPCS: 96402; J9395

== ENCOUNTER 2023-07-28 14:03 | Day surgery (SDC) | payer OTHER, MEDICARE ==
[2023-07-28] MEDS: FULVESTRANT 250 MG/5 ML SYRINGE IM ONE (14:16)
[2023-07-28 16:51] VITALS: BP 110/44; PULSE 82; RESP 16; TEMP 97.7
== END 2023-07-28 14:35 | disposition home or self-care (01) ==
LOC: JONCCHEMO 14:03 → J7W 14:04 → JONCCHEMO 14:35
PROVIDERS: ATTEND Internal Medicine Hematology & Oncology
DX: Z51.11 Encounter for antineoplastic chemotherapy (principal); C50.412 Malignant neoplasm of upper-outer quadrant of left female breast; Z17.0 Estrogen receptor positive status [ER+]
CPT/HCPCS: 96402; J9395

== ENCOUNTER 2023-08-25 12:14 | Day surgery (SDC) | payer OTHER, MEDICARE ==
[2023-08-25] MEDS: FULVESTRANT 250 MG/5 ML SYRINGE IM ONE (12:28)
[2023-08-25 13:31] VITALS: BP 168/56; PULSE 77; RESP 20; TEMP 97.7
== END 2023-08-25 12:43 | disposition home or self-care (01) ==
LOC: JONCCHEMO 12:14 → J7W 12:16 → JONCCHEMO 12:43
PROVIDERS: ATTEND Internal Medicine Hematology & Oncology
DX: Z51.11 Encounter for antineoplastic chemotherapy (principal); C50.412 Malignant neoplasm of upper-outer quadrant of left female breast
CPT/HCPCS: 96402; J9395

== ENCOUNTER 2023-09-22 12:15 | Day surgery (SDC) | payer OTHER, MEDICARE ==
[2023-09-22] MEDS: FULVESTRANT 250 MG/5 ML SYRINGE IM ONE (12:46)
[2023-09-22 12:55] LABS: BASO % 0.9 % (0-2.0); EOS % 3.1 % (0-4.5); HEMATOCRIT 36.3 % (32.4-45.2); HEMOGLOBIN 12.1 GM/dL (10.7-15.3); LYMPH % 23.8 % (8-40); MCH 29.6 pg (25.7-33.7); MCHC 33.3 g/dl (32.0-36.0); MEAN CELL VOLUME 88.8 fl (80-96); MEAN PLT VOLUME 7.2 fl (7.5-11.1); MONO % 6.8 % (3.8-10.2); NEUT % 65.4 % (42.8-82.8); PLATELET COUNT 347 10^3/uL (134-434); RBC 4.08 M/mm3 (3.60-5.2); RDW 13.9 % (11.6-15.6); WHITE BLOOD COUNT 5.3 K/mm3 (4.0-10.0)
[2023-09-22 13:14] LABS: CHLORIDE 100 mmol/L (98-107); POTASSIUM 4.4 mmol/L (3.5-5.1); SODIUM 135 mmol/L (136-145)
[2023-09-22 13:16] LABS: CALCIUM 9.1 mg/dL (8.5-10.1)
[2023-09-22 13:17] LABS: ALBUMIN 3.4 g/dl (3.4-5.0); ANION GAP 6 mmol/L (4-13); BLOOD UREA NITROGEN 15.8 mg/dL (7-18); CO2 28 mmol/L (21-32); GLUCOSE,RANDOM 108 mg/dL (74-106); MAGNESIUM 2.1 mg/dL (1.8-2.4)
[2023-09-22 13:20] LABS: CREATININE 0.8 mg/dL (0.55-1.3); IRON SERUM 76 ug/dL (50-175); SGOT/AST 19 U/L (15-37); SGPT/ALT 23 U/L (13-61)
[2023-09-22 13:21] LABS: BILIRUBIN,TOTAL 0.3 mg/dL (0.2-1)
[2023-09-22 13:22] LABS: TOT PROT 7.4 g/dl (6.4-8.2)
[2023-09-22 13:23] LABS: ALK PHOS 90 U/L (45-117)
[2023-09-22 16:28] VITALS: BP 149/63; PULSE 74; RESP 20; TEMP 98.1
== END 2023-09-22 13:00 | disposition home or self-care (01) ==
LOC: JONCCHEMO 12:15 → J7W 12:15 → JONCCHEMO 13:00
PROVIDERS: ATTEND Internal Medicine Hematology & Oncology
DX: Z51.11 Encounter for antineoplastic chemotherapy (principal); C50.412 Malignant neoplasm of upper-outer quadrant of left female breast
CPT/HCPCS: 36415; 80053; 82306; 82378; 82607; 82728; 83540; 83735; 84439; 84443; 85025; 86300; 96402; J9395

== ENCOUNTER 2023-10-20 12:13 | Day surgery (SDC) | payer OTHER, MEDICARE ==
[2023-10-20] MEDS: FULVESTRANT 250 MG/5 ML SYRINGE IM ONE (12:24)
[2023-10-20 16:22] VITALS: BP 136/43; PULSE 77; RESP 20; TEMP 97.9
== END 2023-10-20 12:45 | disposition home or self-care (01) ==
LOC: J7W 12:13 → JONCCHEMO 12:13
PROVIDERS: ATTEND Internal Medicine Hematology & Oncology
DX: Z51.11 Encounter for antineoplastic chemotherapy (principal); C50.412 Malignant neoplasm of upper-outer quadrant of left female breast
CPT/HCPCS: 96402; J9395

== ENCOUNTER 2023-11-17 11:33 | Day surgery (SDC) | payer OTHER, MEDICARE ==
[2023-11-17] MEDS: FULVESTRANT 250 MG/5 ML SYRINGE IM ONE (12:05)
[2023-11-17 18:56] VITALS: BP 112/62; PULSE 85; RESP 16; TEMP 98
== END 2023-11-17 12:30 | disposition home or self-care (01) ==
LOC: JONCCHEMO 11:33 → J7W 11:35 → JONCCHEMO 12:30
PROVIDERS: ATTEND Internal Medicine Hematology & Oncology
DX: Z51.11 Encounter for antineoplastic chemotherapy (principal); C50.919 Malignant neoplasm of unspecified site of unspecified female breast
CPT/HCPCS: 96401; 96402; J9395

== ENCOUNTER 2023-12-16 18:00 | Emergency (ER) | payer OTHER, MEDICARE ==
[2023-12-16 18:23] VITALS: TEMP 98.3; BMI 26.9
[2023-12-16 20:19] VITALS: RESP 18
[2023-12-16 21:11] VITALS: BP 162/73
[2023-12-16 21:51] VITALS: PULSE 80
== END 2023-12-16 23:07 | disposition home or self-care (01) ==
LOC: JER 18:00
DX: S00.03XA Contusion of scalp, initial encounter (principal); M41.84 Other forms of scoliosis, thoracic region; W01.198A Fall on same level from slipping, tripping and stumbling with subsequent striking against other object, initial encounter
CPT/HCPCS: 70450-TC; 72070-TC-FY; 72125-TC; 99284-25

== ENCOUNTER 2023-12-29 12:12 | Day surgery (SDC) | payer OTHER, MEDICARE ==
[2023-12-29] MEDS: FULVESTRANT 250 MG/5 ML SYRINGE IM ONE (12:19)
[2023-12-29 14:22] VITALS: BP 143/51; PULSE 71; RESP 18; TEMP 97.3
== END 2023-12-29 13:00 | disposition home or self-care (01) ==
LOC: JONCCHEMO 12:12 → J7W 12:14 → JONCCHEMO 13:00
PROVIDERS: ATTEND Internal Medicine Hematology & Oncology
DX: Z51.11 Encounter for antineoplastic chemotherapy (principal); C50.412 Malignant neoplasm of upper-outer quadrant of left female breast; Z17.0 Estrogen receptor positive status [ER+]
CPT/HCPCS: 96401; J9395

== ENCOUNTER 2024-02-02 11:41 | Day surgery (SDC) | payer OTHER, MEDICARE ==
[2024-02-02] MEDS: FULVESTRANT 250 MG/5 ML SYRINGE IM ONE (11:58)
[2024-02-02 17:43] VITALS: BP 116/42; PULSE 78; RESP 20; TEMP 98
== END 2024-02-02 12:15 | disposition home or self-care (01) ==
LOC: JONCCHEMO 11:41 → J7W 11:42 → JONCCHEMO 12:15
PROVIDERS: ATTEND Internal Medicine Hematology & Oncology
DX: Z51.11 Encounter for antineoplastic chemotherapy (principal); C50.412 Malignant neoplasm of upper-outer quadrant of left female breast
CPT/HCPCS: 96402; J9395

== ENCOUNTER 2024-03-01 12:34 | Day surgery (SDC) | payer OTHER, MEDICARE ==
[2024-03-01] MEDS: FULVESTRANT 250 MG/5 ML SYRINGE IM ONE (12:45)
[2024-03-01 18:22] VITALS: BP 142/56; PULSE 98; RESP 16; TEMP 97.8
== END 2024-03-01 13:10 | disposition home or self-care (01) ==
LOC: JONCCHEMO 12:34 → J7W 12:37 → JONCCHEMO 13:10
PROVIDERS: ATTEND Internal Medicine Hematology & Oncology
DX: Z51.11 Encounter for antineoplastic chemotherapy (principal); C50.412 Malignant neoplasm of upper-outer quadrant of left female breast
CPT/HCPCS: 96402; J9395

== ENCOUNTER 2024-03-29 12:09 | Day surgery (SDC) | payer OTHER, MEDICARE ==
[2024-03-29] MEDS: FULVESTRANT 250 MG/5 ML SYRINGE IM ONE (12:19)
[2024-03-29 16:05] VITALS: BP 139/48; PULSE 84; RESP 20; TEMP 97.6
== END 2024-03-29 12:40 | disposition home or self-care (01) ==
LOC: JONCNONCHE 12:09 → J7W 12:10 → JONCNONCHE 12:40
PROVIDERS: ATTEND Internal Medicine Hematology & Oncology
DX: Z51.11 Encounter for antineoplastic chemotherapy (principal); C50.412 Malignant neoplasm of upper-outer quadrant of left female breast
CPT/HCPCS: 96402; J9395

== ENCOUNTER 2024-06-20 20:50 | Observation (INO) | payer OTHER, MEDICARE ==
[2024-06-20 21:14] VITALS: BMI 28.8
[2024-06-20] MEDS: MECLIZINE HCL 12.5 MG TABLET PO ONE (22:30)
[2024-06-20] MEDS ORDERED: MECLIZINE HCL 12.5 MG TABLET ONE (22:39)
[2024-06-20 23:13] LABS: BASO % 0.6 % (0-2.0); EOS % 0.2 % (0-4.5); HEMATOCRIT 40.6 % (32.4-45.2); HEMOGLOBIN 13.6 GM/dL (10.7-15.3); LYMPH % 10.5 % (8-40); MCH 29.7 pg (25.7-33.7); MCHC 33.6 g/dl (32.0-36.0); MEAN CELL VOLUME 88.6 fl (80-96); MEAN PLT VOLUME 7.2 fl (7.5-11.1); MONO % 1.8 % (3.8-10.2); NEUT % 86.9 % (42.8-82.8); PLATELET COUNT 325 10^3/uL (134-434); RBC 4.58 M/mm3 (3.60-5.2); RDW 13.5 % (11.6-15.6); WHITE BLOOD COUNT 5.1 K/mm3 (4.0-10.0)
[2024-06-20 23:40] LABS: POTASSIUM 4.4 mmol/L (3.5-5.1)
[2024-06-20 23:42] LABS: CALCIUM 9.6 mg/dL (8.5-10.1)
[2024-06-20 23:43] LABS: ALBUMIN 3.9 g/dl (3.4-5.0); MAGNESIUM 2.1 mg/dL (1.8-2.4)
[2024-06-20 23:46] LABS: PHOSPHOROUS 3.4 mg/dL (2.5-4.9)
[2024-06-20 23:47] LABS: BILIRUBIN,TOTAL 0.4 mg/dL (0.2-1)
[2024-06-20 23:48] LABS: TOT PROT 8.8 g/dl (6.4-8.2)
[2024-06-21] MEDS: MECLIZINE HCL 12.5 MG TABLET PO ONE (00:03)
[2024-06-21 00:28] LABS: HIV INTERPRETATION NEGATIVE (NEGATIVE)
[2024-06-21 00:55] VITALS: TEMP 98.1
[2024-06-21 01:56] LABS: URINE APPEARANCE CLEAR; URINE BILIRUBIN NEGATIVE (NEGATIVE); URINE COLOR YELLOW; URINE GLUCOSE (UA) TRACE (NEGATIVE); URINE KETONE NEGATIVE (NEGATIVE); URINE LEUK ESTERASE NEGATIVE (NEGATIVE); URINE NITRITE NEGATIVE (NEGATIVE); URINE PROTEIN TRACE (NEGATIVE); URINE UROBILINOGEN 0.2 mg/dL (0.2-1.0)
[2024-06-21] MEDS ORDERED: metFORMIN HCL 500 MG TABLET (FP) ONE (02:11)
[2024-06-21] MEDS: rOPINIRole HCL 1 MG TABLET (FP) PO ONE (02:45)
[2024-06-21] MEDS: TERAZOSIN HCL 2 MG CAPSULE PO ONE (02:45)
[2024-06-21] MEDS: metFORMIN HCL 500 MG TABLET (FP) PO ONE (02:45)
[2024-06-21] MEDS ORDERED: LEVOTHYROXINE NA 25 MCG TABLET (FP) ONE (07:31)
[2024-06-21] MEDS ORDERED: LORATADINE 10 MG TABLET ONE (07:32)
[2024-06-21 07:36] LABS: HEMATOCRIT 37.7 % (32.4-45.2); HEMOGLOBIN 13.1 GM/dL (10.7-15.3); MCH 30.4 pg (25.7-33.7); MCHC 34.8 g/dl (32.0-36.0); MEAN CELL VOLUME 87.5 fl (80-96); MEAN PLT VOLUME 7.5 fl (7.5-11.1); PLATELET COUNT 328 10^3/uL (134-434); RDW 13.4 % (11.6-15.6); WHITE BLOOD COUNT 3.9 K/mm3 (4.0-10.0)
[2024-06-21] MEDS: LEVOTHYROXINE NA 25 MCG TABLET (FP) PO SCH (07:37)
[2024-06-21] MEDS: LORATADINE 10 MG TABLET PO SCH (07:38)
[2024-06-21 08:01] LABS: POTASSIUM 4.5 mmol/L (3.5-5.1)
[2024-06-21 08:07] LABS: CALCIUM 9.2 mg/dL (8.5-10.1)
[2024-06-21 08:09] LABS: ALBUMIN 3.6 g/dl (3.4-5.0); BLOOD UREA NITROGEN 20.2 mg/dL (7-18)
[2024-06-21 08:11] LABS: CREATININE 0.9 mg/dL (0.55-1.3)
[2024-06-21 08:13] LABS: BILIRUBIN,TOTAL 0.4 mg/dL (0.2-1); TOT PROT 8.2 g/dl (6.4-8.2)
[2024-06-21] MEDS: INSULIN ASPART SLIDING SCALE (NOVOLOG) 1 VIAL SQ SCH (09:09)
[2024-06-21] MEDS ORDERED: BIOTIN 5 MG PO SCH (10:00)
[2024-06-21] MEDS ORDERED: rOPINIRole HCL 1 MG TABLET (FP) PO SCH (10:00)
[2024-06-21 10:24] VITALS: BP 132/43; PULSE 95; RESP 16
[2024-06-21] MEDS ORDERED: LOSARTAN POTASSIUM 25 MG TABLET ONE (10:56)
[2024-06-21] MEDS ORDERED: ASCORBIC ACID 500 MG TABLET (FP) ONE (10:57)
[2024-06-21] MEDS ORDERED: ENOXAPARIN NA (PORCINE) 40 MG/0.4 ML DISP.SYRIN SQ ONE (10:58)
[2024-06-21] MEDS: rOPINIRole HCL 1 MG TABLET (FP) PO SCH (10:59)
[2024-06-21] MEDS: PYRIDOXINE HCL (B-6) 50 MG TABLET (FP) PO SCH (10:59)
[2024-06-21] MEDS: CALCIUM 500MG/VIT-D 200 UNITS COMBO TABLET (FP) PO SCH (10:59)
[2024-06-21] MEDS: LOSARTAN POTASSIUM 25 MG TABLET PO SCH (10:59)
[2024-06-21] MEDS: ENOXAPARIN NA (PORCINE) 40 MG/0.4 ML DISP.SYRIN SQ SCH (10:59)
[2024-06-21] MEDS: ASCORBIC ACID 500 MG TABLET (FP) PO SCH (10:59)
[2024-06-21] MEDS: rOPINIRole HCL 0.25 MG TABLET PO SCH (11:00)
[2024-06-21] MEDS ORDERED: ATORVASTATIN CA 10 MG TABLET (FP) PO SCH (22:00)
[2024-06-21] MEDS ORDERED: NORTRIPTYLINE HCL 10 MG CAPSULE PO SCH (22:00)
[2024-06-21] MEDS ORDERED: TERAZOSIN HCL 1 MG CAPSULE PO SCH (22:00)
== END 2024-06-21 14:11 | disposition home or self-care (01) ==
LOC: JER 20:50 → JERBED 06-21 02:34
PROVIDERS: ADMIT Student in an Organized Health Care Education/Training Program; ATTEND Nurse Practitioner Acute Care
PROC: 3E023GC Introduction of Other Therapeutic Substance into Muscle, Percutaneous Approach (ICD-10-PCS; principal; 2024-06-21)
PROC: 3E013VG Introduction of Insulin into Subcutaneous Tissue, Percutaneous Approach (ICD-10-PCS; 2024-06-21)
DX: E03.9 Hypothyroidism, unspecified (principal); R42 Dizziness and giddiness; E78.5 Hyperlipidemia, unspecified; E11.9 Type 2 diabetes mellitus without complications; Z85.3 Personal history of malignant neoplasm of breast; C79.9 Secondary malignant neoplasm of unspecified site; Z91.81 History of falling; M87.9 Osteonecrosis, unspecified; I10 Essential (primary) hypertension
CPT/HCPCS: 0241U-QW; 36415; 70450-TC; 70551-TC; 80053; 80061; 81003; 82962; 83036; 83735; 84100; 84484; 85025; 85027; 86803; 87086; 87389; 93005; 93010; 96372; 99285-25; G0378